=== PATIENT | female | born 1965 | race Caucasian/White ===

== ENCOUNTER 2016-10-30 16:38 | Emergency (ER) | payer MEDICARE, MEDICAID ==
[~2016-10-30] VITALS: Ht 168.9 cm; Wt 106.8 kg
[~2016-10-30 16:38] MED LIST: ALBU8.5H2 INHALATION; AMLO-39 PO; ASPI81TA3 PO; CARV25TA2 PO; CLOP75TA3 PO; FURO-128 PO; INSU100I13 SUBQ; INSU100V28 SUBQ; IPRA4AER IH; LORA0.5T PO; MULT-666 PO; NITR0.4T6 SL; PHO667 PO; RANI150C4 PO
[2016-10-30 16:50] VITALS: BP 130/65; PULSE 65; RESP 15; O2SAT 99
[2016-10-30 17:38] LABS: BASOPHILS % (AUTO) 0.2 % (0-3); EOSINOPHILS % (AUTO) 2.4 % (0-5); MONOCYTES % (AUTO) 6.6 % (4-12); Mean Corpuscular Hemoglobin 30.7 pg (27.0-35.0); Mean Corpuscular Volume 98.1 fL (81-100); NEUTROPHILS % (AUTO) 82.1 % (40-74); Platelet Count 389 bil/L (150-400)
[2016-10-30 17:54] LABS: INR 1.05 ratio
== END 2016-10-30 18:19 | disposition left against medical advice (07) ==
LOC: SED 16:38
DX: N23 Unspecified renal colic (principal)

== ENCOUNTER 2016-11-16 14:56 | Inpatient (IN) | payer MEDICARE, MEDICAID ==
[~2016-11-16] VITALS: Ht 167.6 cm; Wt 111.5 kg
[2016-11-16 15:08] VITALS: BP 138/68; PULSE 69; RESP 18; O2SAT 97
--- NOTE | 2016-11-16 16:18 | ED.REPORT ---
HPI-Extremity Problem Lower Date of Service Nov 16, 2016 ED Provider: Doc,Ed MD The patient is a 51 year old female with a history of diabetes mellitus, neuropathy, hypertension, hyperlipidemia, recurrent pneumonia, CHF, COPD, asthma, and end stage renal disease on dialysis, who presents to the emergency department complaining of a left toe ulcer that has been worsening over the last month. Her symptoms drastically worsened overnight. She has noticed some malodorous drainage from the site. Her left foot is also swollen and red. She has been soaking the wound in water and soap. She has not seen a business objects consultant or any other physician since onset. She has had similar symptoms on her right foot in the past that did not require amputation. She denies fever or chills. She has not been checking her sugars recently. Nursing Notes Stated Complaint: RT FOOT PAIN,ULCER Chief Complaint: Extremity Trauma Nursing Notes Reviewed: Yes Allergies: Coded Allergies: atenolol (Verified Adverse Reaction, Severe, PROFOUND HYPOTENSION, 11/16/16) Koklrjp-Dsc-Tao Reductase Inhibitor (Verified Adverse Reaction, Intermediate, Muscle Pain/Weakness, 11/16/16) clopidogrel (Verified Adverse Reaction, Intermediate, Bleeding, 11/16/16) ezetimibe (Verified Adverse Reaction, Intermediate, Muscle Pain/Muscle Weakness, 11/16/16) Scheduled Albuterol/Ipratropium (Combivent Respimat Inhal [employer]) 120 Spr/4 Gm Inhaler 1 PUFF IH QID Not taking Amlodipine (Norvasc) 5 Mg Tablet 5 MG PO HS Aspirin Chew (Aspirin Chew) 81 Mg Chew 81 MG PO HS Calcium Acetate (Phoslyra) 667 Mg/5 Ml Solution 667 MG PO TIDWM Doesn't remember to take often Carvedilol (Carvedilol) 25 Mg Tablet 25 MG PO BIDWM Cholecalciferol (Vitamin D3) (Vitamin D3) 50,000 Unit Capsule 50,000 UNIT PO WEEKLY Takes on Mondays Furosemide (Furosemide) 80 Mg Tab 80 MG PO HS Insulin Glargine (Lantus U100 Solostar Insulin Pen) 100 Unit/1 Ml Insuln.pen 30 UNIT SUBQ HS Insulin Regular, Human (HUMulin-R U100 Insulin Vial) 100 Unit/1 Ml Vial 3-6 UNIT SUBQ TIDWM SLIDING SCALE Lisinopril (Lisinopril) 5 Mg Tablet 5 MG PO HS Metolazone (Metolazone) 5 Mg Tablet 5 MG PO HS Multivitamin/Iron/Folic Acid (Cerovite Advanced Form Tab) 1 Each Tablet 1 EACH PO DAILY Sodium Polystyrene Sulfonate (Kionex) 15 Gm/60 Ml Oral.susp 15 GM PO //Sun Scheduled PRN Albuterol HFA (Proair HFA) 8.5 Gm Hfa.aer.ad 2 PUFFS INHALATION Q4H PRN PRN For Shortness of Breath Lorazepam (Lorazepam) 0.5 Mg Tablet 0.5 MG PO TID PRN PRN For Anxiety Uses mainly for insomnia Nitroglycerin SL (Nitroglycerin SL) 0.4 Mg Tab.subl 0.4 MG SL PRN HYPERtension Ranitidine (Ranitidine) 150 Mg Capsule 150 MG PO BID PRN PRN acid reflux Sumatriptan Succinate (Imitrex) 50 Mg Tablet 50 MG PO DAILY PRN PRN Migraines General Time Seen by MD: 16:17 Chief Complaint Foot injury left Hx Obtained From: Patient Arrived By: Walk-in Onset Occurred: More than a week ago... Symptom Duration: Since onset Location: : Foot left Quality: Painful Severity: Current: Mild Severity: Maximum: Moderate Additional Notes: +discharge Pertinent Negative: Pt denies other symptoms Recent Healthcare: No recent doctor visit, No recent hospitalization Similar Sx Previous: Yes (on right foot) Past Medical History Past Medical History Notes: PCP: Dr. Andrea Gandhi Fish Flipper: Dr. Grey [employer] Consultant: Dr. Bee Past Medical History CVA (07/15/14) Gallstones History of chronic headaches Multiple episodes of community-acquired pneumonia Chronic CHF secondary to diastolic dysfunction. Type 2 diabetes, insulin requiring with history of non adherence a. Nephropathy b. Diabetic Retinopathy c. Neuropathy d. Chronic nausea, suspected gastroparesis COPD reported though had fairly normal PFTs in 2011 Obesity BMI 38 Dyslipidemia Chronic abdominal discomfort. Prior history of bowel obstruction reportedly secondary to benign pelvic tumors. Ovarian cyst removal with bilateral oophorectomy and hysterectomy in 2000. Asthma HTN Hyperlipidemia ESRD dialysis dependency Sep 2014 Reports: Hyperlipidemia Past Surgical History Shunt rt forearm Bilateral oophorectomy Cardiac stents 06/29/15 Reports: , Hysterectomy Reports: Tubal ligation Smoking History Current Every Day Smoker Social History Alcohol Use: Denies alcohol use Drug Use: Denies drug use Other Social History: Ambulatory Status Independent Review of Systems Constitutional: Denies: Chills, Fever Musculoskeletal: Reports: Extremity pain, Joint pain Skin: Reports Rash, Reports Swelling Complete sys rev & neg: except as marked. Physical Exam Initial Vital Signs Vital Signs (First) Date Time Temp Pulse Resp B/P Pulse Ox O2 Delivery O2 Flow Rate FiO2 11/16/16 15:08 36.2 69 18 138/68 97 Initial VS: Reviewed Head / Eyes: Atraumatic, Normocephalic, PERRL ENT: Mucous membranes moist, Conjunctiva normal, No scleral icterus Neck: Supple, Non-tender, Full range of motion Respiratory: Breath sounds normal, Clear to auscultation, No respiratory distress Cardiovascular: Regular rate & rhythm, Heart sounds normal, Intact distal pulses Abdomen / GI: Soft, Non-tender, No guarding, No rebound, No distention Lymphatic: No lymphadenopathy Upper Extremities: Vascular intact, Neuro intact, No swelling, No tenderness Skin: Warm, Dry, No cyanosis Neurologic: Alert, Oriented, Nonfocal Psychiatric: Mood/affect normal, Behavior normal, Normal thought content Lower Extremity / Pelvis / MS: Neurologic intact, Vascular intact Ankle / Foot: Neurologic intact, Vascular intact Extremely malodorous and gangrenous appearing wound between her 3rd and 4th toes on the left foot. There is erythema and lymphangitis and edema of the left foot up to the ankle. Good PT and DP pulses. Sensation and motor intact. General/Constitutional: Awake, Alert, Cooperative Appearance / Presentation: Positive: Obese Upper Extremity / MS: Neurologic intact, Vascular intact Palpable graft in her right forearm with a good thrill. Interpretation & Diagnostics Lab Results Interpretation Result Diagram: 11/16/16 1657 11/16/16 1657 Test 11/16/16 16:57 White Blood Count 13.0th/mm3 (3.8-10.1) Red Blood Count 2.84mil/mm3 (3.90-5.20) Hemoglobin 8.8g/dL (12.0-15.6) Hematocrit 29.5% (35.0-46.0) Mean Corpuscular Volume 103.9fL (81-100) Mean Corpuscular Hemoglobin 31.0pg (27.0-35.0) Mean Corpuscular Hemoglobin Concent 29.8% (32.0-37.0) Red Cell Distribution Width 14.9% (12.3-15.4) Platelet Count 393bil/L (150-400) Neutrophils (%) (Auto) 81.4% (40-74) Lymphocytes (%) (Auto) 9.1% (14-46) Monocytes (%) (Auto) 6.8% (4-12) Eosinophils (%) (Auto) 2.0% (0-5) Basophils (%) (Auto) 0.2% (0-3) Erythrocyte Sedimentation Rate > 140mm/hr (0-40) Sodium Level 139mEq/L (134-144) Potassium Level 4.4mEq/L (3.5-5.2) Chloride Level 91mEq/L (97-108) Carbon Dioxide Level 29mmol/L (18-29) Blood Urea Nitrogen 56mg/dL (6-24) Creatinine 7.22mg/dL (0.57-1.00) Estimat Glomerular Filtration Rate 8mL/min (>59) Glucose Level 211mg/dL (60-99) Lactic Acid Level 1.4mmol/L (0.4-2.0) Calcium Level 8.3mg/dL (8.5-10.1) Phosphorus Level 7.5mg/dL (2.5-4.9) Magnesium Level 2.1mg/dL (1.6-2.6) Total Bilirubin 0.2mg/dL (0.0-1.2) Aspartate Amino Transf (AST/SGOT) 6U/L (0-50) Alanine Aminotransferase (ALT/SGPT) 5U/L (0-32) Alkaline Phosphatase 64U/L (25-150) Total Protein 7.6g/dL (6.4-8.4) Albumin 3.5g/dL (3.4-5.0) Procalcitonin 0.27ng/mL (0.00-0.08) Hold Zavala Top Tube Received (Received) X-Ray Interpretation Xray Interpretation: IMPRESSION: No bony abnormality is seen. Prominent atherosclerotic calcifications are seen. No radiopaque foreign body is identified. Dictated by: Joshua Taylor M.D. on 11/16/2016 at 18:03 X-Ray Ordered: Foot left Interpretation / Wet Read by: Interpret - Radiologist Re-Eval/Medical Decision Med Decision/Clinical Course 51-year-old female with past medical history of diabetes, on dialysis Sunday and Sunday here with worsening of a foot wound. Differential diagnosis includes but is not limited to cellulitis versus osteomyelitis versus necrotizing fasciitis versus electrolyte abnormality. Exam is not consistent with necrotizing fasciitis, and at this time, I do not feel she needs an emergent surgical consultation. He does not show evidence of osteomyelitis. Blood cultures were drawn, and patient was given vancomycin and Zosyn in the emergency department. I discussed with podiatry Dr Pardo who will see the patient in the morning, and have admitted the patient to the hospitalist service. Additionally, I discussed with nephrology Dr. Eddy who will be dialyzing the patient tomorrow. Patient is aware and amenable to plan. Source of Hx: Old records Re-Evaluation/Progress : Time of Eval: 18:00 Re-Evaluation/Progress Note: Discussed plan for admission with the patient. She is agreeable to stay. Consultation #1: Referral / Consult Name: Radha Pardo DPM Call Returned at: 18:55 Note: Discussed the patient's case with the on-call business objects consultant. She agrees to consult. Consultation #2: Referral / Consult Name: Roseline Maynard DO Consulted With: Hospitalist Call Returned at: 18:59 [employer]: Will see patient, Agrees with eval, Agrees with plan, Accepts admit Consultation #3: Referral / Consult Name: Malik Eddy DO Consulted With: Nephrology Requested Call at: 19:03 [employer]: Agrees with eval, Agrees with plan Note: Agrees to consult. Counseled Regarding: Diagnosis, Lab results, Need for admission Discharge & Departure Impression: Primary Impression: Diabetic foot ulcer Diabetes mellitus type: type 2 Laterality: left Qualified Code: E11.621 - Type 2 diabetes mellitus with foot ulcer Disposition: ADMITTED TO HOSPITAL Discharge Condition All VS Reviewed: Yes Condition: Stable Referrals: Andrea Gandhi MD Attestation Portions of this note were transcribed by Izabella Triana. IDr. Mahmood personally performed the history, physical exam and medical decision-making; I reviewed and confirmed the accuracy of the information in the transcribed note. Signed by: Noman Mobley, 11/16/2016 and 1905. copies to: OksanaAndrea josé MD, Rebecca A MD Nov 16, 2016 16:18 Kong,Izabella Banerjee Nov 16, 2016 16:33
[2016-11-16] MEDS ORDERED: 0.9% Sodium Chloride 1,000 ML IV ONE (16:31)
[2016-11-16] MEDS ORDERED: Piperacillin-Tazo 3.375 Gm Inj 3.375 GM in Dextrose 5% Minibag Plus 50 ML IV ONE (16:35)
[2016-11-16 17:09] LABS: BASOPHILS % (AUTO) 0.2 % (0-3); MONOCYTES % (AUTO) 6.8 % (4-12); Mean Corpuscular Volume 103.9 fL (81-100); NEUTROPHILS % (AUTO) 81.4 % (40-74); Platelet Count 393 bil/L (150-400)
[2016-11-16 17:34] LABS: Magnesium 2.1 mg/dL (1.6-2.6); Phosphorus 7.5 mg/dL (2.5-4.9)
[2016-11-16 17:40] LABS: ERYTHROCYTE SEDIMENTATION RATE > 140 mm/hr (0-40)
--- NOTE | 2016-11-16 18:05 | DRSVH ---
PROCEDURE: X-RAY LEFT FOOT COMPLETE, MINIMUM THREE VIEWS ([id number]) INDICATIONS: diabetic wound between 3rd and 4th digits TECHNIQUE: 3 views of the foot were acquired. COMPARISON: None. FINDINGS: Bones: No fractures or dislocations. No suspicious bony lesions. No erosive changes. Soft tissues: No tibiotalar joint effusion. Achilles tendon appears normal. Prominent atherosclero tic calcifications are present. IMPRESSION: No bony abnormality is seen. Prominent atherosclerotic calcifications are seen. No radiop aque foreign body is identified. Dictated by: Joshua Taylor M.D. on 11/16/2016 at 18:03 Approved by: Joshua Taylor M.D. on 11/16/2016 at 18:04
[2016-11-16] MEDS ORDERED: Furosemide 10 mg/mL 4 mL Inj IVPUSH ONE (18:20)
[2016-11-16] MEDS: Furosemide 10 mg/mL 2 mL Inj IVPUSH ONE ×2 (18:21→18:22)
[2016-11-16] MEDS ORDERED: Ondansetron 2 mg/mL 2 mL Inj IVPUSH PRN (19:05)
[2016-11-16] MEDS: Vancomycin Dose per Pharmacist XX SCH (19:05)
[2016-11-16] MEDS ORDERED: Polyethylene Glycol (PEG) 17 Gm Powder PO PRN (19:05)
[2016-11-16] MEDS ORDERED: VANCOMYCIN IV ONE (19:15)
[2016-11-16] MEDS ORDERED: LISI-571 PO (19:54)
[2016-11-16] MEDS ORDERED: ASPI81TA3 PO ×2 (20:02)
[2016-11-16] MEDS ORDERED: FRSM80T PO (20:03)
[2016-11-16] MEDS ORDERED: MULT1TAB59 PO (20:05)
[2016-11-16] MEDS ORDERED: METO5TAB5 PO (20:07)
[2016-11-16] MEDS ORDERED: SUMA50TA31 PO (20:08)
[2016-11-16] MEDS ORDERED: RANI150C4 PO (20:08)
[2016-11-16 20:10] VITALS: BP 145/70; PULSE 69; RESP 20; O2SAT 96
[2016-11-16] MEDS ORDERED: CHOL500050 PO (20:10)
[2016-11-16] MEDS ORDERED: CALC667S PO (20:11)
[2016-11-16] MEDS ORDERED: SODI15OR2 PO (20:12)
[2016-11-16 20:24] VITALS: BP 152/83; PULSE 73; RESP 20; O2SAT 92; O2SAT 95
--- NOTE | 2016-11-16 20:25 | PCM.CONPHA ---
Subjective Requesting Provider: Roseline Maynard DO Reason for Pharmacy Consult: Vancomycin Dosing Assessment/Plan Assessment/Plan Vancomycin dosing for diabetic foot with goal trough 15-20, with concurrent piperacillin/tazobactam: Vancomycin 1.25 Grams IV was given in the ER around 1630. Another 500mg was given at 2030 for a total of 1750mg. The patient has ESRD and is on dialysis. The floor pharmacist tomorrow will determine the dialysis schedule and order levels and subsequent dosing. WBC=13,000 Cultures pending. Xochitl Portillo [facility] Nov 16, 2016 20:25
[2016-11-16] MEDS ORDERED: Non-Formulary Medication (Ranitidine 150 MG) PO PRN (20:40)
[2016-11-16] MEDS ORDERED: Albuterol HFA 60 Puff 8 Gm Inhaler INHALATION PRN (20:40)
[2016-11-16] MEDS ORDERED: Glucose 40% Oral Gel 15 Gm Tube PO PRN (20:50)
--- NOTE | 2016-11-16 20:51 | PCM.HPMED ---
Subjective Date of Service Nov 16, 2016 Primary Provider: Admitting Physician: Roseline Maynard DO Primary Care Physician: Mata Attending Physician: Roseline Maynard DO Chief Complaint: Foot pain and swelling History of Present Illness: Juancarlos Robles is an obese 51-year-old female with history of diabetes on insulin and end-stage renal disease on hemodialysis (Mo, Fr), and significant peripheral arterial disease who presents to the ER (from urgent care) with 1 month complaint of nonhealing ulcers/lesions to her left third and fourth toes which acutely worsened yesterday with increased swelling, redness, pain to the left foot. Patient reports that she had a previous occurrence on her right foot years ago which healed well with conservative management at home. She notes that she has long-standing neuropathy in both feet, but states that she is able to feel. She reports that she first noted the lesions on her left third and fourth toes one month ago, and reports soaking her foot in soapy water, and keeping it covered with bandages. She reports that it would seem to get better, and then get worse again. She has not seen a physician for this. She has not been on any antibiotics in the last 3-6 months. She reports that she does not check her sugars very much, and there is some question of compliance. She reports that approximately one day ago she noticed the left foot started to swell, and get slightly red, and there was an increase in pain leading to her presentation at the urgent care clinic (and therefore) ER tonight. In the ER, her vital signs look good, but based on the appearance of the foot itself patient was started on empiric vancomycin and Zosyn. An x-ray of the foot did not demonstrate bony involvement. She was given 1 L of fluid IV, but subsequently noted some increased shortness of breath (she reports that she gets this way with too much fluid), and was given an IV dose of Lasix. ER physician discussed the case with nephrology and also with podiatry/orthopedics , and they agree with decision to admit for further management, and those specialists will be seeing the patient in the morning. Patient is admitted under inpatient status with expected length of stay greater than 2 midnights due to severity of presenting symptoms, risk of adverse event, and complexity of treatment plan. Review of Systems: Patient reports chronic, mildly productive cough for many years. She also reports occasional headaches but not currently. She reports some shortness of breath, especially with laying back, and attributes this to the fluid that she received in the ER. She reports that she will occasionally choke or cough when drinking fluid. She reports long-standing chronic pain, especially in her shoulders (however she notes "pain all over") for which she takes aspirin (she takes a full dose aspirin daily for CAD and history of stroke, but reports that she will occasionally take one or 2 more for the pains she has been having). Comprehensive review of systems conducted and was negative except for the pertinent positives listed in history of present illness above. Allergies Coded Allergies: atenolol (Verified Adverse Reaction, Severe, PROFOUND HYPOTENSION, 11/16/16) Zvjgvhx-Ilf-Nab Reductase Inhibitor (Verified Adverse Reaction, Intermediate, Muscle Pain/Weakness, 11/16/16) clopidogrel (Verified Adverse Reaction, Intermediate, Bleeding, 11/16/16) ezetimibe (Verified Adverse Reaction, Intermediate, Muscle Pain/Muscle Weakness, 11/16/16) Home Medications From [facility] not yet completed: Juancarlos Robles [id number] 11/16/2016 02:00 PM 09/21 amlodipine 5 mg tablet take 1 tablet by oral route every day aspirin 81 mg tablet,delayed release take 1 tablet by oral route every day carvedilol 25 mg tablet take 1 tablet by oral route 2 times every day with food Cerovite Advanced Formula 18 mg-400 mcg tablet TAKE ONE TABLET BY MOUTH EVERY DAY furosemide 40 mg tablet take 1 tablet by oral route 2 times every day Humulin R 100 unit/mL injection solution inject by subcutaneous route as per insulin sliding scale protocol LANTUS 100 UNITS/ML VIAL INJECT 30 UNITS SUBCUTANEOUSLY DAILY AT BEDTIME lisinopril 5 mg tablet take 1 tablet by oral route every day lorazepam 0.5 mg tablet take 1 tablet by oral route 2 times every day as needed multivitamin capsule take 1 capsule by oral route every day as needed nitroglycerin 0.[address] 1 tablet by sublingual route at the 1st sign of attack; may repeat every 5 min until relief; if pain persists after 3 tablets in 15 min, prompt medical attention is recommended Novolin R 100 unit/mL injection solution per prescriber's instructions. up to 10 units Pen Needle 32 x 5/32" INJECT LANTUS INSULIN DAILY True Metrix Glucose Meter Check blood sugars 5 times/day True Metrix Glucose Test Strip inject 1 by Subcutaneous route 5 times every day VENTOLIN HFA 90 MCG INHALER INHALE TWO PUFFS BY MOUTH EVERY 4 TO 6 HOURS NEEDED PMH CVA (07/15/14)-she reports residual effects difficulty with swallowing occasionally, and occasional left sided weakness Gallstones History of chronic headaches Multiple episodes of community-acquired pneumonia CAD status post UT with patient report of stent placement a. Patient underwent stress test with myocardial perfusion scanning 06/2016: * Impression was abnormal stress test consistent with prior infarction (fixed defect in the inferior wall) but low risk for significant ischemia. Also demonstrated dilated LV with moderately reduced function (stress EF 31%, rest EF 43%). No EKG changes at that time. No angina or equivalent. Chronic CHF secondary to diastolic dysfunction. a. -ECHO 06/2016, showed LV chamber mildly enlarged. EF 45-50%. Severe hypokinesis along the inferior wall and part of the inferolateral wall. RVSP estimated at 45. LA is moderately dilated, and RA is mildly dilated. Moderate MR. Type 2 diabetes, insulin requiring with history of non adherence a. Nephropathy b. Diabetic Retinopathy c. Neuropathy d. Chronic nausea, suspected gastroparesis e. Diabetic foot ulcers Peripheral arterial disease status post bilateral lower extremity vascular stent placement per patient report COPD reported though had fairly normal PFTs in 2011 Obesity BMI 39.5 Chronic abdominal discomfort. Prior history of bowel obstruction reportedly secondary to benign pelvic tumors. Ovarian cyst removal with bilateral oophorectomy and hysterectomy in 2000. Asthma HTN Hyperlipidemia ESRD dialysis dependency Sep 2014 (schedule is Sunday and Sunday) Past Surgical History Shunt rt forearm Bilateral oophorectomy Cardiac stents 06/29/15 Reports: , Hysterectomy Reports: Tubal ligation Family History Mother had liver cancer. Father had complications with "twisted gut" (torsion?) . Brother with a seizure disorder Father also had emphysema Mother also had colon cancer Social History Hx Alcohol Use: Yes Hx Substance Use: No Hx Tobacco Use: Yes Smoking Status: Current Every Day Smoker Living Arrangement: with Family ( in [place]) Additional Information patient is . She lives with her in [place]. She reports having 2 daughters and 1 son (she reports the son is ). Smoked one- half pack for 40 years with occasional periods of cessation, but currently smoking reportedly several cigarettes daily. No current alcohol or illicit drug use. Exam Vital Signs Vital Sign - Last Date Time Temp Pulse Resp B/P Pulse Ox O2 Delivery O2 Flow Rate FiO2 11/16/16 15:08 36.2 69 18 138/68 97 Exam General: Obese female lying on [facility] with head of bed approximately 45. Alert, Oriented X3, Cooperative, No Acute-mild Distress (does mention discomfort all over) Head: Normocephalic, atraumatic. External ears normal. Eyes: PERRL, EOMI. Anicteric sclerae. Conjunctiva are not injected Mouth: Mouth Normal, Mucous Membranes Moist/[place]. Poor dentition Neck: Neck supple with full range of motion. No Thyromegaly. Chest & Lungs: Clear to auscultation bilaterally with no crackles, or rhonchi. However, there are some scattered expiratory wheezes. Respiratory effort is normal without use of accessory muscles Cardiovascular: Regular Rate/Rhythm, Normal S1, Normal S2, 1/6 systolic murmur that does not radiate. No carotid bruits. Radial pulses are 2+ bilaterally. Posterior tibial pulses are about the same. Abdomen: Non-tender, Non-distended, No masses, Normoactive bowel tones, Soft Musculoskeletal: Normal Range of Motion Extremities: Left foot and calf demonstrates mild pitting edema that becomes nonpitting in the lower leg. There is some very mild erythema of the foot associated with mild tenderness to palpation. The left third and fourth toes demonstrates villegas/black discoloration consistent with potential necrotic tissue and are malodorous, but do not appreciate significant warmth. There is a well- healed ulceration on the dorsal surface of the great toe on the left. Pain is not out of proportion with exam and do not appreciate subcutaneous crepitus. Neurological: Grossly Neurologically Intact, Cranial Nerves 2-12 Intact, Normal Speech Psych: Normal mood and affect (perhaps minimally agitated with this situation) . Thought process and content intact. Lab and Diagnostics Labs Laboratory Tests 72 Hours Test 11/16/16 16:57 White Blood Count 13.0th/mm3 (3.8-10.1) Red Blood Count 2.84mil/mm3 (3.90-5.20) Hemoglobin 8.8g/dL (12.0-15.6) Hematocrit 29.5% (35.0-46.0) Mean Corpuscular Volume 103.9fL (81-100) Mean Corpuscular Hemoglobin 31.0pg (27.0-35.0) Mean Corpuscular Hemoglobin Concent 29.8% (32.0-37.0) Red Cell Distribution Width 14.9% (12.3-15.4) Platelet Count 393bil/L (150-400) Neutrophils (%) (Auto) 81.4% (40-74) Lymphocytes (%) (Auto) 9.1% (14-46) Monocytes (%) (Auto) 6.8% (4-12) Eosinophils (%) (Auto) 2.0% (0-5) Basophils (%) (Auto) 0.2% (0-3) Erythrocyte Sedimentation Rate > 140mm/hr (0-40) Sodium Level 139mEq/L (134-144) Potassium Level 4.4mEq/L (3.5-5.2) Chloride Level 91mEq/L (97-108) Carbon Dioxide Level 29mmol/L (18-29) Blood Urea Nitrogen 56mg/dL (6-24) Creatinine 7.22mg/dL (0.57-1.00) Estimat Glomerular Filtration Rate 8mL/min (>59) Glucose Level 211mg/dL (60-99) Lactic Acid Level 1.4mmol/L (0.4-2.0) Calcium Level 8.3mg/dL (8.5-10.1) Phosphorus Level 7.5mg/dL (2.5-4.9) Magnesium Level 2.1mg/dL (1.6-2.6) Total Bilirubin 0.2mg/dL (0.0-1.2) Aspartate Amino Transf (AST/SGOT) 6U/L (0-50) Alanine Aminotransferase (ALT/SGPT) 5U/L (0-32) Alkaline Phosphatase 64U/L (25-150) Total Protein 7.6g/dL (6.4-8.4) Albumin 3.5g/dL (3.4-5.0) Procalcitonin 0.27ng/mL (0.00-0.08) Hold [place] Top Tube Received (Received) Result Diagram: 3/2/17 1657 3/2/17 1657 Microbiology Blood cultures pending Did not obtain swab culture of the foot as it would likely not be beneficial in her workup or management proceeding forward. X-Rays, CTs and MRIs Date of Service: 11/16/16 1631 PROCEDURE: X-RAY LEFT FOOT COMPLETE, MINIMUM THREE VIEWS ([id number]) IMPRESSION: No bony abnormality is seen. Prominent atherosclerotic calcifications are seen. No radiopaque foreign body is identified. Dictated by: Joshua Taylor M.D. on 11/16/2016 at 18:03 12-lead ECG Not performed this visit, and patient denies any history of palpitations, irregular heart rhythm. Cardiac Echo Impressions See past medical history above. Assessment & Plan Juancarlos Robles is an obese 51-year-old female with history of diabetes on insulin and end-stage renal disease on hemodialysis (Mo, Fr), and significant peripheral arterial disease who presents to the ER (from urgent care) with 1 month complaint of nonhealing ulcers/lesions to her left third and fourth toes which acutely worsened yesterday with increased swelling, redness, pain to the left foot. PCP is Dr. Gandhi Retail Customer Service Representative most recently mentioned to be Dr. Grey (do not see any recent nephrology notes an outpatient record) Rail Transportation Operator is Dr. Bee 1. Necrotic, nonhealing, diabetic foot ulcerations of the third and fourth toes on the left with associated cellulitis, acute on chronic. Present on admission. -Differential includes: Calciphylaxis, osteomyelitis (this is a major concern given the ulcer duration, and the ESR greater than 70), arterial insufficiency ulcer. -Likely polymicrobial, but could be monomicrobial as she doesn't report getting abx recently: * Empiric antibiotics with vancomycin and Zosyn (both renally adjusted). * Await debridement (with associated culturing samples at that time) in order to tailor our regimen. -Dr. Rasmussen of podiatry/orthopedics will see in the morning for assessment and likely debridement/amputation. -Gentle administration of fluids on an as-needed basis given patient's complaint of shortness of breath. -Glycemic control with insulin. -Electrolyte monitoring, and replace as necessary (per nephrology recommendations). -Nursing to bandage foot overnight, and consideration for wound care consultation per Dr. Pardo's recommendations. -Constant carb diet. -Consideration for trending ESR and CRP to monitor for response to therapy. -Repeat pro calcitonin tomorrow. -Will make narcotic available for moderate-severe pain 2. End-stage renal disease on hemodialysis (Sunday and Sunday) * Associated renal osteodystrophy -Dr. Eddy of nephrology will see in the morning for likely dialysis. -Fluid and electrolyte management as above. -We will continue the patient's lisinopril, but will hold off on continuing the furosemide and ?Metolazone until seen and evaluated by nephrology 3. Chronic macrocytic anemia (with potential contribution from her chronic kidney disease, and potential acute contribution from her infection as noted above) -Management as above -B12 and folate were last checked in 2011, and we will repeat. Chronic conditions: CVA (07/15/14)-she reports residual effects difficulty with swallowing occasionally, and occasional left sided weakness-do not appreciate any need at this time to assess with a swallow eval History of chronic headaches CAD status post UT with patient report of stent placement-continue cardiac meds Chronic CHF secondary to diastolic dysfunction-continue cardiac meds Type 2 diabetes, insulin requiring with history of non adherence-management as above a. Nephropathy b. Diabetic Retinopathy c. Neuropathy d. Chronic nausea, suspected gastroparesis Peripheral arterial disease status post bilateral lower extremity vascular stent placement per patient report-management as above COPD/Asthma-continue inhaled medications Obesity BMI 39.5 Chronic pain, not on opiates Tobacco dependence-encourage cessation HTN-continue antihypertensives Hyperlipidemia-not on a statin (patient reports history of allergies/ intolerance to such) PRN MEDICATIONS - Acetaminophen as needed for mild pain/fever/headache - Bowel regimen as needed - Antiemetic as needed Patient is admitted under inpatient status with expected length of stay greater than 2 midnights due to severity of presenting symptoms, risk of adverse event, and complexity of treatment plan. Pain Evaluation: Adequate Pain Control GI Prophylaxis: Not indicated VTE Prophylaxis: Sub-Q Heparin (Unfractionated) Resuscitation Status: CPR: Attempt Resuscitation Attending Statement The patient was seen and examined together with house staff on 11/16/2016 and I agree with the history, exam and plan as outlined in the note above. copies to: Andrea Gandhi MD, Collin T DO Nov 16, 2016 20:39 Roseline Maynard DO Nov 17, 2016 02:54
[2016-11-16] MEDS ORDERED: Albuterol 2.5 mg/3 mL Inhalation Solution NEB PRN (21:00)
[2016-11-16] MEDS ORDERED: Vancomycin Inj 500 MG in 0.9% Sodium Chloride 100 ML IV ONE (21:00)
[2016-11-16] MEDS ORDERED: ASPI325T32 PO ×2 (21:28→21:31)
[2016-11-16] MEDS ORDERED: Albuterol-Ipratropium 120 Spray 4 Gm Inhaler INHALATION SCH (21:30)
[2016-11-16 21:31] VITALS: PULSE 72; RESP 24; O2SAT 95
[2016-11-16] MEDS: Albuterol-Ipratropium 3 mL Inhalation Solution NEB SCH (21:34)
--- NOTE | 2016-11-16 21:38 | NUR ---
Admit nurse note Admission assessment completed. Med review completed by pharmacist based on QFC and pt. recall. Pt. c/o "pain all over," which is chronic for her, and for which she takes 1-4 regular asa up to tid. This is noted. MD to be notified by primary RN. Pt. is also concerned that she get her carvedilol, which was ordered starting tomorrow morning. Primary RN to follow up regarding this. Pt. is up and steady in room to bathroom. Allergies verified and sticker placed on name band. Referral to case management made for advance directives information. Pt. states she is quitting smoking now and declines information. Pt. cannot remember if she had a flu shot and states she'll take another. Pt. states she has a hard time reading and so verbal instruction would be warranted. High risk for sleep apnea so protocol is initiated. PT. is currently eating [employer] and a milkshake. Pt. is educated to diabetic diet and her currently high blood sugar. Pt. states she plans to adhere to the diet starting tomorrow. Report given to Seble Sanchez
[2016-11-16] MEDS: HYDROcodone-APAP 5-325 mg Tablet PO PRN (21:47)
[2016-11-16] MEDS: Insulin LISPRO 300 Unit/3 mL Inj SUBQ SCH (22:00)
[2016-11-16] MEDS: Insulin GLARgine 100 Unit/mL Syringe SUBQ SCH (22:33)
[2016-11-17] MEDS ORDERED: Heparin 5,000 Unit/mL Inj SUBQ SCH (00:30)
[2016-11-17 00:39] VITALS: BP 135/68; PULSE 72; RESP 20; O2SAT 94
--- NOTE | 2016-11-17 01:14 | NUR ---
admit admit arrived from ED to [facility] room 1010 at 2020. admit nurse completed admit and med rec was completed by pharmacist in ED. pt complained of 10/10 pain that was chronic joint pain. notified who ordered norco 5/325 prn Q6. pt was given her norco but again said that her pain was still 10/10. notified again who ordered a K-pad. pt resting with a k-pad still complaining of pain but says the heat helps. also ordered a MRSA nasal swab. pt has refused the test tonight. she says it can be done in the morning. pt also refused to allow nurse to do a skin check. she changed into her gown while nurse was out of the room and said she was too tired to roll over to let nurse check her skin. pt also refused the pulse ox. the purpose of the pulse ox was explained to pt but she still refused saying "I have hard enough time sleeping as it is". pt refused SCD's for the same reason. VSS and afebrile. pt up independently in room, steady on her feet. care continues
[2016-11-17 04:15] VITALS: BP 123/73; PULSE 67; RESP 20; O2SAT 96
[2016-11-17] MEDS ORDERED: Vancomycin Serum Trough XX ONE (05:00)
[2016-11-17 06:04] LABS: BASOPHILS % (AUTO) 0.1 % (0-3); EOSINOPHILS % (AUTO) 2.9 % (0-5); MONOCYTES % (AUTO) 8.4 % (4-12); Mean Corpuscular Hemoglobin 30.9 pg (27.0-35.0); Mean Corpuscular Volume 104.4 fL (81-100); NEUTROPHILS % (AUTO) 79.1 % (40-74); Platelet Count 332 bil/L (150-400)
[2016-11-17 06:37] LABS: Phosphorus 7.9 mg/dL (2.5-4.9)
[2016-11-17] MEDS: Albuterol-Ipratropium 3 mL Inhalation Solution NEB SCH ×5 (07:00→21:39)
[2016-11-17] MEDS: Insulin LISPRO 300 Unit/3 mL Inj SUBQ SCH ×4 (08:00→22:00)
[2016-11-17] MEDS ORDERED: Influenza (Adult) Vaccine 0.5 mL Syringe IM ONE (08:30)
[2016-11-17] MEDS: Heparin 5,000 Unit/mL Inj SUBQ SCH ×2 (10:05→20:30)
[2016-11-17] MEDS: Vancomycin Dose per Pharmacist XX SCH (10:06)
[2016-11-17] MEDS ORDERED: 0.9% Sodium Chloride 250 ML ONE (10:08)
[2016-11-17] MEDS ORDERED: HYDROmorphone 1 mg/mL Inj IVPUSH PRN (10:55)
[2016-11-17 10:58] LABS: APPEARANCE,URINE CLEAR (CLEAR,HAZY); COLOR,URINE YELLOW (YELLOW); OCCULT BLOOD,URINE TRACE (NEGATIVE); PH,URINE 7.5 (5.0-8.0); UROBILINOGEN,URINE NORMAL (NORMAL)
--- NOTE | 2016-11-17 11:02 | PCM.PNMED ---
Subjective Date of Service Nov 17, 2016 Subjective pt refused dialysis this AM, denied any complaints but wishes to leave today plan per is to do toe amputation tomorrow, no need for bone scan Exam Vital Signs Vital Sign - Last Date Time Temp Pulse Resp B/P Pulse Ox O2 Delivery O2 Flow Rate FiO2 11/17/16 04:15 36.8 67 20 123/73 96 Room Air Intake and Output 11/16/16 11/16/16 11/17/16 Cumulative From/Thru 14:59 22:59 06:59 11/16/16 15:08 - 11/17/16 06:30 Intake Total 999 ml 700 ml 1699 ml Balance 999 ml 700 ml 1699 ml Intake Oral 700 ml 700 ml IV Total 999 ml 999 ml # Voids 1 1 # Bowel Movements 0 0 Exam obese middle aged female, looked distressed no JVD, MMM, no LAD RRR, nl s1, s2 no mrg CTAB, no w,c S,ND,NT,normoactive BS+ warm, no edema, pulses 2/2 Lt toe-sterilely dressed IVs and Medications Medications Reviewed: Medications were reviewed in detail Lab and Diagnostics Result Diagram: 11/17/16 0545 11/17/16 0545 Microbiology Blood cultures pending Did not obtain swab culture of the foot as it would likely not be beneficial in her workup or management proceeding forward. X-Rays, CTs and MRIs Date of Service: 11/16/16 1631 PROCEDURE: X-RAY LEFT FOOT COMPLETE, MINIMUM THREE VIEWS ([id number]) IMPRESSION: No bony abnormality is seen. Prominent atherosclerotic calcifications are seen. No radiopaque foreign body is identified. Dictated by: Joshua Taylor M.D. on 11/16/2016 at 18:03 12-lead ECG Not performed this visit, and patient denies any history of palpitations, irregular heart rhythm. Cardiac Echo Impressions See past medical history above. Assessment & Plan Juancarlos Robles is an obese 51-year-old female with history of diabetes on insulin and end-stage renal disease on hemodialysis (Mo, Fr), and significant peripheral arterial disease who presents to the ER (from urgent care) with 1 month complaint of nonhealing ulcers/lesions to her left third and fourth toes which acutely worsened yesterday with increased swelling, redness, pain to the left foot. acute, active #Necrotic, nonhealing, diabetic foot ulcerations of the third and fourth toes on the left with associated cellulitis, acute on chronic. Present on admission. -appreciate podiatry input, NPO after MN for tentative amputation tomorrow -continue vancomycin and zosyn for now, will wait for cultures, -FU BCX, MRSA swab -pain control with norco and dilaudid prn #Type 2 diabetes, uncontrolled a1c8.0 c/b Nephropathy, Diabetic Retinopathy, Neuropathy, Chronic nausea, suspected gastroparesis -continue [id number] qhs, lispro SS #ESRD on HD, pt refused HD today, questionable compliance, appreciate renal recs , avoid renal toxin, adjust meds renally chronic, stable #Chronic macrocytic anemia, h/h stable, awaits vitB12/folate, trends h/h #CVA (07/15/14) with residual swallowing occasionally, and occasional left sided weakness, will continue diet, consider s/s eval if indicated #History of chronic headaches #CAD status post UT with patient report of stent placement-continue cardiac meds #Chronic CHF secondary to diastolic dysfunction-continue cardiac meds #Peripheral arterial disease status post bilateral lower extremity vascular stent placement per patient report-management as above #COPD/Asthma-continue inhaled medications #Obesity BMI 39.5 #Chronic pain, not on opiates #Tobacco dependence-encourage cessation #HTN-continue antihypertensives #Hyperlipidemia-not on a statin (patient reports history of allergies/ intolerance to such) dispo: likely prolonged>3more days, high risks of AMA Full Code diet: advance as tolerate, NPO after MN dvt ppx: HSQ q12h GI Prophylaxis: Not indicated VTE Prophylaxis: Sub-Q Heparin (Unfractionated) Resuscitation Status: CPR: Attempt Resuscitation Time spent 35min Danis Thomas MD Nov 17, 2016 11:02
[2016-11-17 11:38] VITALS: BP 118/70; PULSE 70; RESP 16; O2SAT 90
[2016-11-17] MEDS: Piperacillin-Tazo 3.375 Gm Inj 3.375 GM in Dextrose 5% Minibag Plus 50 ML IV SCH ×2 (11:50→22:10)
[2016-11-17] MEDS: HYDROcodone-APAP 5-325 mg Tablet PO PRN (12:21)
--- NOTE | 2016-11-17 12:38 | NUR ---
Refusals/off unit Pt refusing dialysis if she could not do it in a recliner, as opposed to the bed. Pt yelling at nursing staff and . Andressa, dimensional engineer, Dr Eddy and hospitalist aware. AM meds initially held for scheduled dialysis. Pt had refused dialysis, meds were administered late (except those that she refused) then arrangements were made and pt went to [facility] for dialysis at 12:30. Report given to Andressa. Pt had stated she was going outside to smoke. I explained smoking policy and paged MD for nicotine patch.
--- NOTE | 2016-11-17 14:39 | PCM.PHAPRO ---
Progress Date of Service: Nov 17, 2016 Foot pain and swelling Vancomycin Management Per Pharmacy: Indication: diabetic foot ulcer in a dialysis patient Age: 51 Weight: 111.5 kg Labs: WBC: 12.1 Procalcitonin: 0.23 SCr: Dialysis Random vanco level: 19.9 Per dialysis nurse, patient to receive dialysis this afternoon. Give vancomycin 500 mg one time after dialysis. Pharmacy will continue to monitor daily and dose vancomycin as needed. Next dialysis is scheduled for 11/20. Random vanco level has been ordered for 11/20 at 0500. Thank you, Clay Antunez Nov 17, 2016 14:39
[2016-11-17] MEDS ORDERED: Vancomycin Inj 500 MG in 0.9% Sodium Chloride 100 ML IV ONE (15:00)
--- NOTE | 2016-11-17 15:24 | NUR ---
patient is unwilling to participate in any respiratory therapy today. she states "she just wants to sleep and be left alone". She has refused all nebulizer treatments today. would highly recommend discontinuing scheduled duoneb, pt seems quite agitated when RT wakes her up for tx.
--- NOTE | 2016-11-17 16:09 | NUR ---
Dialysis note Pt completed 2 1/2 hrs. of ordered 4 hr HD tx before asking to end tx. Dr. Eddy aware. 2 15 g needles to RL fistula. QB 450. No Heparin used. Pt had tx in a recliner chair, refusing to be in a bed, which was ok'd by Alayna manager research and development and written as an order per Dr. Eddy. See DTR for complete vitals. Pt c/o back pain and general discomfort through out tx. Dilaudid 1 mg IV given to try to relieve pain and comfort pt but was unsuccessful in decreasing pain. Sureseals/clamps X 5 mins post tx. Report given and pt returned to floor stable.
--- NOTE | 2016-11-17 17:32 | PCM.CHPPOD ---
Subjective Date of service Nov 17, 2016 History of Present Illness The patient is a 51-year-old woman with end-stage renal disease and undetermined length of time with peripheral arterial disease, status post stenting in the left lower extremity. She is stating that her wounds on her left foot have been present for several months and she has been treating them on her own. They became painful, black and malodorous. She presented to the emergency department with increasing pain. Upon my arrival, the patient was very irritable and frustrated. She directed her to leave the room. She chose not to answer most of my questions. Allergy Allergies: Coded Allergies: atenolol (Verified Adverse Reaction, Severe, PROFOUND HYPOTENSION, 11/16/16) Eobkynd-Ozm-Kuj Reductase Inhibitor (Verified Adverse Reaction, Intermediate, Muscle Pain/Weakness, 11/16/16) clopidogrel (Verified Adverse Reaction, Intermediate, Bleeding, 11/16/16) ezetimibe (Verified Adverse Reaction, Intermediate, Muscle Pain/Muscle Weakness, 11/16/16) Medications Albuterol HFA (Proair HFA) 8.5 Gm Hfa.aer.ad 2 PUFFS INHALATION Q4H PRN PRN For Shortness of Breath Albuterol/Ipratropium (Combivent Respimat Inhal [place]) 120 Spr/4 Gm Inhaler 1 PUFF IH QID Not taking Amlodipine (Norvasc) 5 Mg Tablet 5 MG PO HS Aspirin (Aspirin) 325 Mg Tablet 325-1,300 MG PO TID PRN PRN For Pain Aspirin (Aspirin) 325 Mg Tablet 325 MG PO DAILY Calcium Acetate (Phoslyra) 667 Mg/5 Ml Solution 667 MG PO TIDWM Doesn't remember to take often Carvedilol (Carvedilol) 25 Mg Tablet 25 MG PO BIDWM Cholecalciferol (Vitamin D3) (Vitamin D3) 50,000 Unit Capsule 50,000 UNIT PO WEEKLY Takes on Mondays Furosemide (Furosemide) 80 Mg Tab 80 MG PO HS Insulin Glargine (Lantus U100 Solostar Insulin Pen) 100 Unit/1 Ml Insuln.pen 30 UNIT SUBQ HS Insulin Regular, Human (HUMulin-R U100 Insulin Vial) 100 Unit/1 Ml Vial 3-6 UNIT SUBQ TIDWM SLIDING SCALE Lisinopril (Lisinopril) 5 Mg Tablet 5 MG PO HS Lorazepam (Lorazepam) 0.5 Mg Tablet 0.5 MG PO TID PRN PRN For Anxiety Uses mainly for insomnia Metolazone (Metolazone) 5 Mg Tablet 5 MG PO HS Multivitamin/Iron/Folic Acid (Cerovite Advanced Form Tab) 1 Each Tablet 1 EACH PO DAILY Nitroglycerin SL (Nitroglycerin SL) 0.4 Mg Tab.subl 0.4 MG SL PRN HYPERtension Ranitidine (Ranitidine) 150 Mg Capsule 150 MG PO BID PRN PRN acid reflux Sodium Polystyrene Sulfonate (Kionex) 15 Gm/60 Ml Oral.susp 15 GM PO //Sun Sumatriptan Succinate (Imitrex) 50 Mg Tablet 50 MG PO DAILY PRN PRN Migraines Past Medical History Reviewed Admit H&P dictated by: Dr. Gilberto Cano Surgeries: Yes (tubal ligation, c section, hysterectomy) Medical History: Surgical History: Other Pertinent Data: CVA (07/15/14)-she reports residual effects difficulty with swallowing occasionally, and occasional left sided weakness Gallstones History of chronic headaches Multiple episodes of community-acquired pneumonia CAD status post [place] with patient report of stent placement a. Patient underwent stress test with myocardial perfusion scanning 06/2016: Impression was abnormal stress test consistent with prior infarction (fixed defect in the inferior wall) but low risk for significant ischemia. Also demonstrated dilated LV with moderately reduced function (stress EF 31%, rest EF 43%). No EKG changes at that time. No angina or equivalent. Chronic CHF secondary to diastolic dysfunction. a. -ECHO 06/2016, showed LV chamber mildly enlarged. EF 45-50%. Severe hypokinesis along the inferior wall and part of the inferolateral wall. RVSP estimated at 45. LA is moderately dilated, and RA is mildly dilated. Moderate MR. Type 2 diabetes, insulin requiring with history of non adherence a. Nephropathy b. Diabetic Retinopathy c. Neuropathy d. Chronic nausea, suspected gastroparesis e. Diabetic foot ulcers Peripheral arterial disease status post bilateral lower extremity vascular stent placement per patient report COPD reported though had fairly normal PFTs in 2011 Obesity BMI 39.5 Chronic abdominal discomfort. Prior history of bowel obstruction reportedly secondary to benign pelvic tumors. Ovarian cyst removal with bilateral oophorectomy and hysterectomy in 2000. Asthma HTN Hyperlipidemia ESRD dialysis dependency Sep 2014 (schedule is Sunday and Sunday) Social History Hx Alcohol Use: Yes (hx) Hx Substance Use: No Hx Tobacco Use: Yes Smoking Status: Current Every Day Smoker Podiatry Consult Exam Vital Signs Vital Sign - Last Date Time Temp Pulse Resp B/P Pulse Ox O2 Delivery O2 Flow Rate FiO2 11/17/16 11:38 36.7 70 16 118/70 90 Room Air Intake and Output 11/16/16 11/16/16 11/17/16 Cumulative From/Thru 15:00 23:00 07:00 11/16/16 15:08 - 11/17/16 06:30 Intake Total 999 ml 700 ml 1699 ml Balance 999 ml 700 ml 1699 ml Intake Oral 700 ml 700 ml IV Total 999 ml 999 ml # Voids 1 1 # Bowel Movements 0 0 Result Diagram: 11/17/16 0545 11/17/16 0545 Lab Test 11/16/16 16:57 11/17/16 05:45 11/17/16 10:30 Hemoglobin A1c 8.0% (4.8-5.6) Lactic Acid Level 1.4mmol/L (0.4-2.0) Total Bilirubin 0.2mg/dL (0.0-1.2) Aspartate Amino Transf (AST/SGOT) 6U/L (0-50) Alanine Aminotransferase (ALT/SGPT) 5U/L (0-32) Alkaline Phosphatase 64U/L (25-150) C-Reactive Protein 13.6mg/dL (0.0-0.5) Total Protein 7.6g/dL (6.4-8.4) Albumin 3.5g/dL (3.4-5.0) Vitamin B12 Level 993pg/mL (211-946) Folate 17.9ng/mL (>3.0) Hold [place] Top Tube Received (Received) White Blood Count 12.1th/mm3 (3.8-10.1) Red Blood Count 2.49mil/mm3 (3.90-5.20) Hemoglobin 7.7g/dL (12.0-15.6) Hematocrit 26.0% (35.0-46.0) Mean Corpuscular Volume 104.4fL (81-100) Mean Corpuscular Hemoglobin 30.9pg (27.0-35.0) Mean Corpuscular Hemoglobin Concent 29.6% (32.0-37.0) Red Cell Distribution Width 14.9% (12.3-15.4) Platelet Count 332bil/L (150-400) Neutrophils (%) (Auto) 79.1% (40-74) Lymphocytes (%) (Auto) 9.1% (14-46) Monocytes (%) (Auto) 8.4% (4-12) Eosinophils (%) (Auto) 2.9% (0-5) Basophils (%) (Auto) 0.1% (0-3) Erythrocyte Sedimentation Rate > 140mm/hr (0-40) Sodium Level 141mEq/L (134-144) Potassium Level 4.6mEq/L (3.5-5.2) Chloride Level 96mEq/L (97-108) Carbon Dioxide Level 26mmol/L (18-29) Blood Urea Nitrogen 59mg/dL (6-24) Creatinine 7.35mg/dL (0.57-1.00) Estimat Glomerular Filtration Rate 8mL/min (>59) Glucose Level 151mg/dL (60-99) Calcium Level 7.7mg/dL (8.5-10.1) Phosphorus Level 7.9mg/dL (2.5-4.9) Magnesium Level 2.0mg/dL (1.6-2.6) Procalcitonin 0.23ng/mL (0.00-0.08) Vancomycin Level Trough 19.9mcg/mL Urine Color Yellow (YELLOW) Urine Appearance Clear (CLEAR,HAZY) Urine pH 7.5 (5.0-8.0) Urine Specific [place] 1.015 (1.003-1.035) Urine Protein 100mg/dL (NEG,TRACE) Urine Glucose (UA) Negativemg/dL (NEGATIVE) Urine Ketones Negativemg/dL (NEGATIVE) Urine Occult Blood Trace (NEGATIVE) Urine Nitrite Negative (NEGATIVE) Urine Bilirubin Negative (NEGATIVE) Urine Urobilinogen Normalmg/dL (NORMAL) Urine Leukocyte Esterase Negative (NEGATIVE) Urine RBC 0-2/hpf (0-2) Urine WBC 0-5/hpf (0-5) Urine Epithelial Cells Occasional/hpf (NONE-MOD) Urine Crystals None seen (NONE SEEN) Urine Bacteria None/hpf (NONE-FEW) Urine Hyaline Casts None/lpf (NONE) Urine Granular Casts None seen (NONE SEEN) Urine Waxy Casts None seen (NONE SEEN) Urine Red Blood Cell Casts None seen (NONE SEEN) Urine White Blood Cell Casts None seen (NONE SEEN) Urine Mucus None seen (None Seen) Urine Trichomonas None seen (NONE SEEN) Urine Yeast None (NONE SEEN) Urinalysis Comment None Urine Culture Reflexed Not indicated Exam General: Alert, Oriented X3, Mild Distress (due to generalized pain.) Lower Extremities: Left: Edema localized (lower extremity, especially forefoot ) Extremity warm (left forefoot with erythema) Lower Extremity Pulses: Palpable: Left Dorsalis Pedis Left Posterior Tibal Doppler: Right Dorsalis Pedis Right Posterior Tibal Podiatry WOUND : Wound Location/Description Wet, necrotic toes 3 and 4, including the web space between them. A small area of necrosis in the fourth webspace. Capillary refill to the tips of the toes is approximately 4 seconds. The toes are warm to touch. No other open areas on the left or the right foot. Assessment & Plan Problems: (1) Gangrene of toe Plan: This patient is experiencing gangrenous changes to the left forefoot, unsure of etiology. She has fluctuating edema and poor compliance with care overall, making it likely that her feet probably became edematous inside of the shoe and the pressure of the digits against each other cause ischemic necrosis, which then became infected. I have discussed my findings with Dr. Thomas. Even if the bone appears viable, no changes of osteomyelitis on x-rays, bone scan would not be helpful as the patient would still need amputation. I have discussed this with her. I have scheduled an operating room time midday tomorrow for amputation of the third and fourth toes with the possibility of the fifth toe as well, depending on how much of the tissue is necrotic. Due to her history of potential calciphylaxis, it is important to maintain as much of that viable soft tissue as possible. Otherwise, she would be a good candidate for transmetatarsal amputation, given her living situation in a trailer and very poor assistance at home. She will be nothing by mouth after midnight. She has refused heparin, which will be helpful with the planned procedure. I am not concerned about the presence of aspirin, given her peripheral vascular disease. I have discussed the case with Dr. Brandon from anesthesiology. The patient did not have any questions for me. She indicated understanding of my proposed procedure and the reasoning for it. I did review the risks of further amputation with her, as well as risks of poor healing due to peripheral arterial disease. At this point, the perfusion seems to be adequate to heal at the level of the proposed procedure. Status: Acute ICD Code: I96 VTE Prophylaxis: Sub-Q Heparin (Unfractionated) Radha Pardo DPM Nov 17, 2016 17:32
--- NOTE | 2016-11-17 17:57 | CONS ---
[address] [address] CONSULTATION REPORT PATIENT: LARRY GRULLON : 1965 MR#: [id number] ADMIT: 11/16/2016 JOB ID: [id number] DATE OF SERVICE: 11/17/2016 RENAL CONSULTATION: HISTORY OF PRESENT ILLNESS: The patient is a 51-year-old white female who was admitted for what appears to be a diabetic foot ulcer. She has a history of end-stage renal disease and renal consultation is being sought for further evaluation and management of her end-stage renal disease. The patient is a difficult historian in that she is very angry, hostile, and surly. She has been on dialysis for several years and the patient refuses to say how long. The etiology of her renal failure is due to poorly controlled and noncompliant diabetes. Her diabetes has been complicated by peripheral arterial disease, peripheral neuropathy, and end-stage renal disease. She is supposed to dialyze three days a week but is chronically noncompliant with her dialysis and at best dialyzes only two days a week for short treatments. There is about a one month history of a nonhealing lesion on her 3rd and 4th left toes which the day prior to admission became quite edematous, erythematous, and painful. She went to the ER and was subsequently admitted. Today is her dialysis day. PAST MEDICAL HISTORY: Significant for: 1. End-stage renal disease, dialysis dependent. 2. Diabetes with diabetic nephropathy. 3. Peripheral vascular disease. 4. Hypertension with hypertensive heart disease and hypertensive nephrosclerosis. 5. Prior stroke. 6. Chronic noncompliance. 7. Congestive heart failure with diastolic dysfunction. 8. Coronary artery disease. 9. History of asthma. 10. Hyperlipidemia. 11. She also has what appears to be severe depression. She denies any suicidal ideation and refused to talk about anything related to this topic. PAST SURGICAL HISTORY: Significant for a left AV fistula, bilateral oophorectomy, placement of several cardiac stents, section, hysterectomy, and tubal ligation. ALLERGIES: BETA BLOCKERS, STATINS, CLOPIDOGREL, AND . SOCIAL HISTORY: She states that she continues to smoke less than a half a pack of cigarettes a day and uses alcohol, but once again she is a very difficult historian. REVIEW OF SYSTEMS: Quite limited given the patient's refusal to answer questions. PHYSICAL EXAMINATION: Revealed a somewhat dark complected, sallow appearing, 51-year-old white female who was awake and angry. Her blood pressure is 135/68 with a pulse rate of 72. HEENT examination was remarkable for pale sclerae and uremic fetor. Neck is supple, without adenopathy, thyromegaly, or jugular venous distention. Lungs are clear to auscultation. Heart was regular and rhythmical, with a soft systolic murmur. Abdomen is soft, without any tenderness, rebound, guarding, or masses. Her left foot was bandaged and this was not explored. There was no edema noted. LABORATORY DATA: This morning her CBC showed 12.1 white count, 7.7 hemoglobin, 104 MCV, normal differential, however her sed rate is greater than 140. Her sodium is 141, potassium 4.6, chloride 96, bicarbonate 26, BUN and creatinine were 59 and 7.35, respectively. Her phosphorus is markedly elevated at 7.9. A urinalysis was unremarkable. Her Vancomycin trough today was 19.9. IMPRESSION: 1. End-stage renal disease, dialysis dependent. 2. Chronic uremia from under-dialysis. 3. Noncompliance. 4. Diabetic foot ulcer. 5. Diabetic nephropathy. 6. Depression. RECOMMENDATION: 1. I have ordered a 4-hour dialysis treatment on a 2 potassium bath. Her standard heparin and try to take 2-3 kg off as tolerated. 2. I would also strongly recommend some type of psychiatric evaluation for her depression.
--- NOTE | 2016-11-17 18:25 | NUR ---
Refusals Pt refused Citalopram and Coreg this evening. Addendum: 11/17/16 at 1837 by CADEN ANTONIO RN Despite education, still refuses. MD lea paged to inform.
[2016-11-17 20:28] VITALS: BP 109/66; PULSE 77; RESP 16; O2SAT 91
[2016-11-17 21:39] VITALS: PULSE 76; RESP 20; O2SAT 82
[2016-11-17] MEDS: Insulin GLARgine 100 Unit/mL Syringe SUBQ SCH (22:18)
[2016-11-18] VITALS (8 sets, daily range): BP systolic 102–135; BP diastolic 57–72; PULSE 66–81; RESP 17–20; O2SAT 90–98
[2016-11-18] MEDS ORDERED: Propofol 10,000 mCg/mL 20 mL Inj ONE (04:00)
[2016-11-18] MEDS ORDERED: fentaNYL-PF 50 mCg/mL 2 mL Inj ONE (04:00)
[2016-11-18] MEDS: HYDROcodone-APAP 5-325 mg Tablet PO PRN ×3 (04:01→21:32)
--- NOTE | 2016-11-18 05:30 | NUR ---
GI; NPO at after midnight. No c/o nausea or vomiting. Anxious at times. Agreed to take po meds at bedtime.
[2016-11-18 06:25] LABS: Magnesium 1.9 mg/dL (1.6-2.6); Phosphorus 5.6 mg/dL (2.5-4.9)
[2016-11-18 06:28] LABS: BASOPHILS % (AUTO) 0.1 % (0-3); EOSINOPHILS % (AUTO) 2.1 % (0-5); MONOCYTES % (AUTO) 9.5 % (4-12); Mean Corpuscular Hemoglobin 30.8 pg (27.0-35.0); Mean Corpuscular Volume 104.2 fL (81-100); NEUTROPHILS % (AUTO) 80.4 % (40-74); Platelet Count 343 bil/L (150-400)
[2016-11-18] MEDS: Insulin LISPRO 300 Unit/3 mL Inj SUBQ SCH ×4 (07:17→21:49)
[2016-11-18] MEDS: Heparin 5,000 Unit/mL Inj SUBQ SCH ×2 (07:17→21:31)
[2016-11-18] MEDS: Vancomycin Dose per Pharmacist XX SCH (07:56)
[2016-11-18] MEDS: Piperacillin-Tazo 3.375 Gm Inj 3.375 GM in Dextrose 5% Minibag Plus 50 ML IV SCH ×2 (07:56→21:43)
[2016-11-18] MEDS ORDERED: Famotidine Inj 20 MG in IV Premix 1 EACH IV ONE (08:10)
[2016-11-18] MEDS: Albuterol-Ipratropium 3 mL Inhalation Solution NEB SCH ×4 (08:27→21:58)
--- NOTE | 2016-11-18 10:31 | PCM.PNMED ---
Subjective Date of Service Nov 18, 2016 Subjective pt couldn't sleep well, c/o mild pain on foot waiting for surgery today Exam Vital Signs Vital Sign - Last Date Time Temp Pulse Resp B/P Pulse Ox O2 Delivery O2 Flow Rate FiO2 11/18/16 08:27 81 20 94 Room Air 11/18/16 07:51 36.7 135/72 Intake and Output 11/17/16 11/17/16 11/18/16 Cumulative From/Thru 15:00 23:00 07:00 11/16/16 15:08 - 11/18/16 05:28 Intake Total 436 ml 500 ml 2635 ml Output Total 1100 ml 1100 ml Balance -664 ml 500 ml 1535 ml Intake Oral 436 ml 400 ml 1536 ml IV Total 100 ml 1099 ml Output Urine Total 0 ml 0 ml Ultrafiltrate 1100 ml 1100 ml # Voids 2 3 # Bowel Movements 0 0 Exam obese middle aged female, looked comfortable no JVD, MMM, no LAD RRR, nl s1, s2 no mrg CTAB, no w,c S,ND,NT,normoactive BS+ warm, no edema, pulses 2/2 Lt toe-sterilely dressed IVs and Medications Medications Reviewed: Medications were reviewed in detail Lab and Diagnostics Result Diagram: 11/18/16 0535 11/18/16 0535 Microbiology Blood cultures pending Did not obtain swab culture of the foot as it would likely not be beneficial in her workup or management proceeding forward. X-Rays, CTs and MRIs Date of Service: 11/16/16 1631 PROCEDURE: X-RAY LEFT FOOT COMPLETE, MINIMUM THREE VIEWS ([id number]) IMPRESSION: No bony abnormality is seen. Prominent atherosclerotic calcifications are seen. No radiopaque foreign body is identified. Dictated by: Joshua Taylor M.D. on 11/16/2016 at 18:03 12-lead ECG Not performed this visit, and patient denies any history of palpitations, irregular heart rhythm. Cardiac Echo Impressions See past medical history above. Assessment & Plan Juancarlos Robles is an obese 51-year-old female with history of diabetes on insulin and end-stage renal disease on hemodialysis (Mo, Fr), and significant peripheral arterial disease who presents to the ER (from urgent care) with 1 month complaint of nonhealing ulcers/lesions to her left third and fourth toes which acutely worsened yesterday with increased swelling, redness, pain to the left foot. acute, active #Necrotic, nonhealing, diabetic foot ulcerations of the third and fourth toes on the left with associated cellulitis, acute on chronic. Present on admission. -appreciate podiatry input, tentative plan for amputation today -continue vancomycin and zosyn for now, will wait for cultures, -FU BCX, MRSA swab -pain control with norco and dilaudid prn #Type 2 diabetes, uncontrolled a1c8.0 c/b Nephropathy, Diabetic Retinopathy, Neuropathy, Chronic nausea, suspected gastroparesis -controlled, continue [id number] qhs, lispro SS #ESRD on HD, pt refused HD today, questionable compliance, appreciate renal recs , avoid renal toxin, adjust meds renally, HD as scheduled. chronic, stable #Chronic macrocytic anemia, h/h stable, vitB12/folate WNL, trends h/h #CVA (07/15/14) with residual swallowing occasionally, and occasional left sided weakness, will continue diet, consider s/s eval if indicated #History of chronic headaches #CAD status post [place] with patient report of stent placement-continue cardiac meds #Chronic CHF secondary to diastolic dysfunction-continue cardiac meds #Peripheral arterial disease status post bilateral lower extremity vascular stent placement per patient report-management as above #COPD/Asthma-continue inhaled medications #Obesity BMI 39.5 #Chronic pain, not on opiates #Tobacco dependence-encourage cessation #HTN-continue antihypertensives #Hyperlipidemia-not on a statin (patient reports history of allergies/ intolerance to such) dispo: likely prolonged>3more days, high risks of AMA Full Code diet: advance as tolerate after surgery dvt ppx: HSQ q12h GI Prophylaxis: Not indicated VTE Prophylaxis: Sub-Q Heparin (Unfractionated) Resuscitation Status: CPR: Attempt Resuscitation Time spent 35min Danis Thomas MD Nov 18, 2016 10:31
--- NOTE | 2016-11-18 11:07 | PCM.PNMED ---
Subjective Date of Service Nov 18, 2016 Subjective Podiatry's note has been reviewed again the importance appreciated. 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 I would include a skin biopsy to confirm this diagnosis. Exam Vital Signs Vital Sign - Last Date Time Temp Pulse Resp B/P Pulse Ox O2 Delivery O2 Flow Rate FiO2 11/18/16 08:27 81 20 94 Room Air 11/18/16 07:51 36.7 135/72 Intake and Output 11/17/16 11/17/16 11/18/16 Cumulative From/Thru 15:00 23:00 07:00 11/16/16 15:08 - 11/18/16 05:28 Intake Total 436 ml 500 ml 2635 ml Output Total 1100 ml 1100 ml Balance -664 ml 500 ml 1535 ml Intake Oral 436 ml 400 ml 1536 ml IV Total 100 ml 1099 ml Output Urine Total 0 ml 0 ml Ultrafiltrate 1100 ml 1100 ml # Voids 2 3 # Bowel Movements 0 0 Exam Lungs are clear to auscultation. Heart is regular with mechanical with a soft systolic murmur. Abdomen soft without any tenderness rebound guarding masses or hepatosplenomegaly. Extremities do not show any evidence Lab and Diagnostics Result Diagram: 11/18/16 0535 11/18/16 0535 Microbiology Blood cultures pending Did not obtain swab culture of the foot as it would likely not be beneficial in her workup or management proceeding forward. X-Rays, CTs and MRIs Date of Service: 11/16/16 1631 PROCEDURE: X-RAY LEFT FOOT COMPLETE, MINIMUM THREE VIEWS ([id number]) IMPRESSION: No bony abnormality is seen. Prominent atherosclerotic calcifications are seen. No radiopaque foreign body is identified. Dictated by: Joshua Taylor M.D. on 11/16/2016 at 18:03 12-lead ECG Not performed this visit, and patient denies any history of palpitations, irregular heart rhythm. Cardiac Echo Impressions See past medical history above. Assessment & Plan Impression #1 end-stage renal disease dialysis dependent #2 assess with possible calciphylaxis #3 chronic noncompliance #4 diabetic nephropathy #5 hypertension with hypertensive heart disease and hypertensive nephrosclerosis Recommendations #1 over to obtain a parathyroid hormone level on her along with the vitamin D level. I would also strongly encourage a skin biopsy calciphylaxis. In the meantime I feel we should be starting her on sodium thiosulfate during her dialysis treatments. GI Prophylaxis: Not indicated VTE Prophylaxis: Sub-Q Heparin (Unfractionated) Resuscitation Status: CPR: Attempt Resuscitation Malik Eddy DO Nov 18, 2016 11:07
--- NOTE | 2016-11-18 12:14 | NUR ---
To OR Via stretcher at 12:14. Report given to Virgie, including blood glucose 87, lack of consent and pre-op antibiotics. IV saline locked.
--- NOTE | 2016-11-18 13:37 | PCM.HPANE ---
Patient Data Date of Service: Nov 18, 2016 (4855) Surgeon Admitting Provider:Roseline Maynard DO Attending Provider:Roseline Maynard DO Primary Care Physician:Nopcp Other Provider: Reason for Visit Diabetic Foot Wound Ht/WT & BMI Height (Feet): 5 Height (Inches): 6.00 Weight (Kilograms): 111.500 Body Mass Index 39.51 Allergies Coded Allergies: atenolol (Verified Adverse Reaction, Severe, PROFOUND HYPOTENSION, 11/16/16) Fxhubxs-Kaa-Pee Reductase Inhibitor (Verified Adverse Reaction, Intermediate, Muscle Pain/Weakness, 11/16/16) clopidogrel (Verified Adverse Reaction, Intermediate, Bleeding, 11/16/16) ezetimibe (Verified Adverse Reaction, Intermediate, Muscle Pain/Muscle Weakness, 11/16/16) Past Anesthesia History Anesthesia History: Denies:: Abnormal Airway, Anesthesia Reactions, Difficult Intubation, Fam Anesthesia Reaction, Fam Malignant Hypertherm, Malignant Hyperthermia Diabetes History Hx Diabetes?: Yes Type of Diabetes: Type II Glycemic Control: Insulin & Oral Medication Current Bedside Blood Glucose: 87 MRSA MRSA: No Medications Blood Thinner: Plavix Home Meds Incl Beta Sam: Yes Date Beta Sam Taken: Nov 19, 2019 Reported Medications Aspirin 325 Mg Hhkfww086 Mg PO DAILY #1 BOTTLE 11/16/16 Aspirin 325 Mg Fjcpen015-1,300 Mg PO TID PRN For Pain #1 BOTTLE 11/16/16 Sodium Polystyrene Sulfonate (Kionex)15 Gm/60 Ml Oral.susp15 Gm PO //Sat 11/16/16 Calcium Acetate (Phoslyra)667 Mg/5 Ml Rtbrghzw345 Mg PO TIDWM Doesn't remember to take often 11/16/16 Cholecalciferol (Vitamin D3) (Vitamin D3)50,000 Unit Itatgcy87,000 Unit PO WEEKLY Takes on Mondays11/16/16 Ranitidine 150 Mg Ccpfgxk321 Mg PO BID PRN acid reflux Ref 0 11/16/16 Sumatriptan Succinate (Imitrex)50 Mg Oigpyq83 Mg PO DAILY PRN Migraines 11/16/16 Metolazone 5 Mg Tablet5 Mg PO HS #1 TABLET 11/16/16 Multivitamin/Iron/Folic Acid (Cerovite Advanced Form Tab)1 Each Tablet1 Each PO DAILY 11/16/16 Furosemide 80 Mg Tab80 Mg PO HS 30 Days Ref 0 11/16/16 Lisinopril 5 Mg Tablet5 Mg PO HS #60 TABLET Ref 0 11/16/16 Albuterol HFA (Proair HFA)8.5 Gm Hfa.aer.ad2 Puffs INHALATION Q4H PRN For Shortness of Breath #1 INHALER 09/23/15 Lorazepam 0.5 Mg Tablet0.5 Mg PO TID PRN For Anxiety Ref 0 Uses mainly for insomnia 04/26/15 Amlodipine (Norvasc)5 Mg Tablet5 Mg PO HS Ref 0 04/26/15 Nitroglycerin SL 0.4 Mg Tab.subl0.4 Mg SL PRN HYPERtension 02/23/15 Albuterol/Ipratropium (Combivent Respimat Inhal [place])120 Spr/4 Gm Inhaler1 Puff IH QID #1 INH Ref 0 Not taking 02/23/15 Carvedilol 25 Mg Zqxfro49 Mg PO BIDWM 30 Days Ref 0 02/23/15 Insulin Regular, Human (HUMulin-R U100 Insulin Vial)100 Unit/1 Ml Vial3-6 Unit SUBQ TIDWM #1 VIAL Ref 0 SLIDING SCALE 11/06/14 Insulin Glargine (Lantus U100 Solostar Insulin Pen)100 Unit/1 Ml Insuln.pen30 Unit SUBQ HS #1 PENINJ Ref 0 11/06/14 Discontinued Reported Medications Aspirin Chew 81 Mg Chew81 Mg PO HS Ref 0 11/16/16 Aspirin Chew 81 Mg Chew81 Mg PO DAILY Ref 0 11/16/16 Calcium Acetate (Phoslo)667 Mg Ydvdpe702 Mg PO TIDWM 07/09/15 Multivitamin (Once Daily)1 Each Tablet1 Each PO DAILY 04/23/15 Furosemide (Lasix)40 Mg Yvzbdq37 Mg PO DAILY 30 Days Ref 0 11/06/14 Discontinued Scripts Ranitidine 150 Mg Ntrhdtl066 Mg PO BID #20 CAPSULE Ref 0 Prov:Sundar Garcia MD 03/16/16 Aspirin Chew 81 Mg Rpugxm43 Mg PO DAILY #120 you need to take one tablet daily all of your life. Prov:Gildardo Cordero PA-C 04/27/15 Clopidogrel Bisulfate (Plavix)75 Mg Uvinir08 Mg PO DAILY #90 TABLET Ref 3 Prov:Gildardo Cordero PA-C 04/27/15 History History of ENT Problems?: Yes HEENT History: Positive for:: Cataracts Glaucoma (maybe) Sinus Problem (congestion) Denies:: Abnormal Airway Difficult Intubation Dysphagia Hearing Problem Other HEENT Pertinent History: retinopathy Hx of Heart Problems?: Yes Cardiovascular History: Positive for:: Cardiac Surgery (4 stents) Chest Pain Congestive Heart Failure Edema Hypertension Denies:: Heart Murmur Irregular Heartbeat Pacemaker Thrombophlebitis Other Cardiac History: hyperlipidemia Hx of Respiratory Problem?: Yes Respiratory History: Positive for:: Asthma (HAS INHALER) COPD Dyspnea (with exertion) Emphysema Pneumonia (HX OF) Denies:: Chest Surgery Hemoptysis Tuberculosis Hx Neurologic Problems?: Yes Neurological History: Positive for:: CVA (JUNE 2014, SLIGHT RIGHT SIDED WEAKNESS, SOME SPEECH ISSUES) Dizziness Headaches Denies:: Alzheimer's Disease Dementia Parkinson's Disease Seizures Hx of GI Problems?: Yes Gastrointestinal History: Positive for:: Gastrointestinal Bleeding (ulcer related to plavix) Denies:: Diverticulitis Gastroesphageal Reflux Heartburn Hepatitis Hiatal Hernia Rectal Bleeding Other GI Pertinent History: diarrhea Hx of Problems?: Yes Genitourinary History: Positive for:: HX of Hemodialysis (3 TIMES WEEKLY-- LAST 11/13/16) Urinary Tract Infection Denies:: Kidney Stones HX of Peritoneal Dialysis: No Female Hx: Denies:: Currently Endometriosis Pelvic Inflammatory Problems with Breasts? Skin History: Denies:: History Skin Disorders? Pressure Ulcers Hx Musculoskeletal Problems?: Yes Musculoskeletal History: Positive for:: Back Injury (sciatica) Denies:: Joint Replacement Musculoskeletal Trauma Hx of Psycho/Social Problems?: Yes Psycho Social History: Positive for:: Anxiety Hx Depression Denies:: Bipolar Disorder Suicide Attempt Hx Surgeries?: Yes (tubal ligation, c section, hysterectomy) Hx Any Other Health Problems?: Yes Other History: Positive for:: Hospitalization (COFFEY,PNEUMONIA,CHF) Denies:: Cancer Endocrine Disease Thyroid Disease History Blood Transfusions: Positive for:: Accept Blood Products? Blood Transfusions Denies:: Blood Transfuse Reaction Hx Diabetes: YesBedside Blood Glucose: 87 Hx Alcohol Use: Yes (hx)Hx Substance Use: No Smoking Status: Current Every Day Smoker Have You Smoked inLast 12 mo: YesApprox How Many Cigarettes/day: up to 10 Stop/Bang Treated for Sleep Apnea?: No Do You Have a CPAP Machine?: No S-Snoring: Do You Snore Loudly: No T-Tired: feel tired, fatigued: Yes O-Obsered: Observed not breath: No P-Blood Pressure: treated: Yes B- Body Mass Index > 35 kg/m2: Yes A- Age over 50: Yes N- Neck Large Circumference: Yes G- Gender Male: No DONAVON Total Score: 5 DONAVON Risk Assessment: High Risk, =/>3 Yes Risk Assessment Category Category 1A: Patient has history of documented sleep apnea, and HAS NOT received any narcotic, sedative or anesthesia administration during this stay. Category 1B: Patient has history of documented sleep apnea, and HAS received any narcotic , sedative or anesthesia administration during this stay Category 2: Patient has SUSPECTED Obstructive Sleep Apnea, and HAS received any narcotic , sedative or anesthesia administration during this stay. Category 3: Patient has SUSPECTED Obstructive Sleep Apnea and HAS NOT received narcotic, sedative or anesthesia administration during this stay. Category 4: Outpatient in Procedural Areas with known sleep apnea or who screen positive for High Risk via the STOP/BANG questionnaire. Exam Exam Vital Signs Vital Signs Date Time Temp Pulse Resp B/P Pulse Ox O2 Delivery O2 Flow Rate FiO2 11/18/16 08:27 81 20 94 Room Air 11/18/16 07:51 36.7 75 18 135/72 94 Room Air General Appearance: Alert, Oriented X3, Cooperative HEENT/AIRWAY: MP 3, Mouth Opening (<3FB) Lungs: Clear to Auscultation Heart: Exam Unremarkable Meds/Labs/Diagnostics Admission Meds Current Medications Vancomycin HCl/ Sodium Chloride (Vancocin Inj/ Normal Saline) 100 ml @ 66.667 mls/ hr ONCE ONCE IV Last administered on 11/17/16t 16:04; Start 11/17/16 at 15: 00; Stop 11/17/16 at 16:29; Status DC Bedside Blood Glucose: 87 Labs Test 11/16/16 16:57 11/17/16 05:45 11/17/16 10:30 11/18/16 05:35 Hemoglobin A1c 8.0% (4.8-5.6) Lactic Acid Level 1.4mmol/L (0.4-2.0) C-Reactive Protein 13.6mg/dL (0.0-0.5) Vitamin B12 Level 993pg/mL (211-946) Folate 17.9ng/mL (>3.0) Hold Zavala Top Tube Received (Received) Erythrocyte Sedimentation Rate > 140mm/hr (0-40) Procalcitonin 0.23ng/mL (0.00-0.08) Vancomycin Level Trough 19.9mcg/mL Urine Color Yellow (YELLOW) Urine Appearance Clear (CLEAR,HAZY) Urine pH 7.5 (5.0-8.0) Urine Specific [place] 1.015 (1.003-1.035) Urine Protein 100mg/dL (NEG,TRACE) Urine Glucose (UA) Negativemg/dL (NEGATIVE) Urine Ketones Negativemg/dL (NEGATIVE) Urine Occult Blood Trace (NEGATIVE) Urine Nitrite Negative (NEGATIVE) Urine Bilirubin Negative (NEGATIVE) Urine Urobilinogen Normalmg/dL (NORMAL) Urine Leukocyte Esterase Negative (NEGATIVE) Urine RBC 0-2/hpf (0-2) Urine WBC 0-5/hpf (0-5) Urine Epithelial Cells Occasional/hpf (NONE-MOD) Urine Crystals None seen (NONE SEEN) Urine Bacteria None/hpf (NONE-FEW) Urine Hyaline Casts None/lpf (NONE) Urine Granular Casts None seen (NONE SEEN) Urine Waxy Casts None seen (NONE SEEN) Urine Red Blood Cell Casts None seen (NONE SEEN) Urine White Blood Cell Casts None seen (NONE SEEN) Urine Mucus None seen (None Seen) Urine Trichomonas None seen (NONE SEEN) Urine Yeast None (NONE SEEN) Urinalysis Comment None Urine Culture Reflexed Not indicated White Blood Count 11.6th/mm3 (3.8-10.1) Red Blood Count 2.60mil/mm3 (3.90-5.20) Hemoglobin 8.0g/dL (12.0-15.6) Hematocrit 27.1% (35.0-46.0) Mean Corpuscular Volume 104.2fL (81-100) Mean Corpuscular Hemoglobin 30.8pg (27.0-35.0) Mean Corpuscular Hemoglobin Concent 29.5% (32.0-37.0) Red Cell Distribution Width 14.9% (12.3-15.4) Platelet Count 343bil/L (150-400) Neutrophils (%) (Auto) 80.4% (40-74) Lymphocytes (%) (Auto) 7.6% (14-46) Monocytes (%) (Auto) 9.5% (4-12) Eosinophils (%) (Auto) 2.1% (0-5) Basophils (%) (Auto) 0.1% (0-3) Sodium Level 140mEq/L (134-144) Potassium Level 4.3mEq/L (3.5-5.2) Chloride Level 96mEq/L (97-108) Carbon Dioxide Level 27mmol/L (18-29) Blood Urea Nitrogen 34mg/dL (6-24) Creatinine 5.06mg/dL (0.57-1.00) Estimat Glomerular Filtration Rate 13mL/min (>59) Glucose Level 102mg/dL (60-99) Calcium Level 8.2mg/dL (8.5-10.1) Phosphorus Level 5.6mg/dL (2.5-4.9) Magnesium Level 1.9mg/dL (1.6-2.6) Total Bilirubin 0.2mg/dL (0.0-1.2) Aspartate Amino Transf (AST/SGOT) 9U/L (0-50) Alanine Aminotransferase (ALT/SGPT) 5U/L (0-32) Alkaline Phosphatase 62U/L (25-150) Total Protein 6.9g/dL (6.4-8.4) Albumin 3.1g/dL (3.4-5.0) Plan Impression Patient chart reviewed, patient interviewed and anesthestic plan with risks, benefits, and alternatives discussed, and informed consent obtained. NPO Status: 0000 18 NOVEMBER 2016 ASA Physical Status: ASA4 Life Threatening Anesthetic Plan: MAC Bene/Risks/Altern/Consents: Yes HP Complete Prior to Induction: Yes Sebas Cifuentes MD Nov 18, 2016 13:37
[2016-11-18] MEDS ORDERED: Lactated Ringer's 1,000 ML IV SCH (13:38)
[2016-11-18] MEDS ORDERED: Lactated Ringer's 500 ML IV PRN (13:38)
[2016-11-18] MEDS ORDERED: MetoCLOpramide 5 mg/mL 2 mL Inj IVPUSH PRN (13:40)
[2016-11-18] MEDS ORDERED: HYDROmorphone 1 mg/mL Inj IVPUSH PRN (13:40)
[2016-11-18] MEDS ORDERED: Ondansetron 2 mg/mL 2 mL Inj IVPUSH PRN (13:40)
[2016-11-18] MEDS ORDERED: EPHEDrine Sulfate 50 mg/mL Inj IVPUSH PRN (13:40)
[2016-11-18] MEDS ORDERED: fentaNYL-PF 50 mCg/mL 2 mL Inj IVPUSH PRN (13:40)
[2016-11-18] MEDS ORDERED: Dexamethasone 4 mg/mL Inj IVPUSH PRN (13:40)
[2016-11-18] MEDS ORDERED: 0.9% Sodium Chloride 1,000 ML IV ONE (13:44)
[2016-11-18] MEDS ORDERED: Lidocaine PF 1% 30 mL Inj NERVEBLOCK ONE (13:52)
--- NOTE | 2016-11-18 14:10 | NUR ---
OFF UNIT TO OR Addendum: 11/18/16 at 1410 by JANEEN CARDONA CNA Amended: Links added.
--- NOTE | 2016-11-18 14:43 | PCM.PODPO ---
Podiatry Operative Report Date of Service: Nov 18, 2016 (2258) Date of Service Nov 18, 2016 Pre Operative Diagnosis Gangrene of toes 3 and 4, left foot Gangrenous ulceration in the fourth webspace, left foot Post Operative Diagnosis Gangrene of toes 3 and 4, left foot Gangrenous ulceration in the fourth webspace, left foot Procedure Amputation of the left third and left fourth toes at the level of the interphalangeal joints. Excision of gangrenous ulceration left fourth webspace. Surgeon Surgeon: Radha Pardo DPM Assistants: None Indication for Procedure Soft tissue necrosis to bone, infection, cellulitis. Findings Each level of amputation appeared to be viable with active blood flow encountered. No arterial bleeds encountered. No cautery necessary. No tourniquet needed. Details of Procedure The patient was identified in the preoperative holding area and brought back to the operating room. She was placed on the operating table in supine position. The timeout protocol was completed, the patient's sites of surgery and intended procedures confirmed. Upon initiation of IV sedation, the left foot was prepped and draped in the usual aseptic manner. Using a #10 scalpel, the third digit was incised circumferentially around the gangrenous area. A #15 scalpel was used to disarticulate the toe at the interphalangeal joint. A rongeur was used to remove the phalangeal head. The same sequence of procedure was repeated for the fourth digit. The webspace ulceration between fourth and fifth digits was excised through skin and subcutaneous tissue with a 2 mm margin on each side of the ulceration. The remaining wounds were irrigated with normal saline. The total wound in the fourth webspace was 1 cm x 0.5 cm and flush with the surrounding skin, gangrenous appearing. After excision, the remaining ulceration measured 1.2 x 0.7 cm in size and 1 cm in depth. The amputation flaps were remodeled to fit skin edges together without tension. A 3-0 Prolene suture was used to approximate skin edges without tension. Dressing consisted of Rodriguez silk, 4 x 4 gauze, Kerlix, and lightly applied Coban. The patient was weaned off of IV sedation and taken back to her inpatient room in stable condition with vital signs stable and vascular status to the left foot series intact at the level of the amputations. Grafts, Implants: None Complications There were no periprocedural complications identified. Condition Stable Anesthetic Administered: MAC Drains: None Catheters: None Output, Estimated Blood Loss: 5 (ml) Blood Admin during surgery: No Surgical Cast or Splint: None Surgical Specimen Removed: Yes Specimen sent to Pathology: Yes Surgical Specimen description: Amputated digits Post Operative Plan Postoperatively, the patient will be able to place weight on her operative foot for minimal ambulation around her inpatient room. I would expect to remove the dressing tomorrow and replace it with a dry one, which then should stay in place for 5-7 days, if possible. If cellulitis resolves by Sunday, she can be discharged, if cleared medically. She will need to follow up with me in my office no later than Sunday, November 22. At the time of discharge, oral antibiotics outpatient should consist of Augmentin for 1 week. Vancomycin can now be discontinued. Radha Pardo DPM Nov 18, 2016 14:43
--- NOTE | 2016-11-18 15:24 | NUR ---
RAYMOND signed. Jennifer Gilbert [employer]
--- NOTE | 2016-11-18 16:11 | NUR ---
Social Work- Initial Assessment Data: Pt is a 51 year old female admitted 11/16/16 for diabetic foot wound per H&P. Pt's insurance is [facility] and [facility] Supplement. Pt does not have a PCP. Pt states she is looking for one. TRI met with pt and at bedside to discuss discharge planning, SW role explained. Pt was alert and oriented x3. Pt resides in a [address] on [place] with her where she receives assistance with her ADLs. Pt uses a walker or wheelchair at base, does not drive. Pt has no LTC insurance or VA benefits. Pt has no HH or SNF history. SW spoke with patient about DPOA, encouraged pt to bring in this paperwork. SW left phone number and plan on whiteboard. Pt to discharge home with to transport via POV. No anticipated discharge needs. SW will continue to follow. Assessment: Pt who is independent at baseline. Plan: Pt to discharge home with to transport via POV. No anticipated discharge needs. SW will continue to follow. Jennifer Winter MSW Addendum: 11/18/16 at 1615 by JOCELIN WINTER SS Amended: Links added.
[2016-11-18] MEDS: Insulin GLARgine 100 Unit/mL Syringe SUBQ SCH (21:49)
[2016-11-19] MEDS: HYDROcodone-APAP 5-325 mg Tablet PO PRN ×4 (03:01→21:15)
--- NOTE | 2016-11-19 05:51 | NUR ---
Pain/toe amputee Pt continues to report pain a 10/10, states it never goes below an 8/10. Pt is compliant with using walking shoe and stated she was going to wear it to bed so she would not bump her newly amputated toes. Happy that she could eat dinner tonight but was non compliant with carb control and diabetic diet
[2016-11-19 06:02] LABS: BASOPHILS % (AUTO) 0.2 % (0-3); EOSINOPHILS % (AUTO) 2.6 % (0-5); MONOCYTES % (AUTO) 10.8 % (4-12); Mean Corpuscular Hemoglobin 30.8 pg (27.0-35.0); Mean Corpuscular Volume 104.6 fL (81-100); NEUTROPHILS % (AUTO) 74.5 % (40-74); Platelet Count 312 bil/L (150-400)
[2016-11-19 06:24] LABS: Phosphorus 7.2 mg/dL (2.5-4.9)
[2016-11-19 07:23] VITALS: BP 103/62; PULSE 61; RESP 20; O2SAT 93
[2016-11-19] MEDS: Heparin 5,000 Unit/mL Inj SUBQ SCH ×2 (07:57→21:14)
[2016-11-19] MEDS: Piperacillin-Tazo 3.375 Gm Inj 3.375 GM in Dextrose 5% Minibag Plus 50 ML IV SCH ×2 (07:59→21:14)
[2016-11-19] MEDS: Insulin LISPRO 300 Unit/3 mL Inj SUBQ SCH ×4 (08:00→21:47)
[2016-11-19] MEDS: Vancomycin Dose per Pharmacist XX SCH (08:02)
[2016-11-19] MEDS: Albuterol-Ipratropium 3 mL Inhalation Solution NEB SCH ×4 (08:17→19:37)
[2016-11-19 08:19] VITALS: PULSE 62; RESP 16; O2SAT 93
--- NOTE | 2016-11-19 10:58 | PCM.PNMED ---
Subjective Date of Service Nov 19, 2016 Subjective Patient offers no new complaints today other than some pain in her left foot. I had a long and markel discussion with the patient about the potential diagnosis of calciphylaxis and her foot lesion. She is extremely high risk for this being female, diabetic, poorly compliant with dialysis, hypophosphatemic, and marked elevation in her parathyroid hormone. No discussion I explained to the treatment of this consisted of establishing a diagnosis by a skin biopsy first and if this is positive then increasing frequency and duration of dialysis , sodium thiosulfate, and also possible hyperbaric oxygen chamber treatments. I sent an email to Dr. Pardo with a copy to her courtroom reporter explaining my concerns. It is my hope that we can get a biopsy on her foot tomorrow. Exam Vital Signs Vital Sign - Last Date Time Temp Pulse Resp B/P Pulse Ox O2 Delivery O2 Flow Rate FiO2 11/19/16 08:19 62 16 93 Room Air 11/19/16 07:23 36.2 103/62 Intake and Output 11/18/16 11/18/16 11/19/16 Cumulative From/Thru 15:00 23:00 07:00 11/16/16 15:08 - 11/18/16 18:35 Intake Total 50 ml 290 ml 2975 ml Output Total 5 ml 100 ml 1205 ml Balance 45 ml 190 ml 1770 ml Intake Oral 220 ml 1756 ml IV Total 50 ml 70 ml 1219 ml Output Urine Total 100 ml 100 ml Ultrafiltrate 1100 ml Estimated Blood Loss 5 ml 5 ml # Voids 3 # Bowel Movements 0 Exam Her complexion remains with pale sclera. She also has a uremic on her breath. Neck is supple without adenopathy thyromegaly or jugular venous distention. Lungs are clear to auscultation. Heart is regular and rhythmical with a soft systolic murmur. Abdomen is soft without any tenderness or rebound guarding masses or hepatosplenomegaly. Extremities do not show any edema. Her left foot is fully dressed and this was not explored. I did not appreciate any skin erythema or lymphangitis on her left distal leg. Lab and Diagnostics Result Diagram: 11/19/16 0532 11/19/16 0532 Microbiology Blood cultures pending Did not obtain swab culture of the foot as it would likely not be beneficial in her workup or management proceeding forward. X-Rays, CTs and MRIs Date of Service: 11/16/16 7851 PROCEDURE: X-RAY LEFT FOOT COMPLETE, MINIMUM THREE VIEWS ([id number]) IMPRESSION: No bony abnormality is seen. Prominent atherosclerotic calcifications are seen. No radiopaque foreign body is identified. Dictated by: Joshua Taylor M.D. on 11/16/2016 at 18:03 12-lead ECG Not performed this visit, and patient denies any history of palpitations, irregular heart rhythm. Cardiac Echo Impressions See past medical history above. Assessment & Plan Impression #1 end-stage renal disease dialysis dependent #2 assess with possible calciphylaxis #3 chronic noncompliance #4 diabetic nephropathy #5 hypertension with hypertensive heart disease and hypertensive nephrosclerosis Recommendations #1 is for dialysis appointment tomorrow and I will other doses sodium thiosulfate pending her skin biopsy. GI Prophylaxis: Not indicated VTE Prophylaxis: Sub-Q Heparin (Unfractionated) Resuscitation Status: CPR: Attempt Resuscitation Malik Eddy DO Nov 19, 2016 10:58
--- NOTE | 2016-11-19 12:28 | PCM.PNMED ---
Subjective Date of Service Nov 19, 2016 Subjective pt underwent amputation of two toes, tolerated well, denied pain this AM, more pleasant vancomycin d/lewis per plan to d/c possibly tomorrow with oral abx Exam Vital Signs Vital Sign - Last Date Time Temp Pulse Resp B/P Pulse Ox O2 Delivery O2 Flow Rate FiO2 11/19/16 08:19 62 16 93 Room Air 11/19/16 07:23 36.2 103/62 Intake and Output 11/18/16 11/18/16 11/19/16 Cumulative From/Thru 15:00 23:00 07:00 11/16/16 15:08 - 11/18/16 18:35 Intake Total 50 ml 290 ml 2975 ml Output Total 5 ml 100 ml 1205 ml Balance 45 ml 190 ml 1770 ml Intake Oral 220 ml 1756 ml IV Total 50 ml 70 ml 1219 ml Output Urine Total 100 ml 100 ml Ultrafiltrate 1100 ml Estimated Blood Loss 5 ml 5 ml # Voids 3 # Bowel Movements 0 Exam obese middle aged female, looked comfortable no JVD, MMM, no LAD RRR, nl s1, s2 no mrg CTAB, no w,c S,ND,NT,normoactive BS+ warm, no edema, pulses 2/2 Lt toe-sterilely dressed IVs and Medications Medications Reviewed: Medications were reviewed in detail Lab and Diagnostics Result Diagram: 11/19/16 0532 11/19/16 0532 Microbiology Blood cultures pending Did not obtain swab culture of the foot as it would likely not be beneficial in her workup or management proceeding forward. X-Rays, CTs and MRIs Date of Service: 11/16/16 1631 PROCEDURE: X-RAY LEFT FOOT COMPLETE, MINIMUM THREE VIEWS ([id number]) IMPRESSION: No bony abnormality is seen. Prominent atherosclerotic calcifications are seen. No radiopaque foreign body is identified. Dictated by: Joshua Taylor M.D. on 11/16/2016 at 18:03 12-lead ECG Not performed this visit, and patient denies any history of palpitations, irregular heart rhythm. Cardiac Echo Impressions See past medical history above. Assessment & Plan Juancarlos Robles is an obese 51-year-old female with history of diabetes on insulin and end-stage renal disease on hemodialysis (Mo, Fr), and significant peripheral arterial disease who presents to the ER (from urgent care) with 1 month complaint of nonhealing ulcers/lesions to her left third and fourth toes which acutely worsened yesterday with increased swelling, redness, pain to the left foot. acute, active #Necrotic, nonhealing, diabetic foot ulcerations of the third and fourth toes on the left with associated cellulitis, acute on chronic. Present on admission.s/p amputations of Toes on 11/18. -appreciate podiatry input, -started vancomycin and zosyn on adm, d/lewis vanc 11/19, plan to d/c with Augmentin per -FU BCX, MRSA swab neg -pain control with norco and dilaudid prn #Type 2 diabetes, uncontrolled a1c8.0 c/b Nephropathy, Diabetic Retinopathy, Neuropathy, Chronic nausea, suspected gastroparesis -controlled, continue qhs, lispro SS #ESRD on HD, pt refused HD today, questionable compliance, appreciate renal recs , avoid renal toxin, adjust meds renally, HD as scheduled. chronic, stable #Chronic macrocytic anemia, h/h stable, vitB12/folate WNL, trends h/h #CVA (07/15/14) with residual swallowing occasionally, and occasional left sided weakness, will continue diet, consider s/s eval if indicated #History of chronic headaches #CAD status post SC with patient report of stent placement-continue cardiac meds #Chronic CHF secondary to diastolic dysfunction-continue cardiac meds #Peripheral arterial disease status post bilateral lower extremity vascular stent placement per patient report-management as above #COPD/Asthma-continue inhaled medications #Obesity BMI 39.5 #Chronic pain, not on opiates #Tobacco dependence-encourage cessation #HTN-continue antihypertensives #Hyperlipidemia-not on a statin (patient reports history of allergies/ intolerance to such) dispo: possibly tomorrow home, Full Code diet: advance as tolerate after surgery dvt ppx: HSQ q12h GI Prophylaxis: Not indicated VTE Prophylaxis: Sub-Q Heparin (Unfractionated) Resuscitation Status: CPR: Attempt Resuscitation Time spent 35min Danis Thomas MD Nov 19, 2016 12:28
[2016-11-19] MEDS ORDERED: Sodium Thiosulfate 25% 12.5 Gm/50 mL Inj IV ONE (12:50)
--- NOTE | 2016-11-19 14:22 | NUR ---
Social Work- Readiness for Discharge Data: EMR reviewed. Pt is on day 3 of hospitalization for diabetic foot wound per H&P. Pt is POD 2. Pt is not medically stable, anticipate 1-2 more days. Pt anticipated to discharge home on oral abx. Pt to discharge home with to transport via POV. No anticipated discharge needs. SW will continue to follow. Assessment: Pt who is independent at baseline. Plan: Pt to discharge home with to transport via POV. No anticipated discharge needs. SW will continue to follow. TG Royal
[2016-11-19 14:58] VITALS: BP 128/63; PULSE 65; RESP 20; O2SAT 93
--- NOTE | 2016-11-19 15:39 | PCM.PNPOD ---
Subjective Date of Service: Nov 19, 2016 Date of Service: Nov 19, 2016 Visit Information: Reason for Visit Diabetic Foot Wound Surgery/Surgery Date Post-Op Day # 1 Date of Admission: Nov 16, 2016 at 19:41 Hospital Day # Subjective: 51 year old female with history of PAD, DM, ESRD evaluated at bedside in [facility]. Complains of pain to her left foot. Day 1 status post amputation of the left 3rd and 4th toe preformed by Dr. Pardo. No new complaints overnight. Postop General: No Complaints Gastrointestinal: Good Appetite Objective Vital Sign - Last Date Time Temp Pulse Resp B/P Pulse Ox O2 Delivery O2 Flow Rate FiO2 11/19/16 14:58 36.8 65 20 128/63 93 Room Air Intake and Output 11/18/16 11/18/16 11/19/16 Cumulative From/Thru 15:00 23:00 07:00 11/16/16 15:08 - 11/18/16 18:35 Intake Total 50 ml 290 ml 2975 ml Output Total 5 ml 100 ml 1205 ml Balance 45 ml 190 ml 1770 ml Intake Oral 220 ml 1756 ml IV Total 50 ml 70 ml 1219 ml Output Urine Total 100 ml 100 ml Ultrafiltrate 1100 ml Estimated Blood Loss 5 ml 5 ml # Voids 3 # Bowel Movements 0 Result Diagram: 11/19/16 0532 11/19/16 0532 Lab Test 11/16/16 16:57 11/17/16 05:45 11/17/16 10:30 11/19/16 05:32 Hemoglobin A1c 8.0% (4.8-5.6) Lactic Acid Level 1.4mmol/L (0.4-2.0) C-Reactive Protein 13.6mg/dL (0.0-0.5) Vitamin B12 Level 993pg/mL (211-946) Folate 17.9ng/mL (>3.0) Hold Zavala Top Tube Received (Received) Erythrocyte Sedimentation Rate > 140mm/hr (0-40) Procalcitonin 0.23ng/mL (0.00-0.08) Vancomycin Level Trough 19.9mcg/mL Urine Color Yellow (YELLOW) Urine Appearance Clear (CLEAR,HAZY) Urine pH 7.5 (5.0-8.0) Urine Specific [place] 1.015 (1.003-1.035) Urine Protein 100mg/dL (NEG,TRACE) Urine Glucose (UA) Negativemg/dL (NEGATIVE) Urine Ketones Negativemg/dL (NEGATIVE) Urine Occult Blood Trace (NEGATIVE) Urine Nitrite Negative (NEGATIVE) Urine Bilirubin Negative (NEGATIVE) Urine Urobilinogen Normalmg/dL (NORMAL) Urine Leukocyte Esterase Negative (NEGATIVE) Urine RBC 0-2/hpf (0-2) Urine WBC 0-5/hpf (0-5) Urine Epithelial Cells Occasional/hpf (NONE-MOD) Urine Crystals None seen (NONE SEEN) Urine Bacteria None/hpf (NONE-FEW) Urine Hyaline Casts None/lpf (NONE) Urine Granular Casts None seen (NONE SEEN) Urine Waxy Casts None seen (NONE SEEN) Urine Red Blood Cell Casts None seen (NONE SEEN) Urine White Blood Cell Casts None seen (NONE SEEN) Urine Mucus None seen (None Seen) Urine Trichomonas None seen (NONE SEEN) Urine Yeast None (NONE SEEN) Urinalysis Comment None Urine Culture Reflexed Not indicated White Blood Count 9.0th/mm3 (3.8-10.1) Red Blood Count 2.40mil/mm3 (3.90-5.20) Hemoglobin 7.4g/dL (12.0-15.6) Hematocrit 25.1% (35.0-46.0) Mean Corpuscular Volume 104.6fL (81-100) Mean Corpuscular Hemoglobin 30.8pg (27.0-35.0) Mean Corpuscular Hemoglobin Concent 29.5% (32.0-37.0) Red Cell Distribution Width 15.1% (12.3-15.4) Platelet Count 312bil/L (150-400) Neutrophils (%) (Auto) 74.5% (40-74) Lymphocytes (%) (Auto) 11.8% (14-46) Monocytes (%) (Auto) 10.8% (4-12) Eosinophils (%) (Auto) 2.6% (0-5) Basophils (%) (Auto) 0.2% (0-3) Sodium Level 141mEq/L (134-144) Potassium Level 4.3mEq/L (3.5-5.2) Chloride Level 98mEq/L (97-108) Carbon Dioxide Level 26mmol/L (18-29) Blood Urea Nitrogen 41mg/dL (6-24) Creatinine 6.10mg/dL (0.57-1.00) Estimat Glomerular Filtration Rate 10mL/min (>59) Glucose Level 77mg/dL (60-99) Calcium Level 7.9mg/dL (8.5-10.1) Phosphorus Level 7.2mg/dL (2.5-4.9) Magnesium Level 2.0mg/dL (1.6-2.6) Total Bilirubin 0.2mg/dL (0.0-1.2) Aspartate Amino Transf (AST/SGOT) 8U/L (0-50) Alanine Aminotransferase (ALT/SGPT) 5U/L (0-32) Alkaline Phosphatase 60U/L (25-150) Total Protein 6.7g/dL (6.4-8.4) Albumin 3.0g/dL (3.4-5.0) Parathyroid Hormone (Intact) 704pg/mL (15-65) Exam General: Alert, Oriented X3, Mild Distress (due to generalized pain.) Lungs: Clear to Auscultation Lower Extremities: Left: Edema localized (lower extremity, especially forefoot ) Extremity warm (left forefoot with erythema) Lower Extremity Pulses: Palpable: Left Dorsalis Pedis Left Posterior Tibal Doppler: Right Dorsalis Pedis Right Posterior Tibal Podiatry WOUND : Wound Location/Description left 3rd and fourth toe amputation incisions are well coapted with all sutures intact and inplace. the plantar aspect of the third toe displays prolonged capillary refill time of approximately 5 sec, darkening of the skin surrounding the 4th the incision. no surrounding erythema, no evidence of abscess or continued infection. Surgical Cast or Splint: None Assessment & Plan Impression stable day 1 status post left 3rd and fourth toe amputation with mild ischemic necrosis of wound edges. Problems: (1) Gangrene of toe Plan: stable status post amputation of the left third and fourth toe. no signs of continued infection. dressing applied consisting of adaptic, dry sterile gauze and kerlix. Continue IV antibiotics. Dr. Pardo will re-evaluate tomorrow, patient may require additional return to the OR if wound edges continue to worsen Status: Acute ICD Code: I96 VTE Prophylaxis: Sub-Q Heparin (Unfractionated) Guy Rasmussen DPM Nov 19, 2016 15:39
--- NOTE | 2016-11-19 18:36 | NUR ---
Shift Pt had dressing to left foot changed by podiatry today. Pt was very anxious this morning and demanding of staff. This RN asked patient if something else was going on as she seems to be very demanding to this RN today. Pt then began getting tearful and saying she does not need any of "your psychological babble talk" Needless to say pt was much more pleasant and less demanding to this RN after that.
[2016-11-19 19:37] VITALS: PULSE 62; RESP 16; O2SAT 98
[2016-11-19] MEDS ORDERED: Insulin GLARgine 100 Unit/mL Syringe SUBQ SCH (21:00)
[2016-11-19 21:05] VITALS: BP 123/77; PULSE 63; RESP 20; O2SAT 94
--- NOTE | 2016-11-20 02:42 | NUR ---
Pain/activity Pt continues to report pain at 10/10 to BL shoulders and foot. Requesting vicodin at 6hr intervals, does not appear to be in distress. States her "pain never goes below 8/10." Pt compliant with using walking shoe and is wearing to bed. Ambulating to BR ad states she "has too much pain to go any further." Pt received new bed this shift due to mattress having large dip in center of mattress and causing pain to glutes. Pt was in a very good mood this shift and cooperative.
[2016-11-20] MEDS: HYDROcodone-APAP 5-325 mg Tablet PO PRN ×2 (03:17→08:40)
[2016-11-20] MEDS ORDERED: Vancomycin Serum Trough XX ONE (05:00)
[2016-11-20 06:41] LABS: BASOPHILS % (AUTO) 0.4 % (0-3); EOSINOPHILS % (AUTO) 2.7 % (0-5); MONOCYTES % (AUTO) 9.7 % (4-12); Mean Corpuscular Hemoglobin 30.5 pg (27.0-35.0); Mean Corpuscular Volume 102.3 fL (81-100); NEUTROPHILS % (AUTO) 77.2 % (40-74); Platelet Count 358 bil/L (150-400)
[2016-11-20 06:48] LABS: Magnesium 2.1 mg/dL (1.6-2.6); Phosphorus 7.8 mg/dL (2.5-4.9)
[2016-11-20 06:54] VITALS: BP 128/72; PULSE 68; RESP 20; O2SAT 94
[2016-11-20] MEDS: Albuterol-Ipratropium 3 mL Inhalation Solution NEB SCH ×2 (07:00→11:00)
[2016-11-20 07:37] VITALS: PULSE 63; RESP 16; O2SAT 84
[2016-11-20] MEDS: Insulin LISPRO 300 Unit/3 mL Inj SUBQ SCH (08:00)
[2016-11-20] MEDS: Heparin 5,000 Unit/mL Inj SUBQ SCH (08:12)
--- NOTE | 2016-11-20 09:03 | PCM.PNPOD ---
Subjective Date of Service: Nov 20, 2016 Visit Information: Reason for Visit Diabetic Foot Wound Surgery/Surgery Date 11/18/16 Post-Op Day # 2 Date of Admission: Nov 16, 2016 at 19:41 Subjective: Patient seen at bedside, still quite sleepy, but cooperative. Her foot pain is currently controlled, but she is not getting any rest in the hospital. Gastrointestinal: Good Appetite Pain Management: PO Objective Vital Sign - Last Date Time Temp Pulse Resp B/P Pulse Ox O2 Delivery O2 Flow Rate FiO2 11/20/16 08:19 Supplement Oxygen 11/20/16 07:37 63 16 84 11/20/16 06:54 36.4 128/72 Intake and Output 11/19/16 11/19/16 11/20/16 Cumulative From/Thru 15:00 23:00 07:00 11/16/16 15:08 - 11/20/16 06:54 Intake Total 600 ml 912 ml 535 ml 5022 ml Output Total 0 ml 0 ml 0 ml 1205 ml Balance 600 ml 912 ml 535 ml 3817 ml Intake Oral 600 ml 912 ml 475 ml 3743 ml IV Total 60 ml 1279 ml Output Urine Total 0 ml 0 ml 0 ml 100 ml Ultrafiltrate 1100 ml Estimated Blood Loss 5 ml # Voids 3 # Bowel Movements 0 0 0 0 Result Diagram: 11/20/16 0540 11/20/16 0540 Lab Test 11/16/16 16:57 11/17/16 05:45 11/17/16 10:30 11/19/16 05:32 Hemoglobin A1c 8.0% (4.8-5.6) Lactic Acid Level 1.4mmol/L (0.4-2.0) C-Reactive Protein 13.6mg/dL (0.0-0.5) Vitamin B12 Level 993pg/mL (211-946) Folate 17.9ng/mL (>3.0) Hold Zavala Top Tube Received (Received) Erythrocyte Sedimentation Rate > 140mm/hr (0-40) Procalcitonin 0.23ng/mL (0.00-0.08) Vancomycin Level Trough 19.9mcg/mL Urine Color Yellow (YELLOW) Urine Appearance Clear (CLEAR,HAZY) Urine pH 7.5 (5.0-8.0) Urine Specific [place] 1.015 (1.003-1.035) Urine Protein 100mg/dL (NEG,TRACE) Urine Glucose (UA) Negativemg/dL (NEGATIVE) Urine Ketones Negativemg/dL (NEGATIVE) Urine Occult Blood Trace (NEGATIVE) Urine Nitrite Negative (NEGATIVE) Urine Bilirubin Negative (NEGATIVE) Urine Urobilinogen Normalmg/dL (NORMAL) Urine Leukocyte Esterase Negative (NEGATIVE) Urine RBC 0-2/hpf (0-2) Urine WBC 0-5/hpf (0-5) Urine Epithelial Cells Occasional/hpf (NONE-MOD) Urine Crystals None seen (NONE SEEN) Urine Bacteria None/hpf (NONE-FEW) Urine Hyaline Casts None/lpf (NONE) Urine Granular Casts None seen (NONE SEEN) Urine Waxy Casts None seen (NONE SEEN) Urine Red Blood Cell Casts None seen (NONE SEEN) Urine White Blood Cell Casts None seen (NONE SEEN) Urine Mucus None seen (None Seen) Urine Trichomonas None seen (NONE SEEN) Urine Yeast None (NONE SEEN) Urinalysis Comment None Urine Culture Reflexed Not indicated Parathyroid Hormone (Intact) 704pg/mL (15-65) Test 11/20/16 05:40 White Blood Count 10.4th/mm3 (3.8-10.1) Red Blood Count 2.62mil/mm3 (3.90-5.20) Hemoglobin 8.0g/dL (12.0-15.6) Hematocrit 26.8% (35.0-46.0) Mean Corpuscular Volume 102.3fL (81-100) Mean Corpuscular Hemoglobin 30.5pg (27.0-35.0) Mean Corpuscular Hemoglobin Concent 29.9% (32.0-37.0) Red Cell Distribution Width 15.0% (12.3-15.4) Platelet Count 358bil/L (150-400) Neutrophils (%) (Auto) 77.2% (40-74) Lymphocytes (%) (Auto) 9.7% (14-46) Monocytes (%) (Auto) 9.7% (4-12) Eosinophils (%) (Auto) 2.7% (0-5) Basophils (%) (Auto) 0.4% (0-3) Sodium Level 140mEq/L (134-144) Potassium Level 5.1mEq/L (3.5-5.2) Chloride Level 98mEq/L (97-108) Carbon Dioxide Level 21mmol/L (18-29) Blood Urea Nitrogen 47mg/dL (6-24) Creatinine 6.52mg/dL (0.57-1.00) Estimat Glomerular Filtration Rate 10mL/min (>59) Glucose Level 115mg/dL (60-99) Calcium Level 7.7mg/dL (8.5-10.1) Phosphorus Level 7.8mg/dL (2.5-4.9) Magnesium Level 2.1mg/dL (1.6-2.6) Total Bilirubin 0.2mg/dL (0.0-1.2) Aspartate Amino Transf (AST/SGOT) 8U/L (0-50) Alanine Aminotransferase (ALT/SGPT) 6U/L (0-32) Alkaline Phosphatase 57U/L (25-150) Total Protein 6.1g/dL (6.4-8.4) Albumin 3.1g/dL (3.4-5.0) Exam General: Alert, Oriented X3, Cooperative, Mild Distress (due to generalized pain.) Lungs: Clear to Auscultation Lower Extremities: Left: Edema localized (much improved) Extremity warm (improved erythema) Lower Extremity Pulses: Palpable: Left Dorsalis Pedis Left Posterior Tibal Doppler: Right Dorsalis Pedis Right Posterior Tibal Surgical Cast or Splint: None Assessment & Plan Problems: (1) Gangrene of toe Plan: Mild dusky changes at the tips of the amputation stumps. Demarcation will likely take 5-7 days, which I can monitor outpatient. If patient is discharged today, I recommend PO Augmentin for one week and we will reassess, as long as she is medically ready after dialysis. Postop office visit is set for 4pm on Sunday11/22/2016 at [facility], Marielos Chatman. I will continue to re-evaluate daily, if she remains in the hospital. Status: Acute ICD Code: I96 VTE Prophylaxis: Sub-Q Heparin (Unfractionated) Radha Pardo DPM Nov 20, 2016 09:03
[2016-11-20] MEDS ORDERED: HYDR-4003 PO (09:08)
[2016-11-20] MEDS ORDERED: AMOX-366 PO (09:08)
--- NOTE | 2016-11-20 09:12 | PCM.DIMED ---
Discharge Instructions Date of Service Nov 20, 2016 Dates of Hospitalization Nov 16, 2016 at 19:41 Discharge Diagnosis Discharge Diagnosis Necrotic diabetic foot ulcer s/p amputation Medication Instructions take Percocet every 4-6hrs as needed for pain take Augmentin twice a day, antibiotics for one week. Diet Low fat, Low Sodium, Heart Healthy, Diabetic Activity No restrictions Call your provider Other Patient Instructions You were hospitalized with necrotic toe ulcers, underwent amputation by Podiatry. Please note that strict blood sugar control is very important in healing process Follow-up plan Please follow up with new doctor in Residency clinic in 1-2weeks Please see in the clinic scheduled on Sun Follow-up Provider: [facility] Follow-up with PCP in: 1 week Danis Thomas MD Nov 20, 2016 09:08
--- NOTE | 2016-11-20 09:50 | NUR ---
Dialysis Pt taken to dialysis by staff via WC. SL Left AC. A&OX4.
[2016-11-20 10:24] VITALS: BP 108/54; PULSE 66
[2016-11-20] MEDS: Sodium Thiosulfate 25% 12.5 Gm/50 mL Inj IV ONE ×2 (11:59→12:45)
[2016-11-20] MEDS ORDERED: 0.9% Sodium Chloride 250 ML ONE (12:14)
--- NOTE | 2016-11-20 12:34 | PCM.PNMED ---
Subjective Date of Service Nov 20, 2016 Subjective Patient offers no new complaints today. She was evaluated by weigh box tender. Hemodialysis is pending today. Amputation of the left third and left fourth toes at the level of the interphalangeal joints and excision of gangrenous ulceration left fourth webspace on November 18. Exam Vital Signs Vital Sign - Last Date Time Temp Pulse Resp B/P Pulse Ox O2 Delivery O2 Flow Rate FiO2 11/20/16 08:19 Supplement Oxygen 11/20/16 07:37 63 16 84 11/20/16 06:54 36.4 128/72 Intake and Output 11/19/16 11/19/16 11/20/16 Cumulative From/Thru 15:00 23:00 07:00 11/16/16 15:08 - 11/20/16 06:54 Intake Total 600 ml 912 ml 535 ml 5022 ml Output Total 0 ml 0 ml 0 ml 1205 ml Balance 600 ml 912 ml 535 ml 3817 ml Intake Oral 600 ml 912 ml 475 ml 3743 ml IV Total 60 ml 1279 ml Output Urine Total 0 ml 0 ml 0 ml 100 ml Ultrafiltrate 1100 ml Estimated Blood Loss 5 ml # Voids 3 # Bowel Movements 0 0 0 0 Exam GENERAL: The patient in no apparent distress, and alert and oriented x3. VITAL SIGNS: as documented HEENT: Head is normocephalic and atraumatic. Extraocular muscles are intact. Pupils are equal, round, and reactive to light and accommodation. Nares appeared normal. Mouth is well hydrated and without lesions. Mucous membranes are moist. Posterior pharynx clear of any exudate or lesions. NECK: Supple, no elevation of JVD, No carotid bruits. No lymphadenopathy or thyromegaly. LUNGS: Clear to auscultation, equal breath sounds bilaterally, no wheezing, no rhonchi no rales. HEART: Normal S1/S2, Regular rate and rhythm, no murmurs, rubs or gallops. 2+ pules throughout. ABDOMEN: Soft, nontender, and nondistended. Positive bowel sounds. No hepatosplenomegaly was noted. EXTREMITIES: Dressing on the left foot, no lower extremity swelling on the right foot. NEUROLOGIC: The patient is oriented to person, place and time. Strength and sensation are grossly intact. SKIN: No ulceration or induration present. Lab and Diagnostics Result Diagram: 11/20/16 0540 11/20/16 0540 Microbiology Blood cultures pending Did not obtain swab culture of the foot as it would likely not be beneficial in her workup or management proceeding forward. X-Rays, CTs and MRIs Date of Service: 11/16/16 1631 PROCEDURE: X-RAY LEFT FOOT COMPLETE, MINIMUM THREE VIEWS ([id number]) IMPRESSION: No bony abnormality is seen. Prominent atherosclerotic calcifications are seen. No radiopaque foreign body is identified. Dictated by: Joshua Taylor M.D. on 11/16/2016 at 18:03 12-lead ECG Not performed this visit, and patient denies any history of palpitations, irregular heart rhythm. Cardiac Echo Impressions See past medical history above. Assessment & Plan 1. End-stage renal disease on hemodialysis. With history of noncompliant. 2. Diabetic foot ulcer and gangrene of third and fourth toes status post amputation. 3. 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 4. Hypertension with hypertensive nephrosclerosis. Plan: Patient will receive hemodialysis today. 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 Follow up with weigh box tender. Adherence to hemodialysis is encouraged. GI Prophylaxis: Not indicated VTE Prophylaxis: Sub-Q Heparin (Unfractionated) VTE Mechanical Devices: Intermittant Pneumatic CD Resuscitation Status: CPR: Attempt Resuscitation Rukhsana Triplett MD Nov 20, 2016 12:34
--- NOTE | 2016-11-20 14:11 | NUR ---
Dialysis note: 3 1/2 hr rxd tx. Pt completed 3 hr 15 min of tx. Net UF 1.5. Pt requested a chair to be used for dialysis and arrived on MOC in wheel chair. right fistula accessed with 15 g needles without difficulty. UF turned off for last 30 min r/t cramping. Sodium Thiosulfate given over the last 1 hr. of tx. Pt ate lunch, BG 121. site clamped x 10 min and secured with bandaids, gauze and tape. Pt returned to floor via wheelchair in stable condition. Please see DTR for complete record of VS.
--- NOTE | 2016-11-20 14:45 | NUR ---
DC Pt back from dialysis @ 1420. Transported via by staff. Left foot splint on. Dsg C/D/I. A&OX4. Denies CP, SOB, Nausea. No C/O pain. Prescription in hand. All discharge instructions understood by pt and . Pt home with . Care discontinued
--- NOTE | 2016-11-21 07:14 | PCM.ANEP2 ---
Post Anesthesia Evaluation ASA/CMS Post Anesthesia VS in Patient's Normal Range?: Yes Resp Stable; Airway Patent?: Yes CV Function & Hydration Stable: Yes Mental Status Recovered?: Yes Pain control Satisfactory?: Yes N/V Control Satisfactory?: Yes Sebas Cifuentes MD Nov 21, 2016 07:14
--- NOTE | 2016-11-21 07:14 | PCM.ANEP1 ---
Post Anesthesia Phase 1 PACU Phase 1 Assessment Date of Service: Nov 19, 2016 Anesthetic Administered: MAC Level of Alertness: Awake, talking COOK's with Equal Strength: No (L toe amputation) Pain: Yes Pain Scale Score: 5 Lungs: Clear to Auscultation Summary able to bypass PACU and go back to floor. Minimal sedation required. Tolerated procedure well. Sebas Cifuentes MD Nov 21, 2016 07:14
--- NOTE | 2016-11-22 16:32 | PCM.DC.MED ---
Discharge Summary Date of Service Nov 20, 2016 Dates of Hospitalization Date of Hospital Admission Nov 16, 2016 at 19:41 Date of Discharge: Nov 20, 2016 Providers: Admitting Physician: Roseline Maynard DO Primary Care Physician: Mata Attending Physician: Roseline Maynard DO Diagnosis at Time of Discharge Diagnosis at Time of Discharge acute problems Necrotic diabetic foot ulcer s/p amputation Type 2 diabetes, uncontrolled a1c8.0 c/b Nephropathy, Diabetic Retinopathy, Neuropathy, Chronic nausea, suspected gastroparesis ESRD on HD chronic problems, stable, continued home meds #Chronic macrocytic anemia, #CVA (07/15/14) with residual swallowing occasionally, and occasional left sided weakness, #History of chronic headaches #CAD status post DE with patient report of stent placement #Chronic CHF secondary to diastolic dysfunction #Peripheral arterial disease status post bilateral lower extremity vascular stent placement per patient report #COPD/Asthma #Obesity BMI 39.5 #Chronic pain, #Tobacco dependence #HTN #Hyperlipidemia Consultations Podiatry Procedures XRay, CTs & MRIs Date of Service: 11/16/16 1631 PROCEDURE: X-RAY LEFT FOOT COMPLETE, MINIMUM THREE VIEWS ([id number]) IMPRESSION: No bony abnormality is seen. Prominent atherosclerotic calcifications are seen. No radiopaque foreign body is identified. Dictated by: Joshua Taylor M.D. on 11/16/2016 at 18:03 Brief History HPI obtained by on 11/16 Juancarlos Robles is an obese 51-year-old female with history of diabetes on insulin and end-stage renal disease on hemodialysis (Mo, Fr), and significant peripheral arterial disease who presents to the ER (from urgent care) with 1 month complaint of nonhealing ulcers/lesions to her left third and fourth toes which acutely worsened yesterday with increased swelling, redness, pain to the left foot. Patient reports that she had a previous occurrence on her right foot years ago which healed well with conservative management at home. She notes that she has long-standing neuropathy in both feet, but states that she is able to feel. She reports that she first noted the lesions on her left third and fourth toes one month ago, and reports soaking her foot in soapy water, and keeping it covered with bandages. She reports that it would seem to get better, and then get worse again. She has not seen a physician for this. She has not been on any antibiotics in the last 3-6 months. She reports that she does not check her sugars very much, and there is some question of compliance. She reports that approximately one day ago she noticed the left foot started to swell, and get slightly red, and there was an increase in pain leading to her presentation at the urgent care clinic (and therefore) ER tonight. In the ER, her vital signs look good, but based on the appearance of the foot itself patient was started on empiric vancomycin and Zosyn. An x-ray of the foot did not demonstrate bony involvement. She was given 1 L of fluid IV, but subsequently noted some increased shortness of breath (she reports that she gets this way with too much fluid), and was given an IV dose of Lasix. ER physician discussed the case with nephrology and also with podiatry/orthopedics , and they agree with decision to admit for further management, and those specialists will be seeing the patient in the morning. Patient is admitted under inpatient status with expected length of stay greater than 2 midnights due to severity of presenting symptoms, risk of adverse event, and complexity of treatment plan. Hospital Course Juancarlos Robles is an obese 51-year-old female with history of diabetes on insulin and end-stage renal disease on hemodialysis (Mo, Fr), and significant peripheral arterial disease who presents to the ER (from urgent care) with 1 month complaint of nonhealing ulcers/lesions to her left third and fourth toes which acutely worsened yesterday with increased swelling, redness, pain to the left foot. acute problems #Necrotic, nonhealing, diabetic foot ulcerations of the third and fourth toes on the left with associated cellulitis, pt was started on vancomycin and zosyn on adm, d/lewis vanc 11/19, underwent amputations of Toes on by . plan to d/c with Augmentin per . pain was controlled with norco and dilaudid prn #Type 2 diabetes, uncontrolled a1c8.0 c/b Nephropathy, Diabetic Retinopathy, Neuropathy, Chronic nausea, suspected gastroparesis, controlled with [id number] qhs, lispro SS #ESRD on HD, pt refused HD today, questionable compliance, appreciate renal recs , avoid renal toxin, adjust meds renally, pt received HD as scheduled chronic problems, stable, continued home meds #Chronic macrocytic anemia, h/h stable, vitB12/folate WNL, #CVA (07/15/14) with residual swallowing occasionally, and occasional left sided weakness, continued diet w/o aspiration. #History of chronic headaches #CAD status post DE with patient report of stent placement-continue cardiac meds #Chronic CHF secondary to diastolic dysfunction-continue cardiac meds #Peripheral arterial disease status post bilateral lower extremity vascular stent placement per patient report-management as above #COPD/Asthma-continue inhaled medications #Obesity BMI 39.5 #Chronic pain, not on opiates #Tobacco dependence-encourage cessation #HTN-continue antihypertensives #Hyperlipidemia-not on a statin (patient reports history of allergies/ intolerance to such) Exam Vital Signs (Last) Date Time Temp Pulse Resp B/P Pulse Ox O2 Delivery O2 Flow Rate FiO2 11/20/16 10:24 66 11/20/16 08:19 Supplement Oxygen 11/20/16 07:37 16 84 11/20/16 06:54 36.4 128/72 Exam obese middle aged female, looked comfortable no JVD, MMM, no LAD RRR, nl s1, s2 no mrg CTAB, no w,c S,ND,NT,normoactive BS+ warm, no edema, pulses 2/2 Lt toe-sterilely dressed Test 11/16/16 16:57 11/17/16 05:45 11/17/16 10:30 11/19/16 05:32 Hemoglobin A1c 8.0% (4.8-5.6) Lactic Acid Level 1.4mmol/L (0.4-2.0) C-Reactive Protein 13.6mg/dL (0.0-0.5) Vitamin B12 Level 993pg/mL (211-946) Folate 17.9ng/mL (>3.0) Hold Zavala Top Tube Received (Received) Erythrocyte Sedimentation Rate > 140mm/hr (0-40) Procalcitonin 0.23ng/mL (0.00-0.08) Vancomycin Level Trough 19.9mcg/mL Urine Color Yellow (YELLOW) Urine Appearance Clear (CLEAR,HAZY) Urine pH 7.5 (5.0-8.0) Urine Specific Shirley 1.015 (1.003-1.035) Urine Protein 100mg/dL (NEG,TRACE) Urine Glucose (UA) Negativemg/dL (NEGATIVE) Urine Ketones Negativemg/dL (NEGATIVE) Urine Occult Blood Trace (NEGATIVE) Urine Nitrite Negative (NEGATIVE) Urine Bilirubin Negative (NEGATIVE) Urine Urobilinogen Normalmg/dL (NORMAL) Urine Leukocyte Esterase Negative (NEGATIVE) Urine RBC 0-2/hpf (0-2) Urine WBC 0-5/hpf (0-5) Urine Epithelial Cells Occasional/hpf (NONE-MOD) Urine Crystals None seen (NONE SEEN) Urine Bacteria None/hpf (NONE-FEW) Urine Hyaline Casts None/lpf (NONE) Urine Granular Casts None seen (NONE SEEN) Urine Waxy Casts None seen (NONE SEEN) Urine Red Blood Cell Casts None seen (NONE SEEN) Urine White Blood Cell Casts None seen (NONE SEEN) Urine Mucus None seen (None Seen) Urine Trichomonas None seen (NONE SEEN) Urine Yeast None (NONE SEEN) Urinalysis Comment None Urine Culture Reflexed Not indicated Parathyroid Hormone (Intact) 704pg/mL (15-65) Test 11/20/16 05:40 White Blood Count 10.4th/mm3 (3.8-10.1) Red Blood Count 2.62mil/mm3 (3.90-5.20) Hemoglobin 8.0g/dL (12.0-15.6) Hematocrit 26.8% (35.0-46.0) Mean Corpuscular Volume 102.3fL (81-100) Mean Corpuscular Hemoglobin 30.5pg (27.0-35.0) Mean Corpuscular Hemoglobin Concent 29.9% (32.0-37.0) Red Cell Distribution Width 15.0% (12.3-15.4) Platelet Count 358bil/L (150-400) Neutrophils (%) (Auto) 77.2% (40-74) Lymphocytes (%) (Auto) 9.7% (14-46) Monocytes (%) (Auto) 9.7% (4-12) Eosinophils (%) (Auto) 2.7% (0-5) Basophils (%) (Auto) 0.4% (0-3) Sodium Level 140mEq/L (134-144) Potassium Level 5.1mEq/L (3.5-5.2) Chloride Level 98mEq/L (97-108) Carbon Dioxide Level 21mmol/L (18-29) Blood Urea Nitrogen 47mg/dL (6-24) Creatinine 6.52mg/dL (0.57-1.00) Estimat Glomerular Filtration Rate 10mL/min (>59) Glucose Level 115mg/dL (60-99) Calcium Level 7.7mg/dL (8.5-10.1) Phosphorus Level 7.8mg/dL (2.5-4.9) Magnesium Level 2.1mg/dL (1.6-2.6) Total Bilirubin 0.2mg/dL (0.0-1.2) Aspartate Amino Transf (AST/SGOT) 8U/L (0-50) Alanine Aminotransferase (ALT/SGPT) 6U/L (0-32) Alkaline Phosphatase 57U/L (25-150) Total Protein 6.1g/dL (6.4-8.4) Albumin 3.1g/dL (3.4-5.0) Microbiology Results Blood cultures pending Did not obtain swab culture of the foot as it would likely not be beneficial in her workup or management proceeding forward. Discharge Medications Discharge Medications Albuterol/Ipratropium (Combivent Respimat Inhal [place]) 120 Spr/4 Gm Inhaler 1 PUFF IH QID (Reported) Not taking Amlodipine (Norvasc) 5 Mg Tablet 5 MG PO HS (Reported) Amoxicillin/Clav K 875-125 mg (Augmentin 875-125 mg) 1 Each Tablet 1 TABLET PO BID Prescribed by: DANIS AHMADI MD Aspirin (Aspirin) 325 Mg Tablet 325 MG PO DAILY (Reported) Calcium Acetate (Phoslyra) 667 Mg/5 Ml Solution 667 MG PO TIDWM (Reported) Doesn't remember to take often Carvedilol (Carvedilol) 25 Mg Tablet 25 MG PO BIDWM (Reported) Cholecalciferol (Vitamin D3) (Vitamin D3) 50,000 Unit Capsule 50,000 UNIT PO WEEKLY (Reported) Takes on Mondays Furosemide (Furosemide) 80 Mg Tab 80 MG PO HS (Reported) Insulin Glargine (Lantus U100 Solostar Insulin Pen) 100 Unit/1 Ml Insuln.pen 30 UNIT SUBQ HS (Reported) Insulin Regular, Human (HUMulin-R U100 Insulin Vial) 100 Unit/1 Ml Vial 3-6 UNIT SUBQ TIDWM (Reported) SLIDING SCALE Lisinopril (Lisinopril) 5 Mg Tablet 5 MG PO HS (Reported) Metolazone (Metolazone) 5 Mg Tablet 5 MG PO HS (Reported) Multivitamin/Iron/Folic Acid (Cerovite Advanced Form Tab) 1 Each Tablet 1 EACH PO DAILY (Reported) Sodium Polystyrene Sulfonate (Kionex) 15 Gm/60 Ml Oral.susp 15 GM PO //Sun ( Reported) As needed Albuterol HFA (Proair HFA) 8.5 Gm Hfa.aer.ad 2 PUFFS INHALATION Q4H PRN PRN For Shortness of Breath (Reported) Aspirin (Aspirin) 325 Mg Tablet 325-1,300 MG PO TID PRN PRN For Pain (Reported) Hydrocodone-Acetaminophen 5-325 mg (Hydrocodone-Acetaminophen 5-325 mg) 1 Each Tablet 1 TABLET PO Q6 PRN PRN For Mild Pain Prescribed by: DANIS AHMADI MD Lorazepam (Lorazepam) 0.5 Mg Tablet 0.5 MG PO TID PRN PRN For Anxiety (Reported ) Uses mainly for insomnia Nitroglycerin SL (Nitroglycerin SL) 0.4 Mg Tab.subl 0.4 MG SL PRN HYPERtension ( Reported) Ranitidine (Ranitidine) 150 Mg Capsule 150 MG PO BID PRN PRN acid reflux ( Reported) Sumatriptan Succinate (Imitrex) 50 Mg Tablet 50 MG PO DAILY PRN PRN Migraines ( Reported) Additional med instructions take Percocet every 4-6hrs as needed for pain take Augmentin twice a day, antibiotics for one week. Followup Plan Disposition: home Follow-up plan Please follow up with new doctor in Residency clinic in 1-2weeks Please see in the clinic scheduled on Sun Discharge Diet: Low fat, Low Sodium, Heart Healthy, Diabetic Discharge Activity: No restrictions Patient Instructions You were hospitalized with necrotic toe ulcers, underwent amputation by Podiatry. Please note that strict blood sugar control is very important in healing process Follow-up Provider: [facility] Follow-up with PCP in: 1 week Time spent 65min Danis Ahmadi MD Nov 20, 2016 15:47
--- NOTE | 2016-11-23 12:59 | PATH ---
SURGICAL PATHOLOGY Attending Physician:Radha Pardo CASE STATUS: Signed Out PATIENT NAME: LARRY GRULLON PID: [id number] : 1965 DATE COLLECTED:11/18/2016 00:00 SPECIMEN: Extremity Amputation, Non-Traumatic CLINICAL HISTORY: GANGRENE OF TOES LEFT FOOT 1). 3RD AND 4TH TOES LEFT FOOT FINAL DIAGNOSIS: 1.AMPUTATED LEFT THIRD AND FOURTH TOES: EXTENSIVE GANGRENOUS NECROSIS, SKIN AND SOFT TISSUE WITH ASSOCIATED OSTEOMYELITIS AND FOCAL BONE NECROSIS INVOLVING BOTH TOES. SKIN AND SOFT TISSUE MARGIN OF THIRD TOE SHOWS ACUTE INFLAMMATION AND SKIN AND SOFT TISSUE NECROSIS EXTENDING TO WITHIN 0.1 CM OF THE LATERAL ASPECT. SECTIONS OF PROXIMAL MARGIN OF FOURTH TOE SHOW EXTENSIVE SKIN AND SOFT TISSUE NECROSIS. ICD10 CODE I70.268 GROSS DESCRIPTION: The specimen is received in formalin, labeled with the patient's name, sublabeled as 3rd and 4th toes left foot and consists of 2 disarticulated toes (toe #3-4.1 cm in AP, 1.6 cm SI, 1.6 cm ML; toe #4-2.7 cm in AP, 1.6 cm SI, 1.5 cm ML). The toenails are present. The skin of the superior and lateral aspects of toe #3 and the superior and medial aspect of toe #4 is holder-yellow and focally brown-black. The remaining skin is pale white smooth and shiny. No nodules, masses, lesions or wounds are identified. The underlying bone is easily sliced with a scalpel. The bone cut surface is dark brown and porous. Ink code: green-medial; blue-lateral. Section code: Toe #3: (A) skin soft tissue resection margins; (B) bone articular surface; (C) irregular tissue, b2b outside sales representative; (D) underlying bone, serially sectioned, b2b outside sales representative. Toe #4: (E) skin soft tissue resection margins; (F) bone articular surface; (G) irregular tissue, b2b outside sales representative; (H) underlying bone, serially sectioned, b2b outside sales representative. Note: The bone sections have been decalcified. 11/21/16 JM MICRO DESCRIPTION: See diagnosis. ICD-9 CODES: CPT CODES: 1: 18833 Electronically Signed Out Guillermo Farr MD [facility] [address], [place] [address] Technical component performed at [facility], [address], [place], [address]
== END 2016-11-20 14:45 | disposition home or self-care (01) | DRG 255 ==
LOC: SED 14:56 → OSC 19:41
PROVIDERS: ADMIT Internal Medicine; ATTEND Internal Medicine
PROC: 0Y6W0Z2 Detachment at Left 4th Toe, Mid, Open Approach (ICD-10-PCS; 2016-11-18)
PROC: 0JBR0ZZ Excision of Left Foot Subcutaneous Tissue and Fascia, Open Approach (ICD-10-PCS; 2016-11-18)
PROC: 0Y6U0Z2 Detachment at Left 3rd Toe, Mid, Open Approach (ICD-10-PCS; principal; 2016-11-18 11:30)
DX: E11.52 Type 2 diabetes mellitus with diabetic peripheral angiopathy with gangrene (principal); N18.6 End stage renal disease; I50.32 Chronic diastolic (congestive) heart failure; L03.116 Cellulitis of left lower limb; I13.2 Hypertensive heart and chronic kidney disease with heart failure and with stage 5 chronic kidney disease, or end stage renal disease; E11.621 Type 2 diabetes mellitus with foot ulcer; L97.529 Non-pressure chronic ulcer of other part of left foot with unspecified severity; E78.5 Hyperlipidemia, unspecified; J44.9 Chronic obstructive pulmonary disease, unspecified; J45.909 Unspecified asthma, uncomplicated; Z99.2 Dependence on renal dialysis; E11.40 Type 2 diabetes mellitus with diabetic neuropathy, unspecified; Z79.4 Long term (current) use of insulin; F17.210 Nicotine dependence, cigarettes, uncomplicated; E11.319 Type 2 diabetes mellitus with unspecified diabetic retinopathy without macular edema; I25.10 Atherosclerotic heart disease of native coronary artery without angina pectoris; Z91.15 Patient's noncompliance with renal dialysis; E66.9 Obesity, unspecified; Z68.39 Body mass index [BMI] 39.0-39.9, adult; I73.9 Peripheral vascular disease, unspecified; D53.9 Nutritional anemia, unspecified; Z28.21 Immunization not carried out because of patient refusal

== ENCOUNTER 2017-04-30 13:43 | Inpatient (IN) | payer MEDICARE, MEDICAID ==
[~2017-04-30] VITALS: Ht 167.6 cm; Wt 109.3 kg
[~2017-04-30 13:43] MED LIST changes: +AMOX-366 PO; +ASPI325T32 PO; -ASPI81TA3 PO; +CALC667S PO; +CHOL500050 PO; -CLOP75TA3 PO; +FRSM80T PO; -FURO-128 PO; +HYDR-4003 PO; +LISI-571 PO; +METO5TAB5 PO; -MULT-666 PO; +MULT1TAB59 PO; -PHO667 PO; +SODI15OR2 PO; +SUMA50TA31 PO; +Vancomycin Dose per Pharmacist XX ONE
[2017-04-30 14:02] VITALS: BP 144/77; PULSE 67; RESP 16; O2SAT 95
[2017-04-30 15:25] LABS: BASOPHILS % (AUTO) 0.1 % (0-3); MONOCYTES % (AUTO) 6.2 % (4-12); Mean Corpuscular Hemoglobin 31.2 pg (27.0-35.0); Mean Corpuscular Volume 98.8 fL (81-100); NEUTROPHILS % (AUTO) 84.8 % (40-74); Platelet Count 331 bil/L (150-400)
--- NOTE | 2017-04-30 15:41 | ED.REPORT ---
HPI-General Illness Date of Service Apr 30, 2017 ED Provider: Peter Cruz DO Pt is a 51 y/o female with a history of ESRD on dialysis, HTN, IDDM, anemia, CVA , CAD, and HLD who presents to the ED by recommendation of metal cnc operator Dr. Pardo c/ o progressively worsening nonhealing L foot wounds onset 4-6 months. Her foot has been more erythematous, swollen, and painful over the past few weeks. She also has had painful wounds on her R digits for two months. She states her symptoms are so severe that she has trouble walking and sleeping. She denies fever or chills. Pt only reports taking Tylenol, and was given Silvadene cream and steroids for her symptoms without relief. She is scheduled for arterial mapping in [address] Frost. Nursing Notes Stated Complaint: FOOT WOUNDS Chief Complaint: General Complaint Nursing Notes Reviewed: Yes Allergies: Coded Allergies: atenolol (Verified Adverse Reaction, Severe, PROFOUND HYPOTENSION, 11/16/16) [id number] Reductase Inhibitor (Verified Adverse Reaction, Intermediate, Muscle Pain/Weakness, 11/16/16) clopidogrel (Verified Adverse Reaction, Intermediate, Bleeding, 11/16/16) ezetimibe (Verified Adverse Reaction, Intermediate, Muscle Pain/Muscle Weakness, 11/16/16) Scheduled Albuterol/Ipratropium (Combivent Respimat Inhal [place]) 120 Spr/4 Gm Inhaler 1 PUFF IH QID Not taking Amlodipine (Norvasc) 5 Mg Tablet 5 MG PO HS Amoxicillin/Clav K 875-125 mg (Augmentin 875-125 mg) 1 Each Tablet 1 TABLET PO BID Aspirin (Aspirin) 325 Mg Tablet 325 MG PO DAILY Calcium Acetate (Phoslyra) 667 Mg/5 Ml Solution 667 MG PO TIDWM Doesn't remember to take often Carvedilol (Carvedilol) 25 Mg Tablet 25 MG PO BIDWM Cholecalciferol (Vitamin D3) (Vitamin D3) 50,000 Unit Capsule 50,000 UNIT PO WEEKLY Takes on Mondays Furosemide (Furosemide) 80 Mg Tab 80 MG PO HS Insulin Glargine (Lantus U100 Solostar Insulin Pen) 100 Unit/1 Ml Insuln.pen 30 UNIT SUBQ HS Insulin Regular, Human (HUMulin-R U100 Insulin Vial) 100 Unit/1 Ml Vial 3-6 UNIT SUBQ TIDWM SLIDING SCALE Lisinopril (Lisinopril) 5 Mg Tablet 5 MG PO HS Metolazone (Metolazone) 5 Mg Tablet 5 MG PO HS Multivitamin/Iron/Folic Acid (Cerovite Advanced Form Tab) 1 Each Tablet 1 EACH PO DAILY Sodium Polystyrene Sulfonate (Kionex) 15 Gm/60 Ml Oral.susp 15 GM PO //Sun Scheduled PRN Albuterol HFA (Proair HFA) 8.5 Gm Hfa.aer.ad 2 PUFFS INHALATION Q4H PRN PRN For Shortness of Breath Aspirin (Aspirin) 325 Mg Tablet 325-1,300 MG PO TID PRN PRN For Pain Hydrocodone-Acetaminophen 5-325 mg (Hydrocodone-Acetaminophen 5-325 mg) 1 Each Tablet 1 TABLET PO Q6 PRN PRN For Mild Pain Lorazepam (Lorazepam) 0.5 Mg Tablet 0.5 MG PO TID PRN PRN For Anxiety Uses mainly for insomnia Nitroglycerin SL (Nitroglycerin SL) 0.4 Mg Tab.subl 0.4 MG SL PRN HYPERtension Ranitidine (Ranitidine) 150 Mg Capsule 150 MG PO BID PRN PRN acid reflux Sumatriptan Succinate (Imitrex) 50 Mg Tablet 50 MG PO DAILY PRN PRN Migraines General Time Seen by MD: 15:39 Chief Complaint Other (Foot wounds) Hx Obtained From: Patient, Spouse Arrived By: Walk-in Sudden in Onset?: No Onset Occurred: More than a week ago... (4 months) Symptom Duration: Constant Location: : Foot left Quality: Painful Severity: Current: Moderate Severity: Maximum: Severe Recent Healthcare: Recent doctor visit Similar Sx Previous: Yes Past Medical History Past Medical History Notes: PCP: Dr. Andrea Gandhi Doll Surgeon: Dr. Grey Environmental Science Professor: Dr. Bee Past Medical History CVA (07/15/14) Gallstones History of chronic headaches Multiple episodes of community-acquired pneumonia Chronic CHF secondary to diastolic dysfunction. Type 2 diabetes, insulin requiring with history of non adherence a. Nephropathy b. Diabetic Retinopathy c. Neuropathy d. Chronic nausea, suspected gastroparesis COPD reported though had fairly normal PFTs in 2011 Obesity BMI 38 Dyslipidemia Chronic abdominal discomfort. Prior history of bowel obstruction reportedly secondary to benign pelvic tumors. Ovarian cyst removal with bilateral oophorectomy and hysterectomy in 2000. Asthma HTN Hyperlipidemia ESRD dialysis dependency Sep 2014 Reports: Hyperlipidemia Past Surgical History Shunt R forearm Bilateral oophorectomy Cardiac stents 06/29/15 Reports: , Hysterectomy Reports: Tubal ligation Smoking History Current Every Day Smoker Social History Alcohol Use: Denies alcohol use Drug Use: Denies drug use Other Social History: Ambulatory Status Independent Review of Systems Full Review of Systems Constitutional: Reports: Malaise, Denies: Chills, Fever Musculoskeletal: Reports: Extremity pain, Extremity swelling Skin: Reports Rash, Reports Swelling Complete sys rev & neg: except as marked. Physical Exam Vital Signs Vital Signs Date Time Temp Pulse Resp B/P Pulse Ox O2 Delivery O2 Flow Rate FiO2 04/30/17 14:02 37.3 67 16 144/77 95 Room Air Initial VS: Reviewed, Vital signs normal Head / Eyes: Atraumatic, Normocephalic Neck: Supple, Full range of motion Respiratory: Breath sounds normal, Clear to auscultation, No respiratory distress Cardiovascular: Regular rate & rhythm, Heart sounds normal, Intact distal pulses Abdomen / GI: Soft, Non-tender Neurologic: Alert, Oriented, Nonfocal Psychiatric: Mood/affect normal, Behavior normal, Normal thought content General/Constitutional: Awake, Alert Distress / Hydration: Positive: Distress moderate Appearance / Presentation: Positive: Obese, morbidly Upper Extremities Upper Extremity / MS: Neurologic intact Dialysis fistula present with palpable thrill Skin ulcerations to dorsum of 2nd, 3rd, and 4th digits on R hand Lower Extremity / Pelvis / MS: Neurologic intact, Vascular intact Ankle / Foot: No deformity, Neurologic intact Edema and erythema to L foot Chronic nonhealing wound of the 3rd and 4th toe space 5th toe is necrotic No palpable pulses Interpretation & Diagnostics Lab Results Interpretation Result Diagram: 04/30/17 1522 04/30/17 1522 Test 04/30/17 15:22 White Blood Count 14.4th/mm3 (3.8-10.1) Red Blood Count 3.46mil/mm3 (3.90-5.20) Hemoglobin 10.8g/dL (12.0-15.6) Hematocrit 34.2% (35.0-46.0) Mean Corpuscular Volume 98.8fL (81-100) Mean Corpuscular Hemoglobin 31.2pg (27.0-35.0) Mean Corpuscular Hemoglobin Concent 31.6% (32.0-37.0) Red Cell Distribution Width 15.3% (12.3-15.4) Platelet Count 331bil/L (150-400) Neutrophils (%) (Auto) 84.8% (40-74) Lymphocytes (%) (Auto) 7.6% (14-46) Monocytes (%) (Auto) 6.2% (4-12) Eosinophils (%) (Auto) 1.0% (0-5) Basophils (%) (Auto) 0.1% (0-3) Erythrocyte Sedimentation Rate > 140mm/hr (0-40) Sodium Level 135mEq/L (134-144) Potassium Level 6.8mEq/L (3.5-5.2) Chloride Level 98mEq/L (97-108) Carbon Dioxide Level 18mmol/L (18-29) Blood Urea Nitrogen 69mg/dL (6-24) Creatinine 7.35mg/dL (0.57-1.00) Estimat Glomerular Filtration Rate 8mL/min (>59) Glucose Level 177mg/dL (60-99) Lactic Acid Level 1.2mmol/L (0.4-2.0) Calcium Level 9.1mg/dL (8.5-10.1) Magnesium Level 2.4mg/dL (1.6-2.6) Total Bilirubin 0.2mg/dL (0.0-1.2) Aspartate Amino Transf (AST/SGOT) 7U/L (0-50) Alanine Aminotransferase (ALT/SGPT) 5U/L (0-32) Alkaline Phosphatase 73U/L (25-150) Total Protein 7.8g/dL (6.4-8.4) Albumin 3.6g/dL (3.4-5.0) Procalcitonin 0.17ng/mL (0.00-0.08) ECG Interpretation ECG Interpretation: Sinus rhythm, rate 69 Peaked T waves anteriorly, somewhat increased from previous New T wave inversion isolated to V4 Similar to previous Time: 16:17 Interpreted by: ED physician Normal ECG Interpretation: No acute ischemic changes X-Ray Chest Interpretation Chest Xray Interpretation: IMPRESSION: Suspect mild pulmonary edema, heart size at the upper limits of normal. Dictated by: Kiko Ferris M.D. on 04/30/2017 at 16:40 Approved by: Kiko Ferris M.D. on 04/30/2017 at 16:41 View: Portable, 1 view Interpretation / Wet Read by: Interpret - Radiologist Re-Eval/Medical Decision Med Decision/Clinical Course Diabetic foot infection with elevated inflammatory markers. Additionally hyperkalemic with signs of end-stage renal. We will plan to treat the hyperkalemia with calcium, insulin, dextrose. He required frequent glucose monitoring after this. Additionally, IV vancomycin and Zosyn given, will plan to urgently dialyze. Source of Hx: Old records Time of Eval: 16:49 Re-Evaluation/Progress Note: Pt rechecked. Informed pt of need for admission. Pt understands and agrees with plan for admission. All questions addressed. Consultation #1: Referral / Consult Name: Rukhsana Triplett MD Consulted With: Nephrology Call Returned at: 16:20 Security Professional: Agrees with eval, Agrees with plan Note: Discussed pt's case with correction officer reformatory, Dr. Stuart. Will arrange emergent dialysis. Will consult during admit. Consultation #2: Referral / Consult Name: Jose Chavez MD Consulted With: Surgeon Call Returned at: 16:49 Security Professional: Agrees with eval, Agrees with plan Note: Recommends arterial dopplers. Consultation #3: Referral / Consult Name: Michael Sandhu MD Security Professional: Accepts admit Counseled Regarding: Diagnosis, Lab results, Need for admission Discharge & Departure Primary Impression: Non-healing wound Additional Impressions: Hyperkalemia ESRD on dialysis Peripheral arterial disease Disposition: ADMITTED TO HOSPITAL Discharge Condition All VS Reviewed: Yes Condition: Stable Referrals: Rukhsana Triplett MD (PCP) Crit Care Except Billable Proc Time Spent: 30-74 minutes Services Performed: Patient management by me, Time spent at bedside, Reviewing test results, Reviewing imaging, Discussing patient care, Documentation in record Critical Care Notes: 45 minutes, see MDM Scribe Attestation Portions of this note were transcribed by Lisette Swan and Shiv June. I, Dr. Cruz, personally performed the history, physical exam and medical decision-making; I reviewed and confirmed the accuracy of the information in the transcribed note. Peter Cruz DO Apr 30, 2017 15:40 Lisette Swan Apr 30, 2017 16:03 SHIV JUNE Apr 30, 2017 16:53
[2017-04-30 15:53] LABS: Magnesium 2.4 mg/dL (1.6-2.6)
[2017-04-30] MEDS ORDERED: Ondansetron 2 mg/mL 2 mL Inj IVPUSH PRN (15:55)
[2017-04-30] MEDS ORDERED: Piperacillin-Tazo 3.375 Gm Inj 3.375 GM in Dextrose 5% Minibag Plus 50 ML IV ONE (15:55)
[2017-04-30] MEDS ORDERED: Calcium GLUCOnate 10% (Gm) 1 Gm/10 mL Inj IVPUSH ONE (16:00)
[2017-04-30] MEDS ORDERED: DEXTROSE 10% IV ONE (16:00)
[2017-04-30] MEDS ORDERED: Insulin Human REGular-Omnicell 100 Unit/mL SUBQ ONE (16:00)
[2017-04-30] MEDS ORDERED: Dextrose 10% 250 ML in IV Bag 1 EACH IV ONE (16:07)
[2017-04-30] MEDS ORDERED: Dextrose 10% 250 ML IV ONE ×2 (16:08→18:30)
--- NOTE | 2017-04-30 16:42 | DRSVH ---
PROCEDURE: X-RAY CHEST ONE VIEW, PORTABLE ([id number]) INDICATIONS: fluid overload TECHNIQUE: One view of the chest was acquired. COMPARISON: [facility], CR, XR CHEST 2VW, 08/24/2015, 16:04. [facility], CR, XR CHEST 2VW, 08/17/2015, 16:05. FINDINGS: Surgical changes and devices: None. Lungs and pleura: No pleural effusions or pneumothorax. Lungs are mildly edematous. Mediastinum: Mediastinal contours appear normal. Heart size is at the upper limits of. Bones and chest wall: No suspicious bony lesions. Overlying soft tissues appear unremarkable. IMPRESSION: Suspect mild pulmonary edema, heart size at the upper limits of normal. Dictated by: Kiko Ferris M.D. on 04/30/2017 at 16:40 Approved by: Kiko Ferris M.D. on 04/30/2017 at 16:41
[2017-04-30] MEDS ORDERED: Alum-Mag Hydrox-Simeth 30 mL Suspension PO PRN (17:40)
[2017-04-30] MEDS ORDERED: Polyethylene Glycol (PEG) 17 Gm Powder PO PRN (17:40)
[2017-04-30] MEDS ORDERED: fentaNYL-PF 50 mCg/mL 2 mL Inj IV PRN (17:40)
[2017-04-30] MEDS ORDERED: LORazepam 0.5 mg Tablet PO PRN (17:45)
[2017-04-30] MEDS ORDERED: Vancomycin Dose per Pharmacist XX SCH (17:50)
[2017-04-30] MEDS ORDERED: Glucose 40% Oral Gel 15 Gm Tube PO PRN (17:50)
[2017-04-30] MEDS ORDERED: Dextrose 10% 250 ML IV PRN ×2 (18:00→22:50)
--- NOTE | 2017-04-30 18:29 | PCM.HPMED ---
Subjective Date of Service Apr 30, 2017 Primary Provider: Admitting Physician: Primary Care Physician: Rukhsana Triplett MD Attending Physician: Admit Status: From the Emergency Department, Admit to Yellow Team Chief Complaint: 51-year-old woman with multiple advanced diabetic complications presents with osteomyelitis and left diabetic foot ulcer, soft tissue infections of the right hand, and electrolyte disorders related to missed dialysis History of Present Illness: She has had a chronic left foot ulcer for which she is seen by Dr. Pardo in podiatry. She has undergone prior amputation of the left third and fourth toes up actually 5 months ago. She has had a smoldering infection over the past 1-2 months which has become increasingly painful and reddened in the last 2 days. Recent course of Augmentin. For the past 2-3 days redness and streaking and increased swelling noted. She denies systemic fevers and chills. Appetite is normal. She has also had skin ulcerations were right hand for approximately 2 months. This was previously very erythematous and is now coalesced into ulcerations over the dorsum of her second to fourth digits. She undergoes hemodialysis on Sunday and Sunday. Increased pain caused her to miss dialysis on Sunday. She does produce urine and takes diuretics. She is on basal bolus insulin therapy for type II diabetes mellitus and reports blood sugars in the 100s recently, improved by her standard. Review of Systems: 11 systems were reviewed. Significant findings noted in history of present illness. Specifically no constitutional signs. Feet are bilaterally hyperesthetic with burning paresthesia. Vision is diminished due to bilateral retinopathy with history of laser photocoagulation. Allergies Coded Allergies: atenolol (Verified Adverse Reaction, Severe, PROFOUND HYPOTENSION, 11/16/16) Qlelvou-Qaj-Flx Reductase Inhibitor (Verified Adverse Reaction, Intermediate, Muscle Pain/Weakness, 11/16/16) clopidogrel (Verified Adverse Reaction, Intermediate, Bleeding, 11/16/16) ezetimibe (Verified Adverse Reaction, Intermediate, Muscle Pain/Muscle Weakness, 11/16/16) Home Medications Albuterol/ipratropium inhaler when necessary Amlodipine 5 mg at bedtime when necessary Augmentin 875/125 (completed course recently) Aspirin 325 mg 3 times a day when necessary Carvedilol 25 mg twice a day Calcium acetate 667 mg 3 times a day Cholecalciferol 50,000 units weekly Furosemide 80 mg at bedtime Vicodin one tablet by mouth 4 times a day when necessary Glargine insulin 30 units at bedtime Regular insulin 3-6 units 3 times a day W am Lisinopril 5 mg at bedtime Lorazepam 0.5 mg 3 times a day Metolazone 5 mg every DHS Multivitamin Ranitidine 150 twice a day Kayexalate 15 g 3 times per week Sumatriptan when necessary . PMH # ESRD # Type II diabetes mellitus - retinopathy, nephropathy, neuropathy, vasculopathy # Hypertension # CVA # CAD # Asthma # Migraine . Family History Mother colon cancer, several relatives with COPD. Type II diabetes mellitus. Social History Hx Alcohol Use: Yes (hx) Hx Substance Use: No Hx Tobacco Use: Yes Smoking Status: Current Every Day Smoker Living Arrangement: with Family Exam Vital Signs Vital Sign - Last Date Time Temp Pulse Resp B/P Pulse Ox O2 Delivery O2 Flow Rate FiO2 04/30/17 14:02 37.3 67 16 144/77 95 Room Air Exam General: Moderately obese woman in no acute distress HEENT: sclerae anicteric, oral mucosa moist, poor dentition Neck: no JVD, supple, no adenopathy Chest: clear to auscultation Cardiac: S1S2, no murmur Abdomen: BS normal, slight diffuse tenderness to palpation, no palpable HSM Extremities: Left foot with erythema over most of anterior lateral forefoot, missing third and fourth digit, fifth digit is necrotic; right foot without edema or active ulceration Neuro: A&O, cranial nerves symmetric, motor strength 5/5, coordination normal, light touch sensation reduced and feet; reflexes diminished bilaterally Lab and Diagnostics Labs ESR >140 Result Diagram: 04/30/17 1522 04/30/17 1522 X-Rays, CTs and MRIs PROCEDURE: X-RAY CHEST ONE VIEW, PORTABLE ([id number]) IMPRESSION: Suspect mild pulmonary edema, heart size at the upper limits of normal. Dictated by: Kiko Ferris M.D. on 04/30/2017 at 16:40 . 12-lead ECG SR 70 incomplete LBBB, inferior lateral T-wave inversions, no acute peak T- waves (personally reviewed) Assessment & Plan 51-year-old woman presents with progressive diabetic foot ulcer and fluid/ electrolyte abnormalities related to missed dialysis # Hyperkalemia, acute, present on admission. Initial serum potassium 6.8. Received insulin, glucose and calcium gluconate. No evidence of peaked T waves. - Kayexalate 1 now - We will hold off on further calcium gluconate unless signs of EKG toxicity # Diabetic foot ulcer left foot. Acute on chronic. Probable osteomyelitis. ESR greater than 140. Clinical exam with necrotic fifth phalanx. Leukocytosis but no other signs of systemic sepsis. - Arterial Dopplers pending - Gen. surgery consult and podiatry consult - Nothing by mouth after midnight - Cultures to be obtained at surgery - Vancomycin and Zosyn at renally adjusted doses - Infectious disease consult - Pain management by mouth and/or IV # Right hand skin ulceration, chronic. Possible vascular steal syndrome. - Arterial Doppler evaluation - Antibiotic-coated verge as above # End stage renal disease, hemodialysis, chronic. hest x-ray suggests fluid overload the patient is asymptomatic with good oxygenation. - Oxygen as needed - No intravenous fluid resuscitation - Nephrology consult, to manage dialysis schedule # Type II diabetes mellitus, insulin-dependent, chronic. - Hemoglobin A1c - Continue usual basal insulin - 30 units at bedtime - Nutritional and correctional lispro Resolving, stable and are chronic problems: # Hypertension, chronic.Continue usual medications except reduce diuretics in light of acute infection # Headache, chronic migraine. Patient states the trip tans are not effective. She endorses rest and Vicodin. # History of CVA, chronic. Patient is on aspirin prophylaxis. Plan to continue # Asthma - when necessary bronchodilators Disposition: Patient is admitted to inpatient status expectation of greater than 2 nights hospitalization for management of diabetic foot ulcer and hyperkalemia. Pain Evaluation: Adequate Pain Control VTE Prophylaxis: Sub-Q Heparin (Unfractionated) Resuscitation Status: CPR: Attempt Resuscitation Time spent 70 minutes Michael Sandhu MD Apr 30, 2017 18:29
--- NOTE | 2017-04-30 18:51 | DRSVH ---
PROCEDURE: US DUPLEX DOPPLER OF UNILATERAL ARM ARTERIES, RIGHT INDICATIONS: non healing wounds TECHNIQUE: Color and pulse Doppler interrogation was performed of right upper extremity arterial systems, with i mage documentation. COMPARISON: None. FINDINGS: Right upper extremity: Subclavian artery (mid): 111 cm/sec, with low resistance biphasic flow. Axillary artery: 2 47 cm/sec, with low resistance biphasic flow. Brachial artery (proximal): 173 cm/sec, with low resistance biphasic flow. Radial artery (proximal): 50 cm/sec, with retrograde flow at dialysis fistula anastomosis. Ulnar artery (proximal): 54 cm/sec, with antegrade flow. Hurtado-scale imaging description: Right radial artery steal phenomenon related to right upper extremit y fistula. No thrombus identified in the fistula. IMPRESSION: 1. Fistula stealing from right radial artery with reversal of flow in the right radial artery. 2. Normal antegrade flow noted in the right ulnar artery. Dictated by: Heydi Solorzano MD, PhD on 04/30/2017 at 18:45 Approved by: Heydi Solorzano MD, PhD on 04/30/2017 at 18:49
--- NOTE | 2017-04-30 18:55 | DRSVH ---
PROCEDURE: US DUPLEX DOPPLER UNILATERAL LEG ARTERIES, LEFT INDICATIONS: non healing wounds TECHNIQUE: Color and pulse Doppler interrogation was performed of the left lower extremity arterial system, with image documentation. COMPARISON: None. FINDINGS: Common femoral artery: 121 cm/sec, with biphasic flow. Deep femoral artery: 121 cm/sec, with biphasic flow. Proximal superficial femoral artery: 99 cm/sec, with biphasic flow. Mid superficial femoral artery: 113 cm/sec, with biphasic flow. Distal superficial femoral artery: 121 cm/sec, with biphasic flow. Popliteal artery: 131 cm/sec, with biphasic flow. Posterior tibial artery: 63 cm/sec, with biphasic flow. Anterior tibial artery/dorsalis pedis: 12 cm/sec, with biphasic flow. Hurtado-scale imaging description: Extensive atherosclerotic calcifications noted. IMPRESSION: 1. Hemodynamically significant atherosclerotic disease involving the anterior tibial artery. 2. No hemodynamically significant disease involving the femoral arteries, popliteal artery or gun stocker ior tibial artery. Dictated by: Heydi Solorzano MD, PhD on 04/30/2017 at 18:50 Approved by: Heydi Solorzano MD, PhD on 04/30/2017 at 18:54
[2017-04-30 19:08] VITALS: BP 120/54; PULSE 68; RESP 21; O2SAT 90
[2017-04-30 20:04] VITALS: BP 139/50; PULSE 68; RESP 20; O2SAT 97
[2017-04-30 20:28] VITALS: BP 167/86; PULSE 76; RESP 18; O2SAT 99
[2017-04-30 20:45] VITALS: PULSE 70
--- NOTE | 2017-04-30 21:33 | PCM.PNMED ---
Subjective Date of Service Apr 30, 2017 Subjective Was called to room by Pts nurse. Patient refusing Kayexalate and dialysis. "I just want to be comfortable." When asked for clarification of the statement, patient said she wished to be full code. When attempting to discuss emergent nature of the disease and need for treatment she began yelling saying she's been doing this for two years and her potassium level is only a little above normal. I asked her not to yell and to state understanding that without dialysis her potassium level isn't going to go down and only get worse. She told me to stop badgering her. "Linwood reji reji..leave me alone." Her was present in the room and I frankly stated that without treatment tonight her heart could stop before treatment tomorrow morning. She yelled " stop being so dramatic, leave me alone." Patient remains full code. Aware of chest compressions and intubation. Pt does not wish to be comfort care. Conversation was witness by Tegan Kyle Dialysis Nurse. Exam Vital Signs Vital Sign - Last Date Time Temp Pulse Resp B/P Pulse Ox O2 Delivery O2 Flow Rate FiO2 04/30/17 20:45 70 04/30/17 20:28 36.8 18 167/86 99 04/30/17 20:04 Nasal Cannula 2 Lab and Diagnostics Result Diagram: 04/30/17 1522 04/30/17 1522 X-Rays, CTs and MRIs PROCEDURE: X-RAY CHEST ONE VIEW, PORTABLE ([id number]) IMPRESSION: Suspect mild pulmonary edema, heart size at the upper limits of normal. Dictated by: Kiko Ferris M.D. on 04/30/2017 at 16:40 . 12-lead ECG SR 70 incomplete LBBB, inferior lateral T-wave inversions, no acute peak T- waves (personally reviewed) Assessment & Plan 51-year-old woman presents with progressive diabetic foot ulcer and fluid/ electrolyte abnormalities related to missed dialysis # Hyperkalemia, acute, present on admission. Initial serum potassium 6.8. Received insulin, glucose and calcium gluconate. No evidence of peaked T waves. - Kayexalate 1 now - We will hold off on further calcium gluconate unless signs of EKG toxicity # Diabetic foot ulcer left foot. Acute on chronic. Probable osteomyelitis. ESR greater than 140. Clinical exam with necrotic fifth phalanx. Leukocytosis but no other signs of systemic sepsis. - Arterial Dopplers pending - Gen. surgery consult and podiatry consult - Nothing by mouth after midnight - Cultures to be obtained at surgery - Vancomycin and Zosyn at renally adjusted doses - Infectious disease consult - Pain management by mouth and/or IV # Right hand skin ulceration, chronic. Possible vascular steal syndrome. - Arterial Doppler evaluation - Antibiotic-coated verge as above # End stage renal disease, hemodialysis, chronic. hest x-ray suggests fluid overload the patient is asymptomatic with good oxygenation. - Oxygen as needed - No intravenous fluid resuscitation - Nephrology consult, to manage dialysis schedule # Type II diabetes mellitus, insulin-dependent, chronic. - Hemoglobin A1c - Continue usual basal insulin - 30 units at bedtime - Nutritional and correctional lispro Resolving, stable and are chronic problems: # Hypertension, chronic.Continue usual medications except reduce diuretics in light of acute infection # Headache, chronic migraine. Patient states the trip tans are not effective. She endorses rest and Vicodin. # History of CVA, chronic. Patient is on aspirin prophylaxis. Plan to continue # Asthma - when necessary bronchodilators Disposition: Patient is admitted to inpatient status expectation of greater than 2 nights hospitalization for management of diabetic foot ulcer and hyperkalemia. VTE Prophylaxis: Sub-Q Heparin (Unfractionated) Resuscitation Status: CPR: Attempt Resuscitation Attending Statement Patient has been seen and examined by myself with medical reimbursement specialist and agree with above history, physical, assessment and plan. Dev Moreno DO Apr 30, 2017 21:33 Tegan Nichole MD May 01, 2017 06:31
[2017-04-30] MEDS: Heparin 5,000 Unit/mL Inj SUBQ SCH (21:58)
[2017-04-30] MEDS: Insulin LISPRO 300 Unit/3 mL Inj SUBQ SCH (22:00)
--- NOTE | 2017-04-30 22:01 | PCM.CONPHA ---
Assessment/Plan Assessment/Plan Pharmacy Kinetic Dosing Vancomycin Indication: FOOT WOUNDS Vanc goal trough: 15-20 mcg/mL Pt wt: 102.7 kg Other ABX: ZOSYN Cultures: Blood PENDING SCr: 7.35mg/dL Assessment/Plan: - Loading dose of Vancomycin 2000 mg given in ED, since patient is a ESRD patient on dialysis will draw a random trough scheduled on 05/01/17 @ 0500 and floor pharmacist will dose next vancomycin following dialysis. Currently patient is refusing dialysis tonight, anticipate tomorrow Pharmacy appreciates consult and will continue to monitor. Soni Carranza PharmD Apr 30, 2017 22:01
--- NOTE | 2017-04-30 22:16 | PCM.PNMED ---
Subjective Date of Service Apr 30, 2017 Subjective As to see patient by resident jose Moreno S patient is refusing to take Kayexalate and also is refusing emergent dialysis tonight for hyperkalemia. Exam Vital Signs Vital Sign - Last Date Time Temp Pulse Resp B/P Pulse Ox O2 Delivery O2 Flow Rate FiO2 04/30/17 20:45 70 04/30/17 20:28 36.8 18 167/86 99 04/30/17 20:04 Nasal Cannula 2 Lab and Diagnostics Result Diagram: 04/30/17 1522 04/30/17 1522 X-Rays, CTs and MRIs PROCEDURE: X-RAY CHEST ONE VIEW, PORTABLE ([id number]) IMPRESSION: Suspect mild pulmonary edema, heart size at the upper limits of normal. Dictated by: Kiko Ferris M.D. on 04/30/2017 at 16:40 . 12-lead ECG SR 70 incomplete LBBB, inferior lateral T-wave inversions, no acute peak T- waves (personally reviewed) Assessment & Plan 51-year-old woman presents with progressive diabetic foot ulcer and fluid/ electrolyte abnormalities related to missed dialysis # Hyperkalemia, acute, present on admission. Initial serum potassium 6.8. Received insulin, glucose and calcium gluconate. No evidence of peaked T waves. - Kayexalate 1 now - We will hold off on further calcium gluconate unless signs of EKG toxicity # Diabetic foot ulcer left foot. Acute on chronic. Probable osteomyelitis. ESR greater than 140. Clinical exam with necrotic fifth phalanx. Leukocytosis but no other signs of systemic sepsis. - Arterial Dopplers pending - Gen. surgery consult and podiatry consult - Nothing by mouth after midnight - Cultures to be obtained at surgery - Vancomycin and Zosyn at renally adjusted doses - Infectious disease consult - Pain management by mouth and/or IV # Right hand skin ulceration, chronic. Possible vascular steal syndrome. - Arterial Doppler evaluation - Antibiotic-coated verge as above # End stage renal disease, hemodialysis, chronic. hest x-ray suggests fluid overload the patient is asymptomatic with good oxygenation. - Oxygen as needed - No intravenous fluid resuscitation - Nephrology consult, to manage dialysis schedule # Type II diabetes mellitus, insulin-dependent, chronic. - Hemoglobin A1c - Continue usual basal insulin - 30 units at bedtime - Nutritional and correctional lispro Resolving, stable and are chronic problems: # Hypertension, chronic.Continue usual medications except reduce diuretics in light of acute infection # Headache, chronic migraine. Patient states the trip tans are not effective. She endorses rest and Vicodin. # History of CVA, chronic. Patient is on aspirin prophylaxis. Plan to continue # Asthma - when necessary bronchodilators Disposition: Patient is admitted to inpatient status expectation of greater than 2 nights hospitalization for management of diabetic foot ulcer and hyperkalemia. Addendum: I discussed with patient and at bedside regarding the importance of treating her hyperkalemia as it can lead to an acute arrhythmia which can lead to cardiac arrest with cardioplegia and would not respond to resuscitation potentially. I did explain at several times to them and they verbalize understanding of this and still refuse having Kayexalate and/or emergent dialysis tonight and agreed to have dialysis tomorrow. We will treat with IV bicarbonate, IV calcium gluconate in the absence of more definitive treatment overnight. VTE Prophylaxis: Sub-Q Heparin (Unfractionated) Resuscitation Status: CPR: Attempt Resuscitation Time spent 20 minutes Tegan Nichole MD Apr 30, 2017 22:16
[2017-04-30] MEDS ORDERED: Calcium GLUCO 10% (mEq) Inj 9.3 MEQ in Dextrose 5% 100 ML IV PRN (22:20)
[2017-04-30] MEDS ORDERED: Sodium Bicarb 8.4% Inj 150 MEQ in Dextrose 5% 1,000 ML IV SCH (22:20)
--- NOTE | 2017-04-30 22:36 | NUR ---
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 She stated that she did not want dialysis tonight but wanted to wait until tomorrow morning because "dialysis makes me hurt more." Her primary RN, Rebecca, gave pain management meds and I explained the level of Potassium could affect her heart. Dr Vincent explained the severity of her potassium level and she stated that she did not want dialysis tonight. Pt also refused Kayexalate. Dialysis set up removed from machine and wasted, machine disinfected and removed from room. Dr Stuart notified
[2017-04-30] MEDS ORDERED: Insulin Human REGular 300 Unit/3 mL Inj SUBQ PRN (22:55)
[2017-04-30] MEDS ORDERED: Albuterol 2.5 mg/3 mL Inhalation Solution NEB PRN (22:55)
[2017-05-01] VITALS (10 sets, daily range): BP systolic 115–156; BP diastolic 48–78; PULSE 68–82; RESP 18–22; O2SAT 87–96
[2017-05-01] MEDS: Insulin GLARgine 100 Unit/mL Syringe SUBQ SCH ×2 (00:28→20:47)
--- NOTE | 2017-05-01 02:54 | CONS ---
[address] [address] CONSULTATION REPORT PATIENT: LARRY GRULLON : 1965 MR#: [id number] ADMIT: 04/30/2017 JOB ID: [id number] DATE OF SERVICE: 04/30/2017 CHIEF COMPLAINT/IDENTIFICATION: I have been asked to consult on this 51-year-old woman who is being admitted with infected left foot, regarding two issues of potential vascular disease. HISTORY OF PRESENT ILLNESS: The patient has an appointment on Sunday with Dr. Bacilio Frost for evaluation of possible left lower extremity inflow disease as she is having some problems with an ischemic toe on the left. She has been followed by Dr. Pardo. The patient is status post amputation of two toes on the left foot and now has developed a nonhealing infection of the fifth toe on the left foot. The patient was seen in the Podiatry Clinic today and sent directly to the emergency department for admission due to infection. The patient reports that she has stents in her heart and in her groin vessels, but upon review of her previous angiographies studies and procedures from 2014, it looks as if she did not have any significant inflow disease above the inguinal ligaments, but did have common femoral artery disease and superficial femoral artery disease that were treated with atherectomy and balloon angioplasty. As recently as December or January of this year she underwent radiologic evaluation by arterial duplex that was evaluated by Dr. Yeboah with feelings that the patient had no evidence of left lower extremity arterial insufficiency to the ankle. Regarding the symptoms of steal on her right hand, the patient has a right-sided AV fistula that was [place] in [address] Frost. She has dialyzed through this quite well, but recently notes that she has pain in her fingertips on the right hand, as well as small excoriations seen to scab over and heal slowly. The pain in her right hand is worse when she is on dialysis. She has not had any nonhealing ulcers on that right hand and does not describe right hand claudication. Significantly, regarding all of her vascular disease, the patient continues to smoke. She reports that the more she gets stressed the more she smokes. PAST MEDICAL HISTORY: 1. End-stage renal disease as above. 2. Coronary artery disease. 3. Status post CVA. 4. History of asthma. 5. History of type 2 diabetes. MEDICATIONS: Per med list, she has an extensive medication list, though does not appear to be on any anticoagulation other than aspirin 325 mg t.i.d. ALLERGIES: 1. ATENOLOL. 2. STATIN. 3. CLOPIDOGREL. 4. EZETIMIBE. SOCIAL HISTORY: As I stated above, the patient is a smoker. She lives with her family, three of her family members are in the room and I believe that I can smell smoke on all of them. REVIEW OF SYSTEMS: Per admission history and physical. PHYSICAL EXAMINATION: Overweight woman in no acute distress, though she seems restless. BMI is recorded at 39.7. She has central obesity. She is afebrile. Pulse is recorded in the 60s and 70s. Blood pressure is recorded at 167/86. Her sclerae are clear. Neck is supple. Heart and lungs are not examined. Her abdomen is protuberant. Right upper extremity has a palpable thrill and she has some Telfa dressings on her fingers. Her hand is warm to the touch. I have not taken down her dressings. The lower extremities reveal no edema, left foot dressing intact and I have not taken that down. I cannot palpate popliteal pulses. Her femoral pulses are difficult to evaluate given her body habitus, as well as her sensitivity to palpation. IMPRESSION AND PLAN: A 51-year-old woman being admitted to the Medicine Service for IV antibiotics, who appears to have two separate issues, though there is some possibility that they are related. Regarding her lower extremity, she has had a repeat arterial duplex today that appears to be quite similar to the one that she had earlier this year that demonstrates biphasic flow all the way down to the feet with flow and continuity down to the posterior tibial and anterior tibial vessels. Previous studies would not suggest that she has any significant inflow disease, but she is quite difficult to evaluate on physical examination, and my recommendations will include evaluation of her proximal arterial tree, as well she has a clinical picture consistent with arterial steal from her fistula with relative hand ischemia. Without the taking down her dressings it is hard to evaluate, but I guess there is some possibility that both of these issues are related from some sort of embolic phenomenon from shaggy proximal aorta. However, my overall impression is that she likely has small vessel disease and that her ongoing use of tobacco and exposure to secondhand smoke is likely the major contributing factor, as well as the greatest source for improvement with low risk intervention. Impression suggestion: I will discuss the case with Dr. Frost tomorrow, but my initial recommendation would be to obtain some noninvasive imaging of her aorta, either by MR or CT angiography, to make certain that she does not have inflow stenosis that would be amenable to some sort of a percutaneous dilation on the left. I think she should get an upper extremity arterial study looking for evidence of reversible flow in subclavian artery and steal from her fistula. If that is the case, either some sort of upper extremity bypassing or banding of her fistula would be warranted. Again, I will discuss both these issues with Dr. Frost prior to making any further recommendations.
[2017-05-01 04:55] LABS: BASOPHILS % (AUTO) 0.2 % (0-3); EOSINOPHILS % (AUTO) 1.8 % (0-5); MONOCYTES % (AUTO) 10.5 % (4-12); Mean Corpuscular Hemoglobin 30.9 pg (27.0-35.0); Mean Corpuscular Volume 100.3 fL (81-100); Platelet Count 334 bil/L (150-400)
[2017-05-01] MEDS ORDERED: Vancomycin Serum Trough XX ONE (05:00)
[2017-05-01] MEDS: Piperacillin-Tazo 3.375 Gm Inj 3.375 GM in Dextrose 5% Minibag Plus 50 ML IV SCH ×2 (07:35→18:53)
--- NOTE | 2017-05-01 07:42 | NUR ---
Arrival to floor from ED Pt. transfer for admission to Room 2030. Patient came tearful and indicated feeling anxious r/t being informed of dialysis as an inpatient and 10 pain in foot. Pt. stated she was refusing dialysis r/t to pain. Pain associated with acute illness, and the pain caused while undergoing dialysis. Educated pt regarding elevated potassium level (6.8), 4 mg Morphine given for pain control. MD ordered Kayexalate, pt. refused. MD (Dr. Dsouza) notified of pt. refusals, arrived to [facility] patient at bedside. Dialysis nurse (Joana)at bedside and aware of pt. requests, dialysis plan on hold, on coming dayshift dialysis nurse and Layout Artist notified. Addendum: 05/01/17 at 0758 by JUSTIN SMITH RN Pain consistent throughout shift. Medication ordered for q 3' admin, and given prn. aware and updated on pt. status, requested NPO after midnight for possible surgical consult/procedure. Pt. informed, at bedside through night. Pt. rested with eyes closed intermittently. VSS. Tele: SR in 60's. Report received that Nephrology to readdress dialysis this AM. Report given to gm LOWRY.
[2017-05-01] MEDS: Insulin LISPRO 300 Unit/3 mL Inj SUBQ SCH ×4 (08:00→20:47)
[2017-05-01] MEDS: Heparin 5,000 Unit/mL Inj SUBQ SCH ×2 (08:02→20:46)
--- NOTE | 2017-05-01 09:08 | CONS ---
[address] [address] CONSULTATION REPORT PATIENT: LARRY GRULLON : 1965 MR#: [id number] ADMIT: 04/30/2017 JOB ID: [id number] DATE OF SERVICE: 05/01/2017 INFECTIOUS DISEASE CONSULTATION: I thank Dr. Marquise Sandhu for this consult. REASON FOR CONSULTATION: Infected left forefoot in diabetic patient. HISTORY OF PRESENT ILLNESS: The patient is a 51-year-old woman with overlapping series of serious medical problems. The patient has underlying diabetes with retinopathy, nephropathy and neuropathy. She also has extensive vascular disease including peripheral vascular disease and coronary artery disease. She is also AN end-stage renal disease patient though she does make some urine and is dialyzed on an ongoing basis using a right forearm fistula. The patient notes that she had her 3rd and 4th toes on the left foot removed some time ago and that has healed reasonably well, but over the past several weeks has developed progressive problems involving the 5th toe on the left foot. The amputation of the other two toes was approximately five months ago and for the past several weeks there has been ongoing problems with the lateral left foot including especially the 5th toe which has become reddened and tender. For this, she took a course of Augmentin which actually seemed to help quite a bit and then ran out of the Augmentin about one week ago. Since then, the left lateral forefoot tenderness and redness have gotten worse and the little toe on the left foot has actually turned black. She was admitted to evaluate this process and undergo possible surgery. In addition she has noticed over the past two months that the fingers on the right hand where her fistula is present, have become tender, red and there has been some skin breakdown. She reports that she has been told she has a steal phenomenon and this may need to be corrected. Despite these ongoing problems with her left foot and right hand, the patient reports no fevers, chills or sweats. She has a persistent headache which is not new or different. Some minor sore throat and a chronic smoker's dry cough "around chronic smoker's dry cough." No new GI or symptoms. Note that she does continue to make some urine. PAST MEDICAL HISTORY: 1. End-stage renal disease. 2. Coronary artery disease. 3. Status post cerebrovascular accident. 4. Type 2 diabetes. a. With neuropathy. b. Nephropathy. c. Retinopathy. 5. Peripheral vascular disease. 6. Asthma. 7. Ongoing smoking in spite of the above problems. SOCIAL HISTORY: The patient lives with her family on [address]. She is an ongoing pack-a-day smoker. Does not drink alcohol. She was born and raised in [facility]. She never left. FAMILY HISTORY: Negative for tuberculosis in first degree relatives but positive for diabetes. REVIEW OF SYSTEMS: Was done. The patient reports she has intermittent headaches. These have not changed in frequency recently. She also notes she has had progressively declining "terrible" vision which has been declining at a steady pace. She notes she has very poor dentition and some of her few remaining teeth are painful. She has mild sore throat which is chronic. She denies stiff neck. She has minimal shortness of breath with exertion and some dry cough specially in the mornings. No chest pain. No recent nausea, vomiting or diarrhea. She does make some urine though not enough and she is a dialysis patient, but she does make some urine. No dysuria, urgency, or frequency are noted. She has chronic pain in her left foot and it has become worse recently since the ending of the Augmentin therapy and the increasing erythema of the left foot. The remainder of the review of systems is negative. PHYSICAL EXAMINATION: Reveals a chronically ill woman who looks much older than 51. Temperature is 36.6, pulse 70, respiratory rate 18, blood pressure 138/74, saturating 90%-96% on room air. She is in no acute distress at this time. Head without trauma. No temporal wasting. Eyes without conjunctivitis. Oral cavity notable for just a few remaining teeth and these are in poor condition. No obvious gingivitis or pharyngitis. Neck is reasonably supple without adenopathy. Lungs: Scattered wheezes. Cardiac tones: Regular rate and rhythm without murmur. There is a fistula in the right forearm with a good thrill. Unfortunately, she has bandages over her fingers on that right hand except the thumb. She reports there is ulcers, redness and pain present there and she does not wish those Telfa dressings removed at this time. The left upper extremity is benign. The patient's abdomen is soft and nontender without organomegaly. There is no suprapubic fullness or significant adenopathy. The patient's right lower extremity is notable for mild erythema or erythema around the 2nd and 3rd toes but these do not appear grossly infected. There are diminished pulses on both of her feet and I cannot appreciate much in the way of dorsal pedal or posterior tibial pulses on either foot. Capillary refill is delayed. On the left foot there is missing 2nd and 3rd toes and the entire lateral forefoot is erythematous and mildly tender. The 2nd and 3rd toes have been removed and the base of those toe areas is erythematous without purulence. The left 5th toe was grossly necrotic and has a foul odor consistent with anaerobic infection or necrotic tissue. She does have sensation in both feet but diminished. No obvious purulence is seen around that left foot erythema area. There is no evidence for synovitis. No skin rash is seen anywhere except on the left foot. LABORATORY STUDIES: Include white count 14,000 yesterday when she came in, now 10,000. Sed rate is greater than 140 but it has been for months according to values in the computer. Creatinine 8.03, potassium 6.3. LFTs normal. Albumin 3. Blood cultures are negative. Chest x-ray is basically clear and that is my interpretation is I saw there may be some degree of mild pulmonary edema but is quite subtle. That is the radiologist's opinion. The right arm arterial study shows that there is a steal phenomena arising from the fistula. The ultrasound of the left lower extremity artery shows no significant disease involving the femoral arteries, popliteal artery or posterior tibial artery. IMPRESSION: This patient has obviously ischemic and infected left lateral forefoot with a completely necrotic left 5th toe. Osteomyelitis of that toe seems apparent as there is markel necrosis of the toe and I wonder about the viability of the other tissues of the left lateral forefoot. We do not have any cultures at this point, there is nothing really there to culture from the foot though I anticipate there will be debridement and amputation forthcoming fairly soon and hopefully will get some good cultures at that time. I note the patient has been started on vanc and Zosyn and I am a bit concerned about that as a nephrotoxic regimen as the patient does in fact still have some reasonable urine output and would be unfortunate to lose that in a patient who is not always entirely compliant with dialysis according to the notes in the chart. RECOMMENDATION: 1. MRSA screen of the nares. If this is negative, I would stop the vanco. 2. X-ray of the left foot will be done to look for evidence of gas or other obvious destruction. 3. Debridement of the foot with appropriate cultures is certainly indicated in the near future. 4. The fistula in the right arm will likely need revision to reverse the ongoing steal syndrome and ischemia of the right hand. 5. Note that I will be out of town for the next week or so, returning to work May 08 likely be reached by telephone about this or any other patient.
--- NOTE | 2017-05-01 09:10 | PROG NOTE ---
[address] [address] PROGRESS NOTE PATIENT: LARRY GRULLON : 1965 MR#: [id number] ADMIT: 04/30/2017 JOB ID: [id number] DATE: 05/01/2017 SUBJECTIVE: The patient is seen in followup consultation. Per chart notes, she refused dialysis last night. According to the patient, she was just too tired and anticipates having dialysis this morning. Her symptoms remain the same regarding her foot and her hand. OBJECTIVE: I have taken down her dressings today. She does have areas of superficial skin loss and scabbing on the top of her three middle fingers on the right hand consistent with chronic ischemia. Her left 5th toe appears threatened but without wet gangrene, and there is minimal erythema in the proximal forefoot. Labs show a potassium of 6.3 this morning. IMPRESSION AND PLAN: I do believe that she does have symptomatic steal syndrome in her right hand. She had an arterial Doppler that showed retrograde flow on the radial artery. I have discussed the case with Dr. Frost who will see the patient. Most likely, she can have this addressed by ligation of the distal radial artery. Timing will be per Dr. Frost. Currently, she is n.p.o. for unclear reasons but it is possible that we will address this today. Regarding her left lower extremity, I do think she needs some sort of an aortogram, either contrast or MR study. Dr. Frost plans to see the patient today, and we will move ahead with ordering that study after dialysis.
--- NOTE | 2017-05-01 09:55 | DRSVH ---
PROCEDURE: X-RAY LEFT FOOT COMPLETE, MINIMUM THREE VIEWS ([id number]) INDICATIONS: Osteo/,Gas? TECHNIQUE: 3 views of the foot were acquired. COMPARISON: [facility], CR, XR FOOT 3VW LT, 11/16/2016, 16:41. FINDINGS: Bones: Interval amputation through the mid portions of the proximal left third and fourth phalanges. No acute fractures. No plain film evidence of osteomyelitis. Osteopenia. Normal left foot alignment. Soft tissues: No tibiotalar joint effusion. Achilles tendon appears normal. Extensive soft tissue calcification. IMPRESSION: 1. No plain film evidence of osteomyelitis. If there is clinical concern for osteomyelitis consider a n MRI with and without contrast. 2. Interval surgical resection through the proximal left third and fourth phalanges. Dictated by: Papito Grover M.D. on 05/01/2017 at 9:51 Approved by: Papito Grover M.D. on 05/01/2017 at 9:54
[2017-05-01] MEDS ORDERED: Lidocaine-Prilo 2.5-2.5% 30 Gm Cream TOPICAL SCH (10:20)
[2017-05-01] MEDS ORDERED: Lidocaine 5% 35.5 Gm Ointment TOPICAL PRN (11:00)
--- NOTE | 2017-05-01 12:14 | NUR ---
Social Work: Initial Assessment/Multidisciplinary Rounds D: Per EMR review, pt is a 51 year old female admitted for ESRD, Hyperkalemia. Pt is Medicare with [facility] supplement; pt has no LTC or VA Benefits. PCP is not listed- pt followed by nephrology as an outpatient. Advanced directives not on file- pt provided with information. Readmit score not entered at this time. Pt discussed in multidisciplinary rounds. Pt will likely require surgery for her foot infection. Pt also requires dialysis which she will receive today. Capacity for self-care addressed; no concerns identified and discharge needs are unknown at this time. FOREST ENGINEER met with the patient at bedside. Sw role explained, contact information and d/c planning checklist provided. See initial assessment. Pt lives in a 5th wheel trailer with her spouse on [address] with 3 steps to enter. Pt owns a w/c, walker and cane which she uses as needed. Pt states that she does not drive and relies on her spouse for transportation. The patient has never had HH or skilled rehab/nursing. Pt completed dialysis at [facility] [place]. A: Pt who lives with her spouse on [address]. P: Evolving; FOREST ENGINEER to continue to follow to assess for discharge and unmet needs. TG Sung Addendum: 05/01/17 at 1219 by CHELI CASTILLO Amended: Links added.
[2017-05-01] MEDS ORDERED: EZET10TA27 PO (13:12)
[2017-05-01] MEDS ORDERED: ASPI-973 PO (13:12)
[2017-05-01] MEDS ORDERED: AMLO5TAB2 PO (13:12)
[2017-05-01] MEDS ORDERED: CALC667T5 PO (13:12)
[2017-05-01] MEDS ORDERED: LOSA25TA21 PO (13:12)
--- NOTE | 2017-05-01 13:14 | NUR ---
Inpatient Wound Nurse Patient seen for Dialysis Steal wounds on first, second, and third fingers of R hand and non-healing L foot wound. Finger wounds were darkened areas of non-healing tissue, brown to beefy red in places, no truly granulating tissue was observed; tissue is dry and solid but appears that it would crack and drain with minimal trauma or full flexing of hand. Wounds were covered with Adaptic and nonstick gauze. Patient stated that wounds are painful. L foot healing amputation sites at toes three and four. Fifth toe is black and dusky, moist in places. Great and second toe are cool to touch. A red band is noted midfoot that encircles foot on dorsum and plantar surface. Fifth toe and healing sockets of third and fourth toe covered with Adaptic and nonstick gauze, then wrapped with ABD, Kerlix, and blue surgical bootie. CWON will follow, awaiting further wound care instructions resultant of surgical procedures likely to occur over next few days.
--- NOTE | 2017-05-01 13:18 | PROG NOTE ---
[address] [address] PROGRESS NOTE PATIENT: LARRY GRULLON : 1965 MR#: [id number] ADMIT: 04/30/2017 JOB ID: [id number] DATE: 05/01/2017 Dr. Chavez and I saw the patient later this morning together. Two and one-half years ago, I created a right radiocephalic fistula. It has functioned well as a fistula but she has developed ulceration on her right fingers. She also has developed acral ulceration of her left foot and has undergone amputation of her left 3rd and 4th toes and now has a gangrenous left 5th toe. Yesterday, she had a duplex exam of her right upper extremity and her left lower extremity. The right upper extremity duplex showed reversal of flow in the right radial artery. The ulnar artery was only described proximally but demonstrated antegrade flow. Her left lower extremity arterial duplex exam shows normal velocities through the popliteal artery. There posterior tibial also appeared normal. She has continued to smoke. She is dialyzed three times a week. She is scheduled to be dialyzed later today. EXAMINATION: Right upper extremity: She has a ulceration on her index, middle, and ring fingers on the dorsal surface. She has normal sensation but is hyperesthetic. She has a well functioning right radiocephalic fistula. With a Doppler, I could not identify a palmar arch but she does have a three component Doppler signal of the ulnar at the wrist. With occlusion of the radial artery distal to the fistula or occlusion of the fistula itself, I still cannot identify a palmar arch by Doppler. She has biphasic Doppler signals of her left dorsalis pedis and posterior tibial arteries, but there does appear to be the beginnings of demarcation of effective arterial flow in the left mid foot. IMPRESSION: Right hand ulceration and steal phenomenon. She does clinically and by duplex exam have steal through her fistula. The question is, what is going to improve flow to her hand. The typical thing to do is to ligate the radial artery distal to the fistula, but if the ulnar artery does not make any contribution to her right hand, that will not be of any benefit, and then in that case, she would need to have the fistula ligated. I have discussed with Radiology repeating the duplex exam. The idea is to see if a palmar arch can be identified. If it cannot be, then she is going to need an angiogram of her right upper extremity to identify if she does have an intact palmar arch. Regarding her left foot, she does need to get a CT aortogram and runoff. By physical examination and by duplex there is likely no intervention that will improve blood flow to her foot. Dr. Chavez did raise the appropriate question of whether she is embolizing to both her right hand and her left foot. That would obviously have to come from a cardiac or proximal aortic source. Time spent with patient, Dr. Chavez, Radiology and in coordination of care, one hour.
--- NOTE | 2017-05-01 14:05 | PCM.CHPMED ---
Subjective Date of Service: May 01, 2017 Primary Physician: Admitting Physician: Michael Sandhu MD Primary Care Physician: Rukhsana Triplett MD Attending Physician: Michael Sandhu MD Chief Complaint: Chief Complaint: ESRD on HD History of Present Illness: Ms. Robles is a 51-year-old female with past medical history of end-stage renal disease on hemodialysis, HTN, diabetes with retinopathy, neuropathy and nephropathy, extensive peripheral vascular and coronary artery disease, presented to the ED secondary to progressively worsening nonhealing left foot and right upper extremity digit wounds. She seems hemodialysis on Sunday and Sunday and was unable to complete her dialysis yesterday 04/30/2017 secondary to chronic extremity pain. Nephrology consult to manage hemodialysis and electrolyte disturbances. After admission to PCU patient was scheduled to receive emergent dialysis treatment which she refused stating that undergoing the treatment was "too painful. She also refused Kayexalate despite being warned against this secondary to hyperkalemia. Patient was confrontational to hospital staff and continued to refuse treatment. Today during interview patient states right hand/digit pain as well as left foot pain which radiates to the tibial area. She does not state she has any chest pain or shortness of breath though states there is some abdominal fullness. She states she missed her dialysis appointment because she does not like undergoing dialysis treatment stating that it hurts though she is willing to undergo treatment today. PMH Past Medical History End-stage renal disease. Coronary artery disease. CVA Type 2 diabetes. With neuropathy. Nephropathy. Retinopathy. Peripheral vascular disease. Asthma. Tobacco dependence Bedside Blood Glucose: 71 Surgical History Shunt R forearm Bilateral oophorectomy Cardiac stents 06/29/15 Reports: , Hysterectomy Reports: Tubal ligation Home Medications Albuterol/ipratropium inhaler when necessary Amlodipine 5 mg at bedtime when necessary Augmentin 875/125 (completed course recently) Aspirin 325 mg 3 times a day when necessary Carvedilol 25 mg twice a day Calcium acetate 667 mg 3 times a day Cholecalciferol 50,000 units weekly Furosemide 80 mg at bedtime Vicodin one tablet by mouth 4 times a day when necessary Glargine insulin 30 units at bedtime Regular insulin 3-6 units 3 times a day W am Lisinopril 5 mg at bedtime Lorazepam 0.5 mg 3 times a day Metolazone 5 mg every DHS Multivitamin Ranitidine 150 twice a day Kayexalate 15 g 3 times per week Sumatriptan when necessary Allergies: Coded Allergies: atenolol (Verified Adverse Reaction, Severe, PROFOUND HYPOTENSION, 11/16/16) Hxlbqdn-Ruq-Gri Reductase Inhibitor (Verified Adverse Reaction, Intermediate, Muscle Pain/Weakness, 11/16/16) clopidogrel (Verified Adverse Reaction, Intermediate, Bleeding, 11/16/16) ezetimibe (Verified Adverse Reaction, Intermediate, Muscle Pain/Muscle Weakness, 11/16/16) Family History Family History Mother colon cancer, several relatives with COPD. Type II diabetes mellitus. Social History Hx Alcohol Use: NoHx Substance Use: NoHx Tobacco Use: Yes Smoking Status: Current Every Day Smoker Living Arrangement: with Family Exam Vital Signs Vital Sign - Last Date Time Temp Pulse Resp B/P Pulse Ox O2 Delivery O2 Flow Rate FiO2 05/01/17 13:01 36.6 73 18 140/64 91 Room Air 04/30/17 20:04 2 Intake and Output 04/30/17 04/30/17 05/01/17 Cumulative From/Thru 15:00 23:00 07:00 04/30/17 14:02 - 05/01/17 04:47 Intake Total 250 ml 500 ml 750 ml Balance 250 ml 500 ml 750 ml Intake IV Total 250 ml 500 ml 750 ml General: Awake and alert laying in hospital bed in no acute distress, well- developed, well-nourished, appropriately interactive HEENT: Normocephalic, atraumatic. External ears without defect. Pupils equal, round, and reactive to light and accommodation. Moist mucosa, poor dentition many missing teeth Neck: Supple with full range of motion. No jugular venous distension. Cardiovascular: Regular rate and rhythm with no murmurs, rubs, or gallops appreciated Pulmonary: Diffuse wheezing upper anterior lobes. No use of accessory muscles, good air movement Abdomen: Soft, nontender to palpation 4 quadrants Extremities: Right forearm fistula with good thrill. Right upper extremity digits covered with bandages, middle finger bandage removed show redness and excoriation which appears to be chronic. Left foot missing second and third toes with necrosis of one of her remaining toes Psychiatric: Flat affect. Alert and oriented to person, place, and time. Lab and Diagnostics Result Diagram: 05/01/17 0435 05/01/17 0435 X-Rays, CTs and MRIs . X-RAY CHEST ONE VIEW, PORTABLE IMPRESSION: Suspect mild pulmonary edema, heart size at the upper limits of normal. Dictated by: Kiko Ferris M.D. on 04/30/2017 US DUPLEX DOPPLER OF UNILATERAL ARM ARTERIES, RIGHT IMPRESSION: 1. Fistula stealing from right radial artery with reversal of flow in the right radial artery. 2. Normal antegrade flow noted in the right ulnar artery. Dictated by: Heydi Solorzano MD, PhD on 04/30/2017 US DUPLEX DOPPLER UNILATERAL LEG ARTERIES, LEFT IMPRESSION: 1. Hemodynamically significant atherosclerotic disease involving the anterior tibial artery. 2. No hemodynamically significant disease involving the femoral arteries, popliteal artery or posterior tibial artery. Dictated by: Heydi Solorzano MD, PhD on 04/30/2017 X-RAY LEFT FOOT COMPLETE, MINIMUM THREE VIEWS IMPRESSION: 1. No plain film evidence of osteomyelitis. If there is clinical concern for osteomyelitis consider an MRI with and without contrast. 2. Interval surgical resection through the proximal left third and fourth phalanges. Dictated by: Papito Grover M.D. on 05/01/2017 Assessment & Plan Assessment . End Stage Renal Disease on hemodialysis, noncompliance -Hold IV fluids -Dialysis scheduled for today 05/01/2017 Hyperkalemia -Initial serum potassium 6.8 -Received insulin, glucose and calcium gluconate. No evidence of peaked T waves on EKG -Refused Kayexalate -Dialysis as above Diabetes mellitus type II insulin-dependent -A1c pending -Insulin management by primary team Hypertension -Consider discontinuation of KRIS inhibitor and beta renee secondary to hyperkalemia as above Suspected steal syndrome - We will consult Dr. Frost for his opinion. Patient was seen and examined. Case discussed with Dr. Bourgeois. Agree as detailed above. Jackie Stuart MD Problems: Pain Evaluation: Adequate Pain Control VTE Prophylaxis: Sub-Q Heparin (Unfractionated) Resuscitation Status: CPR: Attempt Resuscitation DASIA BOURGEOIS DO May 01, 2017 13:31 Rukhsana Triplett MD May 02, 2017 12:10
--- NOTE | 2017-05-01 14:21 | NUR ---
NON COMPLIANCE/DIALYSIS/PAIN Patient refusing Kayexalate with K+ of 6.3, education done on medication. Patient refused am dialysis due to not having topical Lidocaine, new order for Lidocaine received and applied to patient. Patient off to dialysis at 1330 room #244/1 report given to Romina LOWRYreferral and information aide nurse. Patient c/o foot and hand pain, 4mg MS Q3 given to control pain. This am Nephrology, wound care, infection specialist, and surgery in to visit patient in addition to hospitalist. Plan to u/s right arm to test profusion in relation to steal syndrome. Foot Xray (-) for osteomyelitis.
--- NOTE | 2017-05-01 16:12 | NUR ---
Hemodialysis note 3hr tx ordered, pt will only dialyze 2hrs, "get terrible H/A if I dialyze longer". Dr Stuart aware no fluid removed, 46.7L processed VSS, see DTR for addn'l VS
--- NOTE | 2017-05-01 17:18 | PCM.PNMED ---
Subjective Date of Service May 01, 2017 Subjective Overnight the patient declined dialysis although her potassium was elevated above 6. Her right hand pain continues to bother her and surgery is evaluating today. Her left foot is wrapped and was evaluated this morning by Dr. marin. She denies ongoing fevers, chills, or signs of systemic disease. Exam Vital Signs Vital Sign - Last Date Time Temp Pulse Resp B/P Pulse Ox O2 Delivery O2 Flow Rate FiO2 05/01/17 14:10 68 05/01/17 13:01 36.6 18 140/64 91 Room Air 04/30/17 20:04 2 Intake and Output 04/30/17 04/30/17 05/01/17 Cumulative From/Thru 15:00 23:00 07:00 04/30/17 14:02 - 05/01/17 04:47 Intake Total 250 ml 500 ml 750 ml Balance 250 ml 500 ml 750 ml Intake IV Total 250 ml 500 ml 750 ml Exam General: Awake and alert obese, no acute distress Cardiovascular: Regular rate and rhythm with no murmurs Pulmonary: CTA bilaterally with mild wheezing Abdomen: Soft, nontender Extremities: Right forearm fistula with good thrill. Right upper extremity digits covered with bandages, middle finger bandage removed show redness and excoriation which appears to be chronic. Left foot missing second and third toes with necrosis of one of her fifth toe Psychiatric: Flat affect. Alert and oriented to person, place, and time. IVs and Medications Medications Reviewed: Medications were reviewed in detail Lab and Diagnostics Result Diagram: 05/01/17 0435 05/01/17 0435 X-Rays, CTs and MRIs PROCEDURE: X-RAY CHEST ONE VIEW, PORTABLE ([id number]) IMPRESSION: Suspect mild pulmonary edema, heart size at the upper limits of normal. Dictated by: Kiko Ferris M.D. on 04/30/2017 at 16:40 . 12-lead ECG SR 70 incomplete LBBB, inferior lateral T-wave inversions, no acute peak T- waves (personally reviewed) Assessment & Plan 51-year-old woman presents with progressive diabetic foot ulcer and fluid/ electrolyte abnormalities related to missed dialysis Hyperkalemia, acute, present on admission. Initial serum potassium 6.8. Received insulin, glucose and calcium gluconate. No evidence of peaked T waves. - Kayexalate 1 was refused by patient - We will hold off on further calcium gluconate unless signs of EKG toxicity - Dialysis for 2 hours today Diabetic foot ulcer left foot. Acute on chronic. Likely osteomyelitis. ESR greater than 140. Clinical exam with necrotic fifth phalanx. Leukocytosis but no other signs of systemic sepsis. - Arterial Dopplers pending -Cultures to be obtained at time of debridement -Vancomycin and Zosyn at renally adjusted doses -Dr. Madison was able to evaluate the patient prior to leaving; recommends vancomycin and Zosyn until MRSA screen, as well as x-ray of the left foot -Pain management by mouth and/or IV -CT angio aortogram with runoff at 1000 tomorrow with dialysis scheduled for early afternoon; discussed with nephrology Right hand skin ulceration second to vascular steal syndrome, chronic. - Arterial Doppler shows fistula stealing from right radial artery - Repeat Doppler evaluation per Dr. Frost of surgery was already placed in order - Antibiotics as above End stage renal disease, hemodialysis, chronic. Chest x-ray suggests fluid overload the patient is asymptomatic with good oxygenation. - Oxygen as needed - No intravenous fluid resuscitation - Nephrology consult - Patient dialyzing today - Patient requires lidocaine ointment prior to dialysis were ordered negative Type II diabetes mellitus, insulin-dependent, chronic. - Hemoglobin A1c - Continue usual basal insulin - 30 units at bedtime - Nutritional and correctional lispro Resolving, stable and are chronic problems: Hypertension, chronic.Continue usual medications except reduce diuretics in light of acute infection Headache, chronic migraine. Patient states the trip tans are not effective. She endorses rest and Vicodin. History of CVA, chronic. Patient is on aspirin prophylaxis. Plan to continue Asthma - when necessary bronchodilators Disposition: Unknown timeline for discharge VTE Prophylaxis: Sub-Q Heparin (Unfractionated) Resuscitation Status: CPR: Attempt Resuscitation Time spent 45 minutes Attending Statement I interviewed and examined the patient on rounds today. I agree with the assessment and plan as stated above. Rajan Linton DO May 01, 2017 17:18 Michael Sandhu MD May 01, 2017 18:44
[2017-05-02] VITALS (11 sets, daily range): BP systolic 95–128; BP diastolic 58–77; PULSE 64–88; RESP 16–24; O2SAT 92–100
[2017-05-02] MEDS: Ondansetron 2 mg/mL 2 mL Inj IVPUSH PRN ×3 (00:25→10:59)
--- NOTE | 2017-05-02 03:35 | NUR ---
PAIN/FEVER Patient complained of 10/10 pain each time she was assessed. Morphine given for pain. Had some mild nausea, resolved with zofran. Fever at 38.6 in the evening. MD made aware and orders for BCs obtained. Patient irritated by blood draws and interrogated the pharmaceutical laboratory technician about the procedure of obtaining BCs. Patient appears to be sleeping well most of the night. Will continue to monitor. Addendum: 05/02/17 at 0650 by DINO BAKER RN Patient awoke in pool of sweat, reporting that she did not feel well, was SOB. Vss and BG WNL. CXR, duonebs, and labs ordered. Patient placed on oxygen and helped back to bed. Continuing to monitor.
[2017-05-02] MEDS: Piperacillin-Tazo 3.375 Gm Inj 3.375 GM in Dextrose 5% Minibag Plus 50 ML IV SCH ×2 (04:28→17:37)
[2017-05-02] MEDS ORDERED: Albuterol-Ipratropium 3 mL Inhalation Solution NEB ONE (05:10)
[2017-05-02 06:05] LABS: BASOPHILS % (AUTO) 0.1 % (0-3); EOSINOPHILS % (AUTO) 0.1 % (0-5); MONOCYTES % (AUTO) 6.9 % (4-12); Mean Corpuscular Volume 99.1 fL (81-100); NEUTROPHILS % (AUTO) 89.6 % (40-74); Platelet Count 326 bil/L (150-400)
[2017-05-02] MEDS: Insulin LISPRO 300 Unit/3 mL Inj SUBQ SCH ×4 (08:00→22:00)
--- NOTE | 2017-05-02 08:59 | DRSVH ---
PROCEDURE: X-RAY CHEST ONE VIEW ([id number]) INDICATIONS: increased O2 needs, fever TECHNIQUE: One view of the chest was acquired. COMPARISON: None. FINDINGS: Surgical changes and devices: None. Lungs and pleura: No pleural effusions or pneumothorax. Bibasilar interstitial pulmonary opacities c onsistent with atelectasis, scarring/fibrosis, or early infection. Prominent pulmonary venous vascula rity . Mediastinum: Mediastinal contours appear normal. Heart size is prominent. Bones and chest wall: No suspicious bony lesions. Overlying soft tissues appear unremarkable. IMPRESSION: 1. Bibasilar pulmonary opacities may represent infection, edema or scarring. 2. Prominent pulmonary venous vascularity consistent with early mild fluid imbalance. Dictated by: Papito Grover M.D. on 05/02/2017 at 8:56 Approved by: Papito Grover M.D. on 05/02/2017 at 8:58
[2017-05-02] MEDS: Heparin 5,000 Unit/mL Inj SUBQ SCH ×2 (09:56→22:23)
[2017-05-02] MEDS ORDERED: 0.9% Sodium Chloride 100 ML ONE (10:53)
--- NOTE | 2017-05-02 12:17 | NUR ---
Inpatient Wound Nurse Conversation completed with patient's primary nurse who stated that patient is, at the moment, declining dialysis but is likely to change her mind later today. The dressings applied to R hand and L foot are clean, dry, and intact. Surgeons and diagnostic team are continuing to plan care. CWON will be available for dressing changes PRN today, anticipate changing dressings tomorrow unless other interventions are priority (surgery).
--- NOTE | 2017-05-02 12:48 | PCM.PNSURG ---
Subjective Date of Service: May 02, 2017 Date of Service: May 02, 2017 Visit Information: Reason for Visit Esrd, Hyperkalemia Surgery/Surgery Date Post-Op Day # Date of Admission: Apr 30, 2017 at 19:09 Hospital Day # 3 Subjective: Dialysis completed last night. Patient recently had an ultrasound Doppler repeated of the right upper extremity and CT aortogram of the left lower extremity this morning. She continues to have associated pain, weakness, & loss of sensation in her related extremities. Pain Management: Continued Pain Issues Neurological: Weakness, Numbness, Tingling Objective Vital Sign- Last 8 Hours Date Time Temp Pulse Resp B/P Pulse Ox O2 Delivery O2 Flow Rate FiO2 05/02/17 10:29 71 05/02/17 09:46 Supplement Oxygen 05/02/17 09:46 36.8 69 16 120/71 95 Nasal Cannula 3.00 05/02/17 05:34 71 16 92 Nasal Cannula 3.00 Intake and Output- Last 8 Hour 05/02/17 Cumulative From/Thru 07:00 04/30/17 14:02 - 05/02/17 06:44 Intake Total 100 ml 1120 ml Balance 100 ml 1120 ml Intake Oral 120 ml IV Total 100 ml 1000 ml # Voids 0 General: Alert, No Acute Distress Lungs: Clear to Auscultation Heart: Exam Unremarkable Abdomen: Benign Extremities: Distal Pulses Absent (weak), Other (Palpable thrill of right upper extremity fistula, with ulcerations of the index middle and ring fingers on the dorsal aspect, & dorsal aspect of the left foot and fifth toe with dressings. Amputation of the left third and fourth toes.) Neuro: Normal Speech Result Diagram: 05/02/17 0550 05/02/17 0550 Diagnostics: [place]. [address] PATIENT NAME: LARRY GRULLON : 1965 GENDER: [employer] [place] EXAM DATE: 05/02/2017 10:37 ORDERED FROM: [facility] ORDERING PHYSICIAN: TYLER SCHMIDT CC: CARLA RUIZ CONTRAST: ISOVUE 300 145ML READING STATION ID: [id number] mGy: PROCEDURE: CT ANGIOGRAPHY OF THE AORTA WITH RUN-OFF WITH AND WITHOUT CONTRAST ([id number]) INDICATIONS: ischemic right foot TECHNIQUE: After the administration of intravenous contrast, 2 and 5 mm sections acquired from T12 to the feet, with optional delayed image acquisition from the knees to the feet. 3- dimensional maximum intensity projection (MIP) coronal and sagittal reformats, and/or 3- dimensional volume rendering reformatting was then performed. For radiation dose reduction, the following was used: automated exposure control. COMPARISON: [facility], [place], ANGIO AORTA WITH RUN, 02/09/2015, 7:23. FINDINGS: Image quality: Excellent. Extravascular tissues: There is a small low density right pleural effusion. There is mild atelectasis at the bilateral lung bases. The heart is enlarged. Heart size is normal. Liver and spleen are normal in size and enhancement. Gallbladder is unremarkable. Biliary system is non dilated. Pancreas enhances normally. No adrenal nodules. The bilateral kidneys are atrophic. Non opacified bowel loops demonstrate normal wall thickness and enhancement. The appendix is thin walled and gas filled. No free fluid or air. No retroperitoneal or mesenteric adenopathy. There is a subcentimeter fat containing ventral hernia. Bladder wall thickness is normal. No inguinal hernias or adenopathy. No suspicious bony lesions. No vertebral body compression fractures. Abdominal aorta: Dense atheromatous calcification is present throughout the abdominal aorta. The celiac axis and SMA are widely patent. The bilateral renal arteries are atrophic. The DELL is patent. No aortic aneurysm. Continued Report - Page 2 of 3 PATIENT NAME: LARRY GRULLON : 1965 GENDER: [employer] [place] EXAM DATE: 05/02/2017 10:37 ORDERED FROM: [facility] ORDERING PHYSICIAN: TYLER SCHMIDT CC: CARLA RUIZ CONTRAST: ISOVUE 300 145ML READING STATION ID: [id number] mGy: Right lower extremity: The right common iliac artery is patent with mild mural irregularity. The right external iliac artery is patent. Dense atheromatous calcification is present throughout the right internal iliac artery, which is patent. A focal dense calcification is present intraluminally within the right common femoral artery. There is likely trace flow around this dense calcification. The profunda is patent but heavily calcified. The right SFA demonstrates multiple focal moderate to high grade stenoses with diffuse atheromatous calcifications throughout. The popliteal artery is patent with multiple focal high-grade stenoses throughout. The right anterior tibial artery is patent to the level of the ankle. Multiple focal high-grade stenoses are present throughout the tibioperoneal trunk. The peroneal artery is patent to the level of the foot. The posterior tibial artery is patent to the level of the foot. Left lower extremity: The left common iliac artery is widely patent. The left internal iliac and external iliac arteries are patent with mild atheromatous calcification. The left common femoral artery is widely patent with mild mural irregularity. The profunda is patent. There are multiple focal high-grade stenoses throughout the left superficial femoral artery secondary to dense atheromatous calcifications. There is diffuse narrowing of the popliteal artery throughout secondary to dense atheromatous plaque and calcification. The anterior tibial artery is patent to the level of the distal ordoñez. The posterior tibial artery is patent to the foot with diffuse mural irregularity and dense atheromatous calcification. The peroneal artery is likely patent to the level of the foot with multifocal high-grade stenoses secondary to atheromatous calcifications. IMPRESSION: 1. Focal, dense intraluminal calcification of the right common femoral artery. An atherectomy was performed previously at this site. If the patient endorses recurrent symptoms of the right lower extremity, repeat atherectomy is recommended. Consider interventional radiology consultation. 2. Multifocal bilateral high-grade stenoses of the superficial femoral arteries. These are likely amenable to percutaneous angioplasty if clinically indicated to improve flow to the infrageniculate lower extremities. 3. Diffuse narrowing of the bilateral popliteal arteries secondary to dense atheromatous plaque and calcifications. 4. Diffuse multifocal narrowing and high-grade stenoses at the infrageniculate arteries bilaterally. There is 2 vessel bilateral lower extremity runoff. Continued Report - Page 3 of 3 PATIENT NAME: LARRY GRULLON : 1965 GENDER: [employer] [place] EXAM DATE: 05/02/2017 10:37 ORDERED FROM: [facility] ORDERING PHYSICIAN: TYLER SCHMIDT CC: CARLA RUIZ CONTRAST: ISOVUE 300 145ML READING STATION ID: [id number] mGy: Dictated by: Emi José M.D. on 05/02/2017 at 13:37 Approved by: Emi José M.D. on 05/02/2017 at 14:18 Assessment & Plan Impression Primary Diagnoses: 1. End-stage renal disease 2. RUE ulcers associated with steal syndrome- Review of repeat Doppler ultrasound study showed sullivan arch intact requiring ligation of the distal radial artery tomorrow. 3. LLE peripheral vascular disease with ulcer of the left foot & gangrene of the left fifth toe - Will likely need IR procedure for LLE Sunday Other Medical & Surgical History: Obesity Cerebrovascular disease Dyspnea Mitral stenosis Hypercholesterolemia Hypertension Leukocytosis Peripheral edema Chest pain Hyperlipidemia Diabetes mellitus History of diabetic ulcer of toe associated with diabetes mellitus Weakness Tobacco abuse Amputated toe of left foot History of pneumonia both lungs Problems: Plan 1. Change diet status to renal diet now 2. NPO after midnight 3. Ligation distal right radial artery tomorrow. 4. Likely IR procedure for LLE Sunday Pain Management: Morphine IV 2-4 mg every 3 hours when necessary VTE Prophylaxis: Sub-Q Heparin (Unfractionated) Resuscitation Status: CPR: Attempt Resuscitation Kiko Wasserman PA-C May 02, 2017 12:48
--- NOTE | 2017-05-02 13:53 | PCM.PNNEPH ---
DASIA BOURGEOIS DO 05/02/17 1352: Subjective Date of Service May 02, 2017 Subjective Patient received dialysis yesterday though only 2 hours instead of the prescribed 3-4. She stopped the treatment early secondary to reported headache. No fluid was removed. Throughout the night she complained of 10 out of 10 pain relieved somewhat with morphine. She had a fever spike of 38.6 blood cultures were taken. This morning patient was found to have an increase in her leukocytosis 18.6 from 10.4 yesterday with a left shift. A.m. labs showed normalization of potassium to 5.1 creatinine is trended down to 6.17 in the setting of ESRD on HD. ALT AST has increased significantly since yesterday. Patient is scheduled for additional imaging studies of her upper extremity and abdomen. She states she is not interested in future dialysis without increase in her pain medication. Exam Vital Signs Vital Sign - Last Date Time Temp Pulse Resp B/P Pulse Ox O2 Delivery O2 Flow Rate FiO2 05/02/17 13:03 37.0 68 18 111/66 92 Nasal Cannula 3.00 Intake and Output 05/01/17 05/01/17 05/02/17 Cumulative From/Thru 15:00 23:00 07:00 04/30/17 14:02 - 05/02/17 06:44 Intake Total 270 ml 100 ml 1120 ml Balance 270 ml 100 ml 1120 ml Intake Oral 120 ml 120 ml IV Total 150 ml 100 ml 1000 ml # Voids 0 0 Exam General: Awake and alert laying in hospital bed in no acute distress, well- developed, well-nourished, flat affect and somnolent HEENT: Normocephalic, atraumatic. External ears without defect. Pupils equal, round, and reactive to light and accommodation. Moist mucosa, poor dentition many missing teeth Neck: Supple with full range of motion. No jugular venous distension. Cardiovascular: Regular rate and rhythm with no murmurs, rubs, or gallops appreciated Pulmonary: Diffuse wheezing upper anterior lobes. No use of accessory muscles, good air movement Abdomen: Soft, nontender to palpation 4 quadrants Extremities: Right forearm fistula with good thrill. Right upper extremity digits covered with bandages, middle finger bandage removed show redness and excoriation which appears to be chronic. Left foot missing second and third toes with necrosis of one of her remaining toes Psychiatric: Flat affect. Alert and oriented to person, place, and time. IVs and Medications Medications Reviewed: Medications were reviewed in detail Lab and Diagnostics Result Diagram: 05/02/17 0550 05/02/17 0550 X-Rays, CTs and MRIs X-RAY CHEST ONE VIEW, PORTABLE IMPRESSION: Suspect mild pulmonary edema, heart size at the upper limits of normal. Dictated by: Kiko Ferris M.D. on 04/30/2017 X-RAY CHEST ONE VIEW IMPRESSION: 1. Bibasilar pulmonary opacities may represent infection, edema or scarring. 2. Prominent pulmonary venous vascularity consistent with early mild fluid imbalance. Dictated by: Papito Grover M.D. on 05/02/2017 12-lead ECG SR 70 incomplete LBBB, inferior lateral T-wave inversions, no acute peak T- waves (personally reviewed) Plan Impression End Stage Renal Disease on hemodialysis, noncompliance -Hold IV fluids -2 hours dialysis yesterday 05/01/2017, will repeat tomorrow 05/03/2070 Hyperkalemia -Initial serum potassium 6.8 -Received insulin, glucose and calcium gluconate. No evidence of peaked T waves on EKG -Refused Kayexalate -Dialysis as above -Potassium normalized to 5.1 today Diabetes mellitus type II insulin-dependent -A1c 7.2 -Insulin management by primary team Hypertension -Consider discontinuation of KRIS inhibitor and beta renee secondary to hyperkalemia as above Suspected steal syndrome - We will consult Dr. Frost for his opinion. Rukhsana Triplett MD 05/03/17 1500: Exam Lab and Diagnostics Result Diagram: 05/02/17 0550 05/02/17 0550 Plan Impression Pt was seen and examined. Case discussed with Dr. Bourgeois. Agree with assessment and plan as outlined above. Jackie Stuart MD. DASIA BOURGEOIS DO May 02, 2017 13:52 Rukhsana Triplett MD May 03, 2017 15:00
--- NOTE | 2017-05-02 14:20 | DRSVH ---
PROCEDURE: CT ANGIOGRAPHY OF THE AORTA WITH RUN-OFF WITH AND WITHOUT CONTRAST ([id number]) INDICATIONS: ischemic right foot TECHNIQUE: After the administration of intravenous contrast, 2 and 5 mm sections acquired from T12 to the feet, with optional delayed image acquisition from the knees to the feet. 3-dimensional maximum intensity projection (MIP) coronal and sagittal reformats, and/or 3-dimensional volume rendering reformatting w as then performed. For radiation dose reduction, the following was used: automated exposure control . COMPARISON: [facility], CT, ANGIO AORTA WITH RUN, 02/09/2015, 7:23. FINDINGS: Image quality: Excellent. Extravascular tissues: There is a small low density right pleural effusion. There is mild atelectasis at the bilateral lung bases. The heart is enlarged. Heart size is normal. Liver and spleen are nor mal in size and enhancement. Gallbladder is unremarkable. Biliary system is non dilated. Pancreas enhances normally. No adrenal nodules. The bilateral kidneys are atrophic. Non opacified bowel loops demonstrate normal wall thickness and enhancement. The appendix is thin walled and gas filled. No fr ee fluid or air. No retroperitoneal or mesenteric adenopathy. There is a subcentimeter fat containin g ventral hernia. Bladder wall thickness is normal. No inguinal hernias or adenopathy. No suspiciou s bony lesions. No vertebral body compression fractures. Abdominal aorta: Dense atheromatous calcification is present throughout the abdominal aorta. The jocelyn ac axis and SMA are widely patent. The bilateral renal arteries are atrophic. The DELL is patent. No a ortic aneurysm. Right lower extremity: The right common iliac artery is patent with mild mural irregularity. The righ t external iliac artery is patent. Dense atheromatous calcification is present throughout the right i nternal iliac artery, which is patent. A focal dense calcification is present intraluminally within t he right common femoral artery. There is likely trace flow around this dense calcification. The profu nda is patent but heavily calcified. The right SFA demonstrates multiple focal moderate to high grade stenoses with diffuse atheromatous calcifications throughout. The popliteal artery is patent with mu ltiple focal high-grade stenoses throughout. The right anterior tibial artery is patent to the level of the ankle. Multiple focal high-grade stenoses are present throughout the tibioperoneal trunk. The peroneal artery is patent to the level of the foot. The posterior tibial artery is patent to the leve l of the foot. Left lower extremity: The left common iliac artery is widely patent. The left internal iliac and exte rnal iliac arteries are patent with mild atheromatous calcification. The left common femoral artery i s widely patent with mild mural irregularity. The profunda is patent. There are multiple focal high-g rade stenoses throughout the left superficial femoral artery secondary to dense atheromatous calcific ations. There is diffuse narrowing of the popliteal artery throughout secondary to dense atheromatous plaque and calcification. The anterior tibial artery is patent to the level of the distal ordoñez. The posterior tibial artery is patent to the foot with diffuse mural irregularity and dense atheromatous calcification. The peroneal artery is likely patent to the level of the foot with multifocal high-gra de stenoses secondary to atheromatous calcifications. IMPRESSION: 1. Focal, dense intraluminal calcification of the right common femoral artery. An atherectomy was per formed previously at this site. If the patient endorses recurrent symptoms of the right lower extremi ty, repeat atherectomy is recommended. Consider interventional radiology consultation. 2. Multifocal bilateral high-grade stenoses of the superficial femoral arteries. These are likely arely nable to percutaneous angioplasty if clinically indicated to improve flow to the infrageniculate lowe r extremities. 3. Diffuse narrowing of the bilateral popliteal arteries secondary to dense atheromatous plaque and c alcifications. 4. Diffuse multifocal narrowing and high-grade stenoses at the infrageniculate arteries bilaterally. There is 2 vessel bilateral lower extremity runoff. Dictated by: Emi José M.D. on 05/02/2017 at 13:37 Approved by: Emi José M.D. on 05/02/2017 at 14:18
--- NOTE | 2017-05-02 15:42 | PCM.PNMED ---
Subjective Date of Service May 02, 2017 Subjective Pt underwent dialysis for 2 hours yesterday with resolution of her hyperkalemia. She is doing ok today. However, she complains about not eating food. So her brought in fast food because she "just doesn't want to follow the diabetic diet today." She also had a one time fever overnight and and increase in her white count. Exam Vital Signs Vital Sign - Last Date Time Temp Pulse Resp B/P Pulse Ox O2 Delivery O2 Flow Rate FiO2 05/02/17 13:03 37.0 68 18 111/66 92 Nasal Cannula 3.00 Intake and Output 05/01/17 05/01/17 05/02/17 Cumulative From/Thru 15:00 23:00 07:00 04/30/17 14:02 - 05/02/17 06:44 Intake Total 270 ml 100 ml 1120 ml Balance 270 ml 100 ml 1120 ml Intake Oral 120 ml 120 ml IV Total 150 ml 100 ml 1000 ml # Voids 0 0 Exam General: Awake and alert obese, no acute distress Cardiovascular: Regular rate and rhythm with no murmurs Pulmonary: CTA bilaterally with mild wheezing Abdomen: Soft, nontender Extremities: Right forearm fistula with good thrill. Right upper extremity digits covered with bandages, middle finger bandage removed show redness and excoriation which appears to be chronic. Left foot missing second and third toes with necrosis of one of her fifth toe Psychiatric: Flat affect. Alert and oriented to person, place, and time. IVs and Medications Medications Reviewed: Medications were reviewed in detail Lab and Diagnostics Result Diagram: 05/02/17 0550 05/02/17 0550 X-Rays, CTs and MRIs X-RAY CHEST ONE VIEW, PORTABLE IMPRESSION: Suspect mild pulmonary edema, heart size at the upper limits of normal. Dictated by: Kiko Ferris M.D. on 04/30/2017 X-RAY CHEST ONE VIEW IMPRESSION: 1. Bibasilar pulmonary opacities may represent infection, edema or scarring. 2. Prominent pulmonary venous vascularity consistent with early mild fluid imbalance. Dictated by: Papito Grover M.D. on 05/02/2017 12-lead ECG SR 70 incomplete LBBB, inferior lateral T-wave inversions, no acute peak T- waves (personally reviewed) Assessment & Plan 51-year-old woman presents with progressive diabetic foot ulcer and fluid/ electrolyte abnormalities related to missed dialysis Diabetic foot ulcer left foot. Acute on chronic. Likely osteomyelitis. ESR greater than 140. Clinical exam with necrotic fifth phalanx. Leukocytosis but no other signs of systemic sepsis. - Arterial Dopplers pending -Cultures to be obtained at time of debridement -Stopped Vancomycin due to MRSA neg -Continue Zosyn at renally adjusted doses -Pain management by mouth and/or IV -CT angio aortogram with runoff: radiology reported severe occlusion in LLE -Reportedly talking to Dr. Frost about plan going forward -Planning for surgery tomorrow -NPO at midnight Right hand skin ulceration second to vascular steal syndrome, chronic. - Arterial Doppler shows fistula stealing from right radial artery - Surgery is evaluating - Antibiotics as above End stage renal disease, hemodialysis, chronic. Chest x-ray suggests fluid overload the patient is asymptomatic with good oxygenation. - Oxygen as needed - No intravenous fluid resuscitation - Nephrology consult - Patient dialyzing today after getting contrast for aortic angiogram - Patient requires lidocaine ointment prior to dialysis were ordered negative Type II diabetes mellitus, insulin-dependent, chronic. - Hemoglobin A1c - Continue usual basal insulin - 30 units at bedtime - Nutritional and correctional lispro - Post op will consider moving to ggt is she is uncontrolled; currently doing great - 1 episode of hypoglycemia on lab work, but bedside BG checks were normal Resolving, stable and are chronic problems: Hyperkalemia, acute, present on admission. resolved Initial serum potassium 6.8. Received insulin, glucose and calcium gluconate. No evidence of peaked T waves. - Kayexalate 1 was refused by patient - We will hold off on further calcium gluconate unless signs of EKG toxicity - Dialysis for 2 hours today which resolved the problem Hypertension, chronic.Continue usual medications except reduce diuretics in light of acute infection Headache, chronic migraine. Patient states the trip tans are not effective. She endorses rest and Vicodin. History of CVA, chronic. Patient is on aspirin prophylaxis. Plan to continue; should not be on sumatriptan because she has this hx Asthma - when necessary bronchodilators Disposition: Unknown timeline for discharge VTE Prophylaxis: Sub-Q Heparin (Unfractionated) Resuscitation Status: CPR: Attempt Resuscitation Attending Statement The patient was seen and examined together with on May 02 and I agree with the history, exam findings, and plan as outlined in the note above. I did participate in all aspects of the services provided today, including documentation and the plan of care. The patient will continue on IV antibiotics for her ostial myelitis. She also has significant peripheral arterial disease and we will discuss the best vascular plan with Dr. Frost of general surgery. In addition we will continue to dialyze her and make plans for a revision of her fistula. Rajan Linton DO May 02, 2017 15:41 Evan Frost MD May 03, 2017 13:30
--- NOTE | 2017-05-02 16:17 | DRSVH ---
PROCEDURE: US DUPLEX DOPPLER OF UNILATERAL ARM ARTERIES, RIGHT INDICATIONS: right hand steal TECHNIQUE: Color and pulse Doppler interrogation was performed of right upper extremity arterial systems, with i mage documentation. COMPARISON: [facility], , US ARTERY ARM DUPLEX UNI RT, 04/30/2017, 17:10. FINDINGS: Right upper extremity: Subclavian artery (proximal): 114 cm/sec, with monophasic flow. Axillary artery: 196 cm/sec, with monophasic flow. Brachial artery (proximal): 269 cm/sec, with monophasic flow. Brachial artery (mid): 215 cm/sec, with monophasic flow. Brachial artery (distal): 182 cm/sec, with monophasic flow. Radial artery (proximal): 212 cm/sec, with monophasic flow. Radial artery (mid): 215 cm/sec, with monophasic flow. Radial artery (distal): Retrograde flow Ulnar artery (proximal): 135 cm/sec, with monophasic flow. Retrograde flow is visualized within the distal portion of the radial artery just peripheral to the a rteriovenous fistula. The more distal portion of the radial artery (at the base of the first metacarp al) demonstrates antegrade flow as expected. Pulido arch filling from the ulnar artery is demonstrated with occlusion of the distal radial artery at the base of the first metacarpal. IMPRESSION: 1. Retrograde flow in the radial artery just peripheral to the arteriovenous dialysis fistula. These findings are consistent with arterial steal. 2. Findings consistent with a patent palmar arch. Dictated by: Emi José M.D. on 05/02/2017 at 16:12 Approved by: Emi José M.D. on 05/02/2017 at 16:15
--- NOTE | 2017-05-02 16:44 | NUR ---
CT, Non-compliance 0840 - The CT department called and was given report in the patient's room. They asked if she would be given dialysis after as she would receive contract. Was about to say "yes" when the patient vigorously shook her head and said she would not go and have dialysis today. Informed CT of this. This nurse and her spoke with her afterwards trying to educate her on the importance of having her dialysis today, but she flat out refused. 0855 - Paged Yellow team to see if she needed to be NPO for any procedures today as the orders in her eChart were confusing. Spoke to Dr. Bourgeois from the renal team and he said to keep her NPO for now as she may be getting surgery today. He said he would try and contact the Surgical Team to find out if this would be the case. Informed him that she refused dialysis today. 0930 - Discussed her care with Dr. Frost and the rest of the multidisciplinary care team during morning rounds. Informed them that she was refusing dialysis. Dr. Frost acknowledged this information and also stated to keep her NPO until further notice. 1015 - Had noted with night club manager that some of the mixed antibiotic medication was still left in the vial and was unable to be made to go into the IV bag for administration. Pharmacist Kiko Seals, came by and was able to fix the situation. He said to run the rest of the solution with a piggyback of normal saline to dilute it. It wasn't started right away and she was preparing to go the CT. Once she got back it was hung and finished. 1025 - She left for CT via transporter and wheelchair. The Temporary Office Assistant was notified. 1030 - The Renal MD ordered a renal diet for her. Spoke to Santosh who said to keep her NPO diet instead as there was still a possibility of her going for surgery today. Dr. Linton from the surgical team stopped by and was updated on her care and refusal to have dialysis despite her receiving contrast. 1035 - Spoke to Alysia from Wound Therapy who said the she would hold off from changing her dressings today as she was having a few tests and her dressings were clean, dry, and intact. This nurse agreed with her. 1045 - She returned back to [facility] [address] and was settled back into her room. She received her ultrasound in the room shortly after. 1257 - Phone paged Dr. Frost as the patient was really wanting to eat and was anxious to know the surgical plan of care today. 1311 - There was no reply and so Dr. Frost was venu jarrett. He called back and said he still did not know, but that he would consult with Dr. Linton. The CT and ultrasound test results were still pending. Dr. Linton ordered a renal/diabetic diet and lunch was ordered for her. She ordered a fruit platter for lunch with sugar-free Jello. 1414 - Dr. Linton came by and was updated her care and non-compliance with her diet. 1447 - Spoke to ALEJANDRO Escalante on the phone who said that she would have a fistula surgery tomorrow in the afternoon with Dr. Vanda Frost and that she needed to be NPO after midnight. He said there may be a possibility of her going for surgery on Sunday for her foot. Care continues.
[2017-05-02] MEDS: HYDROcodone-APAP 5-325 mg Tablet PO PRN ×2 (17:48→22:23)
[2017-05-02] MEDS: Insulin GLARgine 100 Unit/mL Syringe SUBQ SCH (22:24)
[2017-05-03] VITALS (15 sets, daily range): BP systolic 97–146; BP diastolic 43–76; PULSE 61–106; RESP 15–22; O2SAT 93–98
[2017-05-03] MEDS: HYDROcodone-APAP 5-325 mg Tablet PO PRN ×4 (04:40→21:07)
[2017-05-03 04:42] LABS: BASOPHILS % (AUTO) 0.1 % (0-3); EOSINOPHILS % (AUTO) 0.9 % (0-5); MONOCYTES % (AUTO) 7.8 % (4-12); Mean Corpuscular Hemoglobin 30.8 pg (27.0-35.0); Mean Corpuscular Volume 99.3 fL (81-100); NEUTROPHILS % (AUTO) 84.6 % (40-74); Platelet Count 285 bil/L (150-400)
[2017-05-03 04:58] LABS: INR 1.17 ratio
[2017-05-03] MEDS: Piperacillin-Tazo 3.375 Gm Inj 3.375 GM in Dextrose 5% Minibag Plus 50 ML IV SCH ×2 (05:24→18:37)
--- NOTE | 2017-05-03 06:29 | NUR ---
Pain Patient reported pain at 5/10 at HS and this AM during shift, requesting 1 tab of [place] for pain relief, and stating medication effective upon reassessment. L foot rewrapped this AM due to dressing falling off throughout night. Mild hypotension at beginning of shift; MD consulted, blood pressure medications and diuretics held, with allowance for pain medication to be given. VSS, tele SR 60s. BGs 109 and 101. NPO after midnight.
[2017-05-03] MEDS: Insulin LISPRO 300 Unit/3 mL Inj SUBQ SCH ×4 (08:00→22:01)
--- NOTE | 2017-05-03 09:00 | NUR ---
Pt Refused Dialysis Pt refused dialysis this am, stating "I need 2hrs heads up so I can put my cream on". MD aware, Dialysis nurse Moni aware. will attempt again after pt back from procedure which is scheduled for 0. Ongoing care.
--- NOTE | 2017-05-03 09:03 | PCM.PNNEPH ---
DASIA BOURGEOIS DO 05/03/17 0902: Subjective Date of Service May 03, 2017 Subjective Patient received additional imaging studies yesterday including aortic arch arteriogram and upper extremity ultrasound which showed both calcification of the right common femoral as well as right upper extremity arterial steal syndrome. She is scheduled to undergo revision of the distal right radial artery today and will most likely receive IR procedure for the left lower extremity on Sunday. Vital signs remained mostly stable slightly hypotensive, remains afebrile with regular pulse. She is made approximately 500 mL of urine over the last 24 hours. White count continues to trend down as does H&H. Chem panel shows normalization of potassium to 5.1 though pro calcitonin of 10. Overall she feels much better and is in good spirits at interview, is looking forward to receiving surgical procedures may provide relief from her chronic pain. Exam Vital Signs Vital Sign - Last Date Time Temp Pulse Resp B/P Pulse Ox O2 Delivery O2 Flow Rate FiO2 05/03/17 05:36 63 05/03/17 04:29 36.7 18 128/58 97 Nasal Cannula 3.00 Intake and Output 05/02/17 05/02/17 05/03/17 Cumulative From/Thru 15:00 23:00 07:00 04/30/17 14:02 - 05/03/17 06:22 Intake Total 470 ml 640 ml 400 ml 2630 ml Output Total 500 ml 500 ml Balance -30 ml 640 ml 400 ml 2130 ml Intake Oral 400 ml 640 ml 400 ml 1560 ml IV Total 70 ml 1070 ml Output Urine Total 500 ml 500 ml # Voids 2 1 1 4 Exam General: Awake and alert laying in hospital bed in no acute distress, well- developed, well-nourished, normal mood and affect HEENT: Normocephalic, atraumatic. External ears without defect. Pupils equal, round, and reactive to light and accommodation. Moist mucosa, poor dentition - many missing teeth Neck: Supple with full range of motion. No jugular venous distension. Cardiovascular: Regular rate and rhythm with no murmurs, rubs, or gallops appreciated Pulmonary: Clear to auscultation upper anterior lobes. No use of accessory muscles, good air movement Abdomen: Soft, nontender to palpation 4 quadrants. Extremities: Right forearm fistula with good thrill. Right upper extremity digits covered with bandages. No edema in lower extremities Psychiatric: Alert and oriented to person, place, and time. Lab and Diagnostics Result Diagram: 05/03/17 0430 05/02/17 0550 X-Rays, CTs and MRIs X-RAY CHEST ONE VIEW, PORTABLE IMPRESSION: Suspect mild pulmonary edema, heart size at the upper limits of normal. Dictated by: Kiko Ferris M.D. on 04/30/2017 X-RAY CHEST ONE VIEW IMPRESSION: 1. Bibasilar pulmonary opacities may represent infection, edema or scarring. 2. Prominent pulmonary venous vascularity consistent with early mild fluid imbalance. Dictated by: Papito Grover M.D. on 05/02/2017 X-RAY LEFT FOOT COMPLETE, MINIMUM THREE VIEWS IMPRESSION: 1. No plain film evidence of osteomyelitis. If there is clinical concern for osteomyelitis consider an MRI with and without contrast. 2. Interval surgical resection through the proximal left third and fourth phalanges. Dictated by: Papito Grover M.D. on 05/01/2017 US DUPLEX DOPPLER OF UNILATERAL ARM ARTERIES, RIGHT IMPRESSION: 1. Fistula stealing from right radial artery with reversal of flow in the right radial artery. 2. Normal antegrade flow noted in the right ulnar artery. Dictated by: Heydi Solorzano MD, PhD on 04/30/2017 US DUPLEX DOPPLER UNILATERAL LEG ARTERIES, LEFT IMPRESSION: 1. Hemodynamically significant atherosclerotic disease involving the anterior tibial artery. 2. No hemodynamically significant disease involving the femoral arteries, popliteal artery or posterior tibial artery. Dictated by: Heydi Solorzano MD, PhD on 04/30/2017 US DUPLEX DOPPLER OF UNILATERAL ARM ARTERIES, RIGHT IMPRESSION: 1. Retrograde flow in the radial artery just peripheral to the arteriovenous dialysis fistula. These findings are consistent with arterial steal. 2. Findings consistent with a patent palmar arch. Dictated by: Emi José M.D. on 05/02/2017 CT ANGIOGRAPHY OF THE AORTA WITH RUN-OFF WITH AND WITHOUT CONTRAST IMPRESSION: 1. Focal, dense intraluminal calcification of the right common femoral artery. An atherectomy was performed previously at this site. If the patient endorses recurrent symptoms of the right lower extremity, repeat atherectomy is recommended. Consider interventional radiology consultation. 2. Multifocal bilateral high-grade stenoses of the superficial femoral arteries. These are likely amenable to percutaneous angioplasty if clinically indicated to improve flow to the infrageniculate lower extremities. 3. Diffuse narrowing of the bilateral popliteal arteries secondary to dense atheromatous plaque and calcifications. 4. Diffuse multifocal narrowing and high-grade stenoses at the infrageniculate arteries bilaterally. There is 2 vessel bilateral lower extremity runoff. Dictated by: Emi José M.D. on 05/02/2017 12-lead ECG SR 70 incomplete LBBB, inferior lateral T-wave inversions, no acute peak T- waves (personally reviewed) Plan Impression End Stage Renal Disease on hemodialysis, noncompliance -Hold IV fluids -Received dialysis 05/01/2017 -Scheduled for surgery today, consider dialysis postsurgery Hyperkalemia -Initial serum potassium 6.8, -Received insulin, glucose and calcium gluconate. No evidence of peaked T waves on EKG -Refused Kayexalate -Dialysis as above -Potassium normalized to 5.1 today -Repeat labs pending Diabetes mellitus type II insulin-dependent -A1c 7.2 -Insulin management by primary team Hypertension -Consider discontinuation of KRIS inhibitor and beta renee secondary to hyperkalemia as above Suspected steal syndrome - Scheduled for surgery today Rukhsana Triplett MD 05/03/17 1503: Exam Lab and Diagnostics Result Diagram: 05/03/17 0430 05/02/17 0550 Plan Impression Pt was seen and examined. Case discussed with Dr. Bourgeois. Agree with assessment and plan as outlined above. Jackie Stuart MD. DASIA BOURGEOIS DO May 03, 2017 09:02 Rukhsana Triplett MD May 03, 2017 15:03
[2017-05-03] MEDS: Heparin 5,000 Unit/mL Inj SUBQ SCH ×2 (09:22→21:06)
--- NOTE | 2017-05-03 11:03 | NUR ---
Inpatient Wound Nurse Patient seen for care of LLE wounds. 5th toe and lateral met head to tuberosity are dark, dusky and cool, toe frankly gangrenous but well-attached, oozing small amount of serosanguinous exudate. 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 Wounds were cleansed and covered with Adaptic and nonstick gauze, then entire foot wrapped with Kerlix. Patient requested no tension on Kerlix, stated that feet are sensitive despite neuropathy. Patient is expecting to go to OR at 1230, and so, no dressing changes to R fingers until after procedure. CWON will check on patient later today to assess for wound care to R hand post surgery.
--- NOTE | 2017-05-03 12:25 | NUR ---
Pt to procedure pt gone for surgery. Pt verbalized being NPO since midnight however had sips of water with morning meds. Report given to OR nurse. Pt off Tele at this time.
--- NOTE | 2017-05-03 12:45 | PCM.HPANE ---
Patient Data Surgeon Admitting Provider:Michael Sandhu MD Attending Provider:Evan Frost MD Primary Care Physician:Rukhsana Triplett MD Other Provider: Reason for Visit Esrd, Hyperkalemia Ht/WT & BMI Height (Feet): 5 Height (Inches): 6.00 Weight (Kilograms): 111.700 Body Mass Index 39.58 Allergies Coded Allergies: atenolol (Verified Adverse Reaction, Severe, PROFOUND HYPOTENSION, 11/16/16) Htlhdbq-Gih-Bkm Reductase Inhibitor (Verified Adverse Reaction, Intermediate, Muscle Pain/Weakness, 11/16/16) clopidogrel (Verified Adverse Reaction, Intermediate, Bleeding, 11/16/16) ezetimibe (Verified Adverse Reaction, Intermediate, Muscle Pain/Muscle Weakness, 11/16/16) Past Anesthesia History Anesthesia History: Denies:: Abnormal Airway, Anesthesia Reactions, Difficult Intubation, Fam Anesthesia Reaction, Fam Malignant Hypertherm, Malignant Hyperthermia Diabetes History Hx Diabetes?: Yes Type of Diabetes: Type II Glycemic Control: Insulin & Oral Medication Current Bedside Blood Glucose: 80 MRSA MRSA: No Medications Blood Thinner: Plavix Active Scripts Amoxicillin/Clav K 875-125 mg (Augmentin 875-125 mg)1 Each Tablet1 Tablet PO BID 7 Days Ref 0 Prov:Danis Thomas MD 11/20/16 Hydrocodone-Acetaminophen 5-325 mg 1 Each Tablet1 Tablet PO Q6 PRN For Mild Pain #14 TABLET Prov:Danis Thomas MD 11/20/16 Reported Medications Aspirin 81 Mg Zkmors17 Mg PO DAILY Ref 0 05/01/17 Calcium Acetate 667 Mg Flcwem379 Mg PO TIDWM 05/01/17 Losartan Potassium 25 Mg Rurbju37 Mg PO DAILY #90 05/01/17 Ezetimibe 10 Mg Oawgeq23 Mg PO DAILY #30 05/01/17 Aspirin 325 Mg Fjybej060 Mg PO DAILY #1 BOTTLE 11/16/16 Sodium Polystyrene Sulfonate (Kionex)15 Gm/60 Ml Oral.susp15 Gm PO //Sun11/16/16 Cholecalciferol (Vitamin D3) (Vitamin D3)50,000 Unit Ajqyybn84,000 Unit PO WEEKLY Takes on Mondays11/16/16 Ranitidine 150 Mg Elbgfzt746 Mg PO BID PRN acid reflux Ref 0 11/16/16 Sumatriptan Succinate (Imitrex)50 Mg Nyfliz95 Mg PO DAILY PRN Migraines 11/16/16 Metolazone 5 Mg Tablet5 Mg PO HS #1 TABLET 11/16/16 Multivitamin/Iron/Folic Acid (Cerovite Advanced Form Tab)1 Each Tablet1 Each PO DAILY 11/16/16 Furosemide 80 Mg Tab80 Mg PO HS 30 Days Ref 0 11/16/16 Lisinopril 5 Mg Tablet5 Mg PO HS #60 TABLET Ref 0 11/16/16 Albuterol HFA (Proair HFA)8.5 Gm Hfa.aer.ad2 Puffs INHALATION Q4H PRN For Shortness of Breath #1 INHALER 09/23/15 Lorazepam 0.5 Mg Tablet0.5 Mg PO TID PRN For Anxiety Ref 0 Uses mainly for insomnia 04/26/15 Amlodipine (Norvasc)5 Mg Tablet5 Mg PO HS Ref 0 04/26/15 Nitroglycerin SL 0.4 Mg Tab.subl0.4 Mg SL PRN HYPERtension 02/23/15 Carvedilol 25 Mg Tpzwfc22 Mg PO BIDWM 30 Days Ref 0 02/23/15 Insulin Regular, Human (HUMulin-R U100 Insulin Vial)100 Unit/1 Ml Vial3-6 Unit SUBQ TIDWM #1 VIAL Ref 0 SLIDING SCALE 11/06/14 Insulin Glargine (Lantus U100 Solostar Insulin Pen)100 Unit/1 Ml Insuln.pen30 Unit SUBQ HS #1 PENINJ Ref 0 11/06/14 Discontinued Reported Medications Amlodipine 5 Mg Tablet5 Mg PO HS #90 05/01/17 Aspirin 325 Mg Qjnbwh191-0,300 Mg PO TID PRN For Pain #1 BOTTLE 11/16/16 Calcium Acetate (Phoslyra)667 Mg/5 Ml Aifmzviy539 Mg PO TIDWM Doesn't remember to take often 11/16/16 Albuterol/Ipratropium (Combivent Respimat Inhal [place])120 Spr/4 Gm Inhaler1 Puff IH QID #1 INH Ref 0 Not taking 02/23/15 History History of ENT Problems?: Yes HEENT History: Positive for:: Cataracts Sinus Problem (congestion) Denies:: Abnormal Airway Difficult Intubation Dysphagia Hearing Problem Denture Type: None Teeth Condition: Missing Teeth Other HEENT Pertinent History: Missing upper teeth and loose lower with several missing Hx of Heart Problems?: Yes Cardiovascular History: Positive for:: Cardiac Surgery (4 stents) Chest Pain Congestive Heart Failure Edema Hypertension Denies:: Heart Murmur Irregular Heartbeat Pacemaker Thrombophlebitis Hx of Respiratory Problem?: Yes Respiratory History: Positive for:: Asthma (HAS INHALER) COPD Dyspnea (with exertion) Emphysema Pneumonia (HX OF) Denies:: Chest Surgery Hemoptysis Tuberculosis Hx Neurologic Problems?: Yes Neurological History: Positive for:: CVA (JUNE 2014, SLIGHT RIGHT SIDED WEAKNESS, SOME SPEECH ISSUES) Dizziness Headaches Denies:: Alzheimer's Disease Dementia Parkinson's Disease Seizures Hx of GI Problems?: Yes Hx of Problems?: Yes Genitourinary History: Positive for:: HX of Hemodialysis (3 TIMES WEEKLY-- LAST 04/23/17) Urinary Tract Infection Denies:: Kidney Stones HX of Peritoneal Dialysis: No Female Hx: Denies:: Currently Endometriosis Pelvic Inflammatory Problems with Breasts? Skin History: Denies:: History Skin Disorders? Pressure Ulcers Hx Musculoskeletal Problems?: Yes Musculoskeletal History: Positive for:: Back Injury (sciatica) Denies:: Joint Replacement Musculoskeletal Trauma Hx of Psycho/Social Problems?: Yes Psycho Social History: Positive for:: Anxiety Hx Depression Denies:: Bipolar Disorder Suicide Attempt Hx Surgeries?: Yes (tubal ligation, c section, hysterectomy) Hx Any Other Health Problems?: Yes Other History: Positive for:: Hospitalization (COFFEY,PNEUMONIA,CHF) Denies:: Cancer Endocrine Disease Thyroid Disease History Blood Transfusions: Positive for:: Accept Blood Products? Blood Transfusions Denies:: Blood Transfuse Reaction Hx Diabetes: YesBedside Blood Glucose: 80 Other Pertinent History: FISTULA IN RT. ARM - B/P LEFT ARM ONLY Hx Alcohol Use: NoHx Substance Use: No Smoking Status: Current Every Day Smoker Have You Smoked inLast 12 mo: YesApprox How Many Cigarettes/day: 10+ CIGARETTES Stop/Bang Treated for Sleep Apnea?: No Do You Have a CPAP Machine?: No S-Snoring: Do You Snore Loudly: No T-Tired: feel tired, fatigued: No O-Obsered: Observed not breath: No P-Blood Pressure: treated: No B- Body Mass Index > 35 kg/m2: Yes A- Age over 50: Yes N- Neck Large Circumference: No G- Gender Male: No DONAVON Total Score: 2 Risk Assessment Category Category 1A: Patient has history of documented sleep apnea, and HAS NOT received any narcotic, sedative or anesthesia administration during this stay. Category 1B: Patient has history of documented sleep apnea, and HAS received any narcotic , sedative or anesthesia administration during this stay Category 2: Patient has SUSPECTED Obstructive Sleep Apnea, and HAS received any narcotic , sedative or anesthesia administration during this stay. Category 3: Patient has SUSPECTED Obstructive Sleep Apnea and HAS NOT received narcotic, sedative or anesthesia administration during this stay. Category 4: Outpatient in Procedural Areas with known sleep apnea or who screen positive for High Risk via the STOP/BANG questionnaire. Exam Exam Vital Signs Vital Signs Date Time Temp Pulse Resp B/P Pulse Ox O2 Delivery O2 Flow Rate FiO2 05/03/17 10:19 61 05/03/17 09:43 Supplement Oxygen 05/03/17 09:40 36.7 61 22 117/74 97 05/03/17 05:36 63 General Appearance: Alert, Oriented X3, Cooperative, Mild Distress HEENT/AIRWAY: MP 3 Lungs: Clear to Auscultation Heart: Exam Unremarkable Meds/Labs/Diagnostics Bedside Blood Glucose: 80 Labs Test 04/30/17 15:22 05/01/17 04:35 05/03/17 04:30 Erythrocyte Sedimentation Rate > 140mm/hr (0-40) Lactic Acid Level 1.2mmol/L (0.4-2.0) Magnesium Level 2.4mg/dL (1.6-2.6) Hemoglobin A1c 7.2% (4.8-5.6) Vancomycin Level Trough 11.5mcg/mL White Blood Count 15.1th/mm3 (3.8-10.1) Red Blood Count 2.95mil/mm3 (3.90-5.20) Hemoglobin 9.1g/dL (12.0-15.6) Hematocrit 29.3% (35.0-46.0) Mean Corpuscular Volume 99.3fL (81-100) Mean Corpuscular Hemoglobin 30.8pg (27.0-35.0) Mean Corpuscular Hemoglobin Concent 31.1% (32.0-37.0) Red Cell Distribution Width 15.0% (12.3-15.4) Platelet Count 285bil/L (150-400) Neutrophils (%) (Auto) 84.6% (40-74) Lymphocytes (%) (Auto) 6.3% (14-46) Monocytes (%) (Auto) 7.8% (4-12) Eosinophils (%) (Auto) 0.9% (0-5) Basophils (%) (Auto) 0.1% (0-3) Prothrombin Time 12.6sec (8.1-12.5) Prothromb Time International Ratio 1.17ratio Sodium Level 138mEq/L (134-144) Potassium Level 4.8mEq/L (3.5-5.2) Chloride Level 93mEq/L (97-108) Carbon Dioxide Level 23mmol/L (18-29) Blood Urea Nitrogen 53mg/dL (6-24) Creatinine 7.66mg/dL (0.57-1.00) Estimat Glomerular Filtration Rate 8mL/min (>59) Glucose Level 100mg/dL (60-99) Calcium Level 8.0mg/dL (8.5-10.1) Total Bilirubin 0.2mg/dL (0.0-1.2) Aspartate Amino Transf (AST/SGOT) 76U/L (0-50) Alanine Aminotransferase (ALT/SGPT) 127U/L (0-32) Alkaline Phosphatase 70U/L (25-150) Total Protein 5.8g/dL (6.4-8.4) Albumin 3.0g/dL (3.4-5.0) Procalcitonin 10.22ng/mL (0.00-0.08) Plan Impression Patient chart reviewed, patient interviewed and anesthestic plan with risks, benefits, and alternatives discussed, and informed consent obtained. NPO per Anesth. Guidelines: Yes ASA Physical Status: ASA3 Severe Disease Anesthetic Plan: MAC Bene/Risks/Altern/Consents: Yes HP Complete Prior to Induction: Yes Al Thorpe MD May 03, 2017 12:45
[2017-05-03] MEDS ORDERED: 0.9% Sodium Chloride 1,000 ML IV ONE (13:05)
[2017-05-03] MEDS ORDERED: Bupivacaine-MPF 0.5% 30 mL Inj INFILTRATE ONE (13:35)
[2017-05-03] MEDS: Lactated Ringer's 1,000 ML IV SCH ×2 (13:46→22:57)
[2017-05-03] MEDS ORDERED: Lactated Ringer's 500 ML IV PRN (13:46)
[2017-05-03] MEDS ORDERED: Phenylephrine 10,000 mCg/mL Inj IVPUSH PRN (13:50)
[2017-05-03] MEDS ORDERED: HYDROmorphone 1 mg/mL Inj IVPUSH PRN (13:50)
[2017-05-03] MEDS ORDERED: MetoCLOpramide 5 mg/mL 2 mL Inj IVPUSH PRN (13:50)
[2017-05-03] MEDS ORDERED: Dexamethasone 4 mg/mL Inj IVPUSH PRN (13:50)
[2017-05-03] MEDS ORDERED: Ondansetron 2 mg/mL 2 mL Inj IVPUSH PRN (13:50)
[2017-05-03] MEDS ORDERED: EPHEDrine Sulfate 50 mg/mL Inj IVPUSH PRN (13:50)
[2017-05-03] MEDS: fentaNYL-PF 50 mCg/mL 2 mL Inj IVPUSH PRN ×2 (14:32→14:40)
--- NOTE | 2017-05-03 15:08 | PCM.PNMED ---
Subjective Date of Service May 03, 2017 Subjective Patient did well overnight. States she ate well yesterday. She is scheduled for surgery today and possible dialysis afterwards pending nephrology. Denies review of systems and actually states that her pain is well controlled. Exam Vital Signs Vital Sign - Last Date Time Temp Pulse Resp B/P Pulse Ox O2 Delivery O2 Flow Rate FiO2 05/03/17 14:58 36.8 67 18 123/62 94 Nasal Cannula 3.00 Intake and Output 05/02/17 05/02/17 05/03/17 Cumulative From/Thru 15:00 23:00 07:00 04/30/17 14:02 - 05/03/17 06:22 Intake Total 470 ml 640 ml 400 ml 2630 ml Output Total 500 ml 500 ml Balance -30 ml 640 ml 400 ml 2130 ml Intake Oral 400 ml 640 ml 400 ml 1560 ml IV Total 70 ml 1070 ml Output Urine Total 500 ml 500 ml # Voids 2 1 1 4 Exam He is obes Regular rate and rhythm with no murmurs Pulmonary: CTA bilaterally with mild wheezing Abdomen: Soft, nontender Extremities: Right forearm fistula with good thrill. Right upper extremity digits covered with bandages, middle finger bandage removed show redness and excoriation which appears to be chronic. Left foot missing second and third toes with necrosis of one of her fifth toe Psychiatric: Flat affect. Alert and oriented to person, place, and time. IVs and Medications Medications Reviewed: Medications were reviewed in detail Lab and Diagnostics Result Diagram: 05/03/17 0430 05/03/17 0430 X-Rays, CTs and MRIs X-RAY CHEST ONE VIEW, PORTABLE IMPRESSION: Suspect mild pulmonary edema, heart size at the upper limits of normal. Dictated by: Kiko Ferris M.D. on 04/30/2017 X-RAY CHEST ONE VIEW IMPRESSION: 1. Bibasilar pulmonary opacities may represent infection, edema or scarring. 2. Prominent pulmonary venous vascularity consistent with early mild fluid imbalance. Dictated by: Papito Grover M.D. on 05/02/2017 X-RAY LEFT FOOT COMPLETE, MINIMUM THREE VIEWS IMPRESSION: 1. No plain film evidence of osteomyelitis. If there is clinical concern for osteomyelitis consider an MRI with and without contrast. 2. Interval surgical resection through the proximal left third and fourth phalanges. Dictated by: Papito Grover M.D. on 05/01/2017 US DUPLEX DOPPLER OF UNILATERAL ARM ARTERIES, RIGHT IMPRESSION: 1. Fistula stealing from right radial artery with reversal of flow in the right radial artery. 2. Normal antegrade flow noted in the right ulnar artery. Dictated by: Heydi Solorzano MD, PhD on 04/30/2017 US DUPLEX DOPPLER UNILATERAL LEG ARTERIES, LEFT IMPRESSION: 1. Hemodynamically significant atherosclerotic disease involving the anterior tibial artery. 2. No hemodynamically significant disease involving the femoral arteries, popliteal artery or posterior tibial artery. Dictated by: Heydi Solorzano MD, PhD on 04/30/2017 US DUPLEX DOPPLER OF UNILATERAL ARM ARTERIES, RIGHT IMPRESSION: 1. Retrograde flow in the radial artery just peripheral to the arteriovenous dialysis fistula. These findings are consistent with arterial steal. 2. Findings consistent with a patent palmar arch. Dictated by: Emi José M.D. on 05/02/2017 CT ANGIOGRAPHY OF THE AORTA WITH RUN-OFF WITH AND WITHOUT CONTRAST IMPRESSION: 1. Focal, dense intraluminal calcification of the right common femoral artery. An atherectomy was performed previously at this site. If the patient endorses recurrent symptoms of the right lower extremity, repeat atherectomy is recommended. Consider interventional radiology consultation. 2. Multifocal bilateral high-grade stenoses of the superficial femoral arteries. These are likely amenable to percutaneous angioplasty if clinically indicated to improve flow to the infrageniculate lower extremities. 3. Diffuse narrowing of the bilateral popliteal arteries secondary to dense atheromatous plaque and calcifications. 4. Diffuse multifocal narrowing and high-grade stenoses at the infrageniculate arteries bilaterally. There is 2 vessel bilateral lower extremity runoff. Dictated by: Emi José M.D. on 05/02/2017 12-lead ECG SR 70 incomplete LBBB, inferior lateral T-wave inversions, no acute peak T- waves (personally reviewed) Assessment & Plan Social crease 51-year-old woman presents with progressive diabetic foot ulcer and fluid/electrolyte abnormalities related to missed dialysis Diabetic foot ulcer left foot. Acute on chronic. Likely osteomyelitis. ESR greater than 140. Clinical exam with necrotic fifth phalanx. Leukocytosis but no other signs of systemic sepsis. - Arterial Dopplers pending -Cultures to be obtained at time of debridement -Stopped Vancomycin due to MRSA neg -Continue Zosyn at renally adjusted doses -Pain management by mouth and/or IV -CT angio aortogram with runoff: radiology reported severe occlusion in LLE -Reportedly talking to Dr. Frost about plan going forward -Surgery reportedly tomorrow with Dr. Frost Right hand skin ulceration second to vascular steal syndrome, chronic. - Arterial Doppler shows fistula stealing from right radial artery - Antibiotics as above -Surgery today with Dr. Frost End stage renal disease, hemodialysis, chronic. Chest x-ray suggests fluid overload the patient is asymptomatic with good oxygenation. - Oxygen as needed - No intravenous fluid resuscitation - Nephrology consult - Patient dialyzing today after getting contrast for aortic angiogram - Patient requires lidocaine ointment prior to dialysis were ordered negative Type II diabetes mellitus, insulin-dependent, chronic. - Hemoglobin A1c - Continue usual basal insulin - 30 units at bedtime - Nutritional and correctional lispro - Post op will consider moving to ggt is she is uncontrolled; currently doing great - 1 episode of hypoglycemia on lab work, but bedside BG checks were normal -Strict postop glucose control less than 180 Resolving, stable and are chronic problems: Hyperkalemia, acute, present on admission. resolved Initial serum potassium 6.8. Received insulin, glucose and calcium gluconate. No evidence of peaked T waves. - Kayexalate 1 was refused by patient - We will hold off on further calcium gluconate unless signs of EKG toxicity - Dialysis for 2 hours today which resolved the problem Hypertension, chronic.Continue usual medications except reduce diuretics in light of acute infection Headache, chronic migraine. Patient states the trip tans are not effective. She endorses rest and Vicodin. History of CVA, chronic. Patient is on aspirin prophylaxis. Plan to continue; should not be on sumatriptan because she has this hx Asthma - when necessary bronchodilators Disposition: Unknown timeline for discharge VTE Prophylaxis: Sub-Q Heparin (Unfractionated) Resuscitation Status: CPR: Attempt Resuscitation Attending Statement The patient was seen and examined together with on May 03 and I agree with the history, exam findings, and plan as outlined in the note above. I did participate in all aspects of the services provided today, including documentation and the plan of care. She underwent a right radial artery ligation earlier today for her and steal. She will be dialyzed tonight or tomorrow morning and then we will address her peripheral arterial vascular disease. Rajan Linton DO May 03, 2017 15:08 Evan Frost MD May 04, 2017 14:04
--- NOTE | 2017-05-03 15:34 | OP ---
[address] [address] OPERATIVE REPORT PATIENT: LARRY GRULLON : 1965 MR#: [id number] ADMIT: 04/30/2017 JOB ID: [id number] DATE OF SURGERY: 05/03/2017 PREOPERATIVE DIAGNOSIS(ES): Ischemic right hand. POSTOPERATIVE DIAGNOSIS(ES): Ischemic right hand. PROCEDURE: Ligation of distal right radial artery. INDICATIONS: A 50-year-old female with a right forearm AV fistula who has signs and symptoms consistent with arterial steal. Preoperative workup has included Doppler studies of the ulnar, radial and palmar arch arteries which has demonstrated intact palmar arch with ulnar flow and retrograde flow in the distal right radial artery. She is brought to the operating room for exploration and planned ligation of the right radial artery. FINDINGS: See below for details. SURGEON: Dr. Jose Chavez DESCRIPTION OF PROCEDURE: The patient was brought to the operating room. SCOAP protocol was followed. Anesthetic was local with IV sedation. After surgical time-out and appropriate preoperative antibiotics, following prep and drape of the right arm in a sterile fashion, I began with a Doppler interrogation of the ulnar artery and palmar arch. Consistent with the previous study, there was a good Doppler signal at the ulnar and radial arteries just proximal to the wrist, but palmar arch was not found by bedside Doppler. However, I was able to find a digital signal on the 3rd and 4th digits, and with manual compression of the right radial artery, the signal did not disappear. I, therefore, instilled local anesthetic and made a longitudinal incision over the right radial artery distal to the fistula. I dissected down and identified the right radial artery, controlled it with a 2-0 silk proximal and distal. I pulled up on it to occlude it and the digital signals remained. The occlusion of the radial artery did not lead to being able to hear palmar arch signals. However, the digital signals remained as strong if not slightly augmented and I, therefore, I then occluded the right radial artery on the proximal side and made a small incision in the radial artery and established that indeed there was pulsatile flow in the reverse direction. I, therefore, ligated off the right radial artery on both sides of this arteriotomy and interrogated the area to be certain that I did not have any other significant pulsatile flow such as duplicated right radial artery. There was no flow. The patient still had a palpable thrill in her AV fistula and digital arterial signals continued to be present. I now irrigated out the wound, closed it in multiple layers with absorbable suture and applied dry dressings. The patient tolerated the procedure well.
--- NOTE | 2017-05-03 15:40 | NUR ---
Inpatient Wound Nurse Patient has returned to her room. Incision site on R arm is covered, clean, dry intact with Tegaderm over gauze. Index, middle, and ring finger of R hand are each wrapped with gauze, clean, dry, intact. CWON will check with patient tomorrow regarding need for new dressings on R fingers and L foot.
[2017-05-03] MEDS ORDERED: HYDROmorphone 1 mg/mL Inj ONE (16:39)
[2017-05-03] MEDS ORDERED: EPHEDrine/NS 5 mg/mL 5 mL Syringe ONE (16:39)
[2017-05-03] MEDS ORDERED: Ondansetron 2 mg/mL 2 mL Inj ONE (16:39)
[2017-05-03] MEDS ORDERED: Phenylephrine/NS 100 mCg/mL 10 mL Syringe IVPUSH ONE (16:39)
[2017-05-03] MEDS ORDERED: fentaNYL-PF 50 mCg/mL 2 mL Inj ONE (16:39)
[2017-05-03] MEDS ORDERED: Propofol 10,000 mCg/mL 20 mL Inj ONE (16:39)
--- NOTE | 2017-05-03 17:51 | PCM.ANEP1 ---
Post Anesthesia PACU Phase 1 Assessment Vital Signs Vital Signs Date Time Temp Pulse Resp B/P Pulse Ox O2 Delivery O2 Flow Rate FiO2 05/03/17 17:24 37.0 65 18 123/76 93 Nasal Cannula 3.00 05/03/17 14:58 36.8 67 18 123/62 94 Nasal Cannula 3.00 05/03/17 14:50 66 17 104/45 95 Nasal Cannula 2 05/03/17 14:35 64 15 106/44 97 Nasal Cannula 2 05/03/17 14:30 64 17 102/43 95 Nasal Cannula 3 05/03/17 14:25 61 15 103/58 97 Simple Mask 10 05/03/17 14:20 37.3 64 17 120/53 96 Simple Mask 10 05/03/17 10:19 61 Anesthetic Administered: MAC Level of Alertness: Awake, talking Pain: Yes Pain Scale Score: 8 Nausea or Vomiting: No CV Function & Hydration Stable: Yes Airway Device: None Lungs: Clear to Auscultation PACU Phase 2 Assessment Complications: No Follow up Care: N/A Patient Instructions Provided: N/A Al Thorpe MD May 03, 2017 17:51
--- NOTE | 2017-05-03 18:01 | DRSVH ---
PROCEDURE: US RENAL SONOGRAM INDICATIONS: hematuria TECHNIQUE: Real-time scanning was performed of the kidneys and bladder, with image documentation. COMPARISON: None. FINDINGS: Kidneys: Kidneys are reduced in cortical thickness. Right kidney measures 12.0 cm long; left kidney measures 12.3 cm long. Right renal cortical thickness is 0.8 cm; left renal cortical thickness is 0 .8 cm. Renal cortical echotexture is normal. No hydronephrosis or nephrolithiasis. No suspicious s olid mass lesions. Bladder: Accurate assessment of the bladder is not possible because the patient had voided just prio r to the beginning of the examination. Miscellaneous: No free pelvic fluid. IMPRESSION: No hydronephrosis or nephrolithiasis found. Bilateral renal cortical thinning. Bladder not effectively evaluated due to patient voiding just before beginning of the study. Dictated by: Kiko Ferris M.D. on 05/03/2017 at 17:58 Approved by: Kiko Ferris M.D. on 05/03/2017 at 18:00
--- NOTE | 2017-05-03 19:32 | NUR ---
blood in urine noted pt had blood in urine, Dr Triplett made aware. New order to bladder scan pt and if pt has more than 200 cc of retention to straight cath pt and send sample to lab. When bladder scanned pt, showing 0cc retention. Report given to oncoming RN.
[2017-05-03] MEDS: Insulin GLARgine 100 Unit/mL Syringe SUBQ SCH (22:00)
[2017-05-04] VITALS (13 sets, daily range): BP systolic 127–176; BP diastolic 65–76; PULSE 63–70; RESP 12–18; O2SAT 97–98
--- NOTE | 2017-05-04 02:54 | NUR ---
Tele/Pain A&O x 3 using call light appropriately, slight pain after surgery, gave additional 5 Mg Addison and was comfortable after. 3 L O2 per Nasal Cannula, NPO after Midnight pending procedure in morning, in ivonem assisting w ADL Dialysis @ 0800 , Saline locked x 2 left arm . All BP on left arm , rt arm has dialysis fistula. Tele: SR 70 Bundle Branch Block Addendum: 05/04/17 at 0414 by CIERA SANDERS RN UA set to :Lab
[2017-05-04] MEDS: HYDROcodone-APAP 5-325 mg Tablet PO PRN ×3 (04:12→12:44)
[2017-05-04] MEDS: Ondansetron 2 mg/mL 2 mL Inj IVPUSH PRN (04:12)
[2017-05-04 04:21] LABS: BASOPHILS % (AUTO) 0.1 % (0-3); EOSINOPHILS % (AUTO) 0 % (0-5); MONOCYTES % (AUTO) 4.9 % (4-12); Mean Corpuscular Hemoglobin 31.2 pg (27.0-35.0); Mean Corpuscular Volume 99.4 fL (81-100); NEUTROPHILS % (AUTO) 91.4 % (40-74); Platelet Count 356 bil/L (150-400)
[2017-05-04 04:29] LABS: APPEARANCE,URINE CLEAR (CLEAR,HAZY); COLOR,URINE YELLOW (YELLOW); OCCULT BLOOD,URINE TRACE (NEGATIVE); UROBILINOGEN,URINE NORMAL (NORMAL); YEAST,URINE MODERATE (NONE SEEN)
[2017-05-04] MEDS ORDERED: 0.9% Sodium Chloride 250 ML ONE (05:38)
[2017-05-04] MEDS: Piperacillin-Tazo 3.375 Gm Inj 3.375 GM in Dextrose 5% Minibag Plus 50 ML IV SCH (05:59)
[2017-05-04] MEDS: Insulin LISPRO 300 Unit/3 mL Inj SUBQ SCH ×2 (08:00→12:00)
[2017-05-04] MEDS: Heparin 5,000 Unit/mL Inj SUBQ SCH (08:09)
[2017-05-04] MEDS ORDERED: Heparin 1,000 Unit/mL 10 mL Inj ONE (09:57)
[2017-05-04] MEDS ORDERED: fentaNYL-PF 50 mCg/mL 2 mL Inj ONE ×3 (09:57→11:19)
[2017-05-04] MEDS ORDERED: Heparin 10,000 Unit/1,000 mL NS Premix IV ONE (09:59)
--- NOTE | 2017-05-04 10:38 | PCM.PNNEPH ---
DASIA BOURGEOIS DO 05/04/17 1038: Subjective Date of Service May 04, 2017 Subjective Received surgery yesterday ligation of right radial artery distal to fistula, tolerated procedure well. She complained of pain throughout the night which was relieved with additional pain medication. Today states she feels better though still states some pain in her right hand. Currently awaiting Lab/ dialysis/additional lower extremity surgery. Exam Vital Signs Vital Sign - Last Date Time Temp Pulse Resp B/P Pulse Ox O2 Delivery O2 Flow Rate FiO2 05/04/17 08:04 36.7 66 12 127/74 97 Nasal Cannula 3.00 Intake and Output 05/03/17 05/03/17 05/04/17 Cumulative From/Thru 15:00 23:00 07:00 04/30/17 14:02 - 05/04/17 06:47 Intake Total 150 ml 150 ml 100 ml 3030 ml Output Total 20 ml 200 ml 0 ml 720 ml Balance 130 ml -50 ml 100 ml 2310 ml Intake Oral 100 ml 100 ml 1760 ml IV Total 150 ml 50 ml 1270 ml Output Urine Total 200 ml 0 ml 700 ml Estimated Blood Loss 20 ml 20 ml # Voids 4 Exam General: Awake and alert laying in hospital bed in no acute distress, well- developed, well-nourished, normal mood and affect HEENT: Normocephalic, atraumatic. External ears without defect. Pupils equal, round, and reactive to light and accommodation. Moist mucosa, poor dentition - many missing teeth Neck: Supple with full range of motion. No jugular venous distension. Cardiovascular: Regular rate and rhythm with no murmurs, rubs, or gallops appreciated Pulmonary: Clear to auscultation upper anterior lobes. No use of accessory muscles, good air movement Abdomen: Soft, nontender to palpation 4 quadrants. Extremities: Right forearm fistula with good thrill. Swollen and tender to palpation, right extremity surgical bandage in place Psychiatric: Alert and oriented to person, place, and time. Lab and Diagnostics Result Diagram: 05/04/1740405/04/17404 X-Rays, CTs and MRIs X-RAY CHEST ONE VIEW, PORTABLE IMPRESSION: Suspect mild pulmonary edema, heart size at the upper limits of normal. Dictated by: Kiko Ferris M.D. on 04/30/2017 X-RAY CHEST ONE VIEW IMPRESSION: 1. Bibasilar pulmonary opacities may represent infection, edema or scarring. 2. Prominent pulmonary venous vascularity consistent with early mild fluid imbalance. Dictated by: Papito Grover M.D. on 05/02/2017 X-RAY LEFT FOOT COMPLETE, MINIMUM THREE VIEWS IMPRESSION: 1. No plain film evidence of osteomyelitis. If there is clinical concern for osteomyelitis consider an MRI with and without contrast. 2. Interval surgical resection through the proximal left third and fourth phalanges. Dictated by: Papito Grover M.D. on 05/01/2017 US DUPLEX DOPPLER OF UNILATERAL ARM ARTERIES, RIGHT IMPRESSION: 1. Fistula stealing from right radial artery with reversal of flow in the right radial artery. 2. Normal antegrade flow noted in the right ulnar artery. Dictated by: Heydi Solorzano MD, PhD on 04/30/2017 US DUPLEX DOPPLER UNILATERAL LEG ARTERIES, LEFT IMPRESSION: 1. Hemodynamically significant atherosclerotic disease involving the anterior tibial artery. 2. No hemodynamically significant disease involving the femoral arteries, popliteal artery or posterior tibial artery. Dictated by: Heydi Solorzano MD, PhD on 04/30/2017 US DUPLEX DOPPLER OF UNILATERAL ARM ARTERIES, RIGHT IMPRESSION: 1. Retrograde flow in the radial artery just peripheral to the arteriovenous dialysis fistula. These findings are consistent with arterial steal. 2. Findings consistent with a patent palmar arch. Dictated by: Emi José M.D. on 05/02/2017 CT ANGIOGRAPHY OF THE AORTA WITH RUN-OFF WITH AND WITHOUT CONTRAST IMPRESSION: 1. Focal, dense intraluminal calcification of the right common femoral artery. An atherectomy was performed previously at this site. If the patient endorses recurrent symptoms of the right lower extremity, repeat atherectomy is recommended. Consider interventional radiology consultation. 2. Multifocal bilateral high-grade stenoses of the superficial femoral arteries. These are likely amenable to percutaneous angioplasty if clinically indicated to improve flow to the infrageniculate lower extremities. 3. Diffuse narrowing of the bilateral popliteal arteries secondary to dense atheromatous plaque and calcifications. 4. Diffuse multifocal narrowing and high-grade stenoses at the infrageniculate arteries bilaterally. There is 2 vessel bilateral lower extremity runoff. Dictated by: Emi José M.D. on 05/02/2017 12-lead ECG SR 70 incomplete LBBB, inferior lateral T-wave inversions, no acute peak T- waves (personally reviewed) Plan Impression End Stage Renal Disease on hemodialysis, noncompliance -Hold IV fluids -Received dialysis 05/01/2017 -Radial artery ligation surgery yesterday, one half hour dialysis prior to cath procedure today. We will continue with dialysis this afternoon Hyperkalemia -Initial serum potassium 6.8, -Received insulin, glucose and calcium gluconate. No evidence of peaked T waves on EKG -Dialysis as above -Potassium stabilized to 5.1 -Continue to monitor Diabetes mellitus type II insulin-dependent -A1c 7.2 -Insulin management by primary team Hypertension -Consider discontinuation of KRIS inhibitor and beta renee secondary to hyperkalemia as above Suspected steal syndrome -Radial artery ligation artery surgery yesterday Rukhsana Triplett MD 05/04/17 1441: Exam Lab and Diagnostics Result Diagram: 05/04/17 0405 05/04/17 0405 Plan Impression Pt was seen and examined. Case discussed with Dr. Bourgeois. Agree with assessment and plan as outlined above. Jackie Stuart MD. DASIA BOURGEOIS DO May 04, 2017 10:38 Rukhsana Triplett MD May 04, 2017 14:41
--- NOTE | 2017-05-04 11:01 | PCM.PNSURG ---
Subjective Date of Service: May 04, 2017 Date of Service: May 04, 2017 Visit Information: Reason for Visit Esrd, Hyperkalemia Surgery/Surgery Date Post-Op Day # 1 Date of Admission: Apr 30, 2017 at 19:09 Hospital Day # Subjective: Reports improved pain and function in right upper extremity following surgery with Dr. Chavez yesterday. Dialysis was postponed this morning for lab assistant procedure and resume afterwards. Pain Management: Good Pain Control Objective Vital Sign- Last 8 Hours Date Time Temp Pulse Resp B/P Pulse Ox O2 Delivery O2 Flow Rate FiO2 05/04/17 08:04 36.7 66 12 127/74 97 Nasal Cannula 3.00 05/04/17 06:05 64 18 98 Nasal Cannula 3.00 05/04/17 05:44 64 05/04/17 03:23 36.8 65 18 133/75 98 Nasal Cannula 3.00 Intake and Output- Last 8 Hour 05/04/17 Cumulative From/Thru 07:00 04/30/17 14:02 - 05/04/17 06:47 Intake Total 100 ml 3030 ml Output Total 0 ml 720 ml Balance 100 ml 2310 ml Intake Oral 100 ml 1760 ml IV Total 1270 ml Output Urine Total 0 ml 700 ml Estimated Blood Loss 20 ml # Voids 4 General: Alert, Cooperative, No Acute Distress Lungs: Clear to Auscultation Heart: Exam Unremarkable Abdomen: Soft Extremities: Thigh&Calf Soft/Nontender, Other (improved left hand range of motion and sensation & continued necrosis of left fifth toe and dorsal foot with dressing intact) Neuro: Normal Speech Result Diagram: 05/04/17 0405 05/04/17 0405 Assessment & Plan Impression Primary Diagnoses: 1. End-stage renal disease 2. RUE ulcers associated with steal syndrome-Improved function postoperative day #1 status post right distal radial artery ligation. 3. LLE peripheral vascular disease with ulcer of the left foot & gangrene of the left fifth toe - Left femoral angiogram/angioplasty with possible stent to be completed today. Other Medical & Surgical History: Obesity Cerebrovascular disease Dyspnea Mitral stenosis Hypercholesterolemia Hypertension Leukocytosis Peripheral edema Chest pain Hyperlipidemia Diabetes mellitus History of diabetic ulcer of toe associated with diabetes mellitus Weakness Tobacco abuse Amputated toe of left foot History of pneumonia both lungs Problems: Plan 1. Cath-Lab LLE procedure today 2. Consider wound care consult 3. Appreciate continued ID input. 4. May require podiatry involvement. VTE Prophylaxis: Sub-Q Heparin (Unfractionated) Resuscitation Status: CPR: Attempt Resuscitation Kiko Wasserman PA-C May 04, 2017 11:01
--- NOTE | 2017-05-04 13:25 | NUR ---
NUTRITION ASSESSMENT: ASSESS:51 YO female presented with osteomyelitis and left diabetic foot ulcer, soft tissue infections of the right hand, and electrolyte disorders related to missed dialysis. RUE ulcers associated with steal syndrome with improved function postoperative day #1 status post right distal radial artery ligation. LLE peripheral vascular disease with ulcer of the left foot & gangrene of the left fifth toe; left femoral angiogram/angioplasty with possible stent to be completed today. PMHx:Class III obesity, CVA, dyspnea, mitral stenosis, hypercholesterolemia, HTN, leukocytosis, peripheral edema, chest pain, hyperlipidemia, type II diabetes, diabetic ulcers, weakness, smoking, amputated toe left foot. DIET:Consistent carbohydrate. PO intake 100% x 1 tray. LABS: Reviewed. Chloride 92, BUN 60, Cr 8.84, Glu 111, A1c 7.2, Ca 7.9, ALT 78, Procalcitonin 11.01. MEDICATIONS: Reviewed. NUTRITION FOCUSED PHYSICAL ASSESSMENT: GI symptoms / stool: No stool reported.Avery: 17. Skin Integrity: As noted in assessment above. ANTHROPOMETRICS: Current Wt: 109.3 kgBMI: 38.0 kg/m2.Admit weight: 111.7 kg IBW: 47.8 kg (233.7% IBW) ESTIMATED NEEDS (CLASS III OBESITY, WOUNDS): Calories: 1195 - 1434 kcal (25 - 30 kcal / kg IBW) Protein: 86 - 96 g protein (1.8 - 2.0 g / kg IBW) NUTRITION DIAGNOSIS: 1)Increased nutrient needs related to multiple skin issues, as evidenced by requirement for surgery. INTERVENTION: 1) Will add Glucerna to lunch and dinner trays. 2) MONITOR/EVALUATE: Diet / supplement tolerance, PO intake, labs, GI/nutrition status. Follow up per moderate nutrition risk guidelines.
--- NOTE | 2017-05-04 13:58 | DRSVH ---
PROCEDURE: 1. Abdominal aortogram. 2. Left lower extremity runoff. 3. Selective injection of left below-knee popliteal artery via right common femoral artery access. 4. Conventional angioplasty of left tibioperoneal trunk. 5. Conventional angioplasty of left popliteal artery. 6. Paclitaxel-eluting angioplasty of left popliteal artery. 7. Right groin closure device. 8. Conscious sedation x101 minutes. INDICATIONS: Left lower extremity toe necrosis. COMPARISON: [facility], XA, REVASC FEM/POP W/ ATHER, 05/14/2015, 9:57. [facility], XA, ARTERIO VENOUS FISTULOGRAM (PNL), 05/27/2015, 13:32. [facility], CT, CT ANGIO AORTA RUNOFF, 05/02/2017, 10:37. [facility], XA, ANGIO,EXTREM BILATERAL (PNL), 04/07/2015, 10:08. [facility], XA, ANGIO,EXTREM BILATERAL (PNL), 03/03/2015, 9:07. TECHNIQUE: Informed, written consent from the patient was obtained prior to the procedure. Patient wa s brought to the angiography suite, and conscious sedation was administered intravenously by prison staff, while continuous cardiorespiratory monitoring was performed. Maximal sterile barrier t echnique, hand hygiene, skin preparation, and sterile ultrasound technique (if ultrasound was utilize d) was followed. A mask, sterile gown, sterile gloves, a large sterile sheet, hand hygiene, and 2% ch lorhexidine or iodine was utilized for skin antisepsis. The bilateral groins were prepped and draped sterilely, and the skin and subcutaneous tissues overlying the right common femoral artery were infus ed with lidocaine. The right common femoral artery was accessed retrograde with a micropuncture set. A 5 [place] sheath was advanced. A 4 [place] pigtail catheter was advanced into the abdominal aorta and injected for AP aortography. The pigtail catheter was withdrawn into the distal aorta for bilateral oblique pelvic arteriography. A C2 catheter was advanced over an advantage Glidewire into the left co mmon femoral artery and was injected for left lower extremity runoff evaluation. Intravenous heparin was administered. A 4 [place] Vert catheter was used to advance an exchange length advanced Glidewire into the left popliteal artery, which was injected for selective left lower extremity arteriography. A 5 [place] Ansell sheath was then advanced and tip was placed in the left common femoral artery. An a ngioplasty balloon was advanced over an 018 wire into the left tibioperoneal trunk and was expanded t o 2.2 mm diameter, followed by repeat arteriography. A 40 mm long conventional angioplasty balloon wa s then used to angioplasty the proximal below-knee and distal above-knee popliteal artery to 4.2 mm d iameter. Subsequently, a 40 mm lung paclitaxel-eluting balloon was used to angioplasty the same locat ion of the popliteal artery. Repeat arteriography was performed. Sheath was removed and the right com mon femoral artery was closed with a Starclose device. FLUOROSCOPY TIME: 16 minutes FINDINGS: The abdominal aorta is widely patent. Right: The common, internal, and external iliac arteries are patent. There is a high-grade eccentric stenosi s within the distal common femoral artery which extends into the profunda femoral artery origin, whic h appears similarly compared to 2015. Superficial femoral artery is patent proximally. Left: Mild origin stenosis involves the common iliac artery, which is otherwise patent. Internal and graphic art designer al iliac arteries are patent. Common and profunda femoral arteries are patent. Superficial femoral ar joel demonstrates mild diffuse stenosis. High-grade stenosis within the distal above-knee and proxima l below-knee popliteal artery is present, resolved following conventional and paclitaxel-eluting richa oplasty. Anterior tibial artery is patent proximally, and not well-seen distally. Tibioperoneal trunk demonstrates a high-grade stenosis proximally, resolved following 2.2 mm angioplasty. Peroneal arter y occludes proximally. Posterior tibial artery demonstrates mild diffuse stenosis and is patent to di stal calf. IMPRESSION: 1. No significant inflow stenosis bilaterally. 2. Eccentric high-grade right common femoral artery bifurcation stenosis. Surgical revision of this l esion would be preferable, if clinically indicated. 3. High-grade left popliteal artery stenosis result following conventional and paclitaxel-eluting ang ioplasty. 4. High-grade tibial peroneal trunk stenosis resolved following conventional angioplasty. 5. Secondary to the patient's sensitivity to Plavix, oral aspirin therapy 325 mg p.o. q.d. was initia jaimie following the procedure. Patient should continue on this for life. Dictated by: Gregorio Yeboah M.D. on 05/04/2017 at 13:40 Approved by: Gregorio Yeboah M.D. on 05/04/2017 at 13:57
--- NOTE | 2017-05-04 14:42 | PCM.PNMED ---
Subjective Date of Service May 04, 2017 Subjective Patient did well overnight except for pain. Taken to manager labor delivery today and then dialysis. Exam Vital Signs Vital Sign - Last Date Time Temp Pulse Resp B/P Pulse Ox O2 Delivery O2 Flow Rate FiO2 05/04/17 09:50 66 05/04/17 08:04 36.7 12 127/74 97 Nasal Cannula 3.00 Intake and Output 05/03/17 05/03/17 05/04/17 Cumulative From/Thru 15:00 23:00 07:00 04/30/17 14:02 - 05/04/17 06:47 Intake Total 150 ml 150 ml 100 ml 3030 ml Output Total 20 ml 200 ml 0 ml 720 ml Balance 130 ml -50 ml 100 ml 2310 ml Intake Oral 100 ml 100 ml 1760 ml IV Total 150 ml 50 ml 1270 ml Output Urine Total 200 ml 0 ml 700 ml Estimated Blood Loss 20 ml 20 ml # Voids 4 Exam Gen: Obese, appears older than stated age Cardio: Regular rate and rhythm with no murmurs Pulmonary: CTA bilaterally with mild wheezing Abdomen: Soft, nontender Extremities: bandages as before Psychiatric: Flat affect. Alert and oriented to person, place, and time. IVs and Medications Medications Reviewed: Medications were reviewed in detail Lab and Diagnostics Result Diagram: 05/04/1740405/04/17404 X-Rays, CTs and MRIs X-RAY CHEST ONE VIEW, PORTABLE IMPRESSION: Suspect mild pulmonary edema, heart size at the upper limits of normal. Dictated by: Kiko Ferris M.D. on 04/30/2017 X-RAY CHEST ONE VIEW IMPRESSION: 1. Bibasilar pulmonary opacities may represent infection, edema or scarring. 2. Prominent pulmonary venous vascularity consistent with early mild fluid imbalance. Dictated by: Papito Grover M.D. on 05/02/2017 X-RAY LEFT FOOT COMPLETE, MINIMUM THREE VIEWS IMPRESSION: 1. No plain film evidence of osteomyelitis. If there is clinical concern for osteomyelitis consider an MRI with and without contrast. 2. Interval surgical resection through the proximal left third and fourth phalanges. Dictated by: Papito Grover M.D. on 05/01/2017 US DUPLEX DOPPLER OF UNILATERAL ARM ARTERIES, RIGHT IMPRESSION: 1. Fistula stealing from right radial artery with reversal of flow in the right radial artery. 2. Normal antegrade flow noted in the right ulnar artery. Dictated by: Heydi Solorzano MD, PhD on 04/30/2017 US DUPLEX DOPPLER UNILATERAL LEG ARTERIES, LEFT IMPRESSION: 1. Hemodynamically significant atherosclerotic disease involving the anterior tibial artery. 2. No hemodynamically significant disease involving the femoral arteries, popliteal artery or posterior tibial artery. Dictated by: Heydi Solorzano MD, PhD on 04/30/2017 US DUPLEX DOPPLER OF UNILATERAL ARM ARTERIES, RIGHT IMPRESSION: 1. Retrograde flow in the radial artery just peripheral to the arteriovenous dialysis fistula. These findings are consistent with arterial steal. 2. Findings consistent with a patent palmar arch. Dictated by: Emi José M.D. on 05/02/2017 CT ANGIOGRAPHY OF THE AORTA WITH RUN-OFF WITH AND WITHOUT CONTRAST IMPRESSION: 1. Focal, dense intraluminal calcification of the right common femoral artery. An atherectomy was performed previously at this site. If the patient endorses recurrent symptoms of the right lower extremity, repeat atherectomy is recommended. Consider interventional radiology consultation. 2. Multifocal bilateral high-grade stenoses of the superficial femoral arteries. These are likely amenable to percutaneous angioplasty if clinically indicated to improve flow to the infrageniculate lower extremities. 3. Diffuse narrowing of the bilateral popliteal arteries secondary to dense atheromatous plaque and calcifications. 4. Diffuse multifocal narrowing and high-grade stenoses at the infrageniculate arteries bilaterally. There is 2 vessel bilateral lower extremity runoff. Dictated by: Emi José M.D. on 05/02/2017 12-lead ECG SR 70 incomplete LBBB, inferior lateral T-wave inversions, no acute peak T- waves (personally reviewed) Assessment & Plan Social crease 51-year-old woman presents with progressive diabetic foot ulcer and fluid/electrolyte abnormalities related to missed dialysis Diabetic foot ulcer left foot. Acute on chronic. Likely osteomyelitis. ESR greater than 140. Clinical exam with necrotic fifth phalanx. Leukocytosis but no other signs of systemic sepsis. - Arterial Dopplers pending -Cultures to be obtained at time of debridement -Stopped Vancomycin due to MRSA neg -Continue Zosyn at renally adjusted doses -Pain management by mouth and/or IV -CT angio aortogram with runoff: radiology reported severe occlusion in LLE -Reportedly talking to Dr. 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 Right hand skin ulceration second to vascular steal syndrome, chronic. - Arterial Doppler shows fistula stealing from right radial artery - Antibiotics as above - Surgery yesterday with Dr. Frost; his note is in the chart End stage renal disease, hemodialysis, chronic. Chest x-ray suggests fluid overload the patient is asymptomatic with good oxygenation. - Oxygen as needed - No intravenous fluid resuscitation - Nephrology consult - DIALYSIS today - Patient requires lidocaine ointment prior to dialysis were ordered negative Type II diabetes mellitus, insulin-dependent, chronic. - Hemoglobin A1c - Continue usual basal insulin - 30 units at bedtime - Nutritional and correctional lispro - Post op will consider moving to ggt is she is uncontrolled; currently doing great - 1 episode of hypoglycemia on lab work, but bedside BG checks were normal - Strict postop glucose control less than 180 - Unsure why patient had a spike overnight. Suspect it is from outside fast food being brought in by Resolving, stable and are chronic problems: Hyperkalemia, acute, present on admission. resolved Initial serum potassium 6.8. Received insulin, glucose and calcium gluconate. No evidence of peaked T waves. - Kayexalate 1 was refused by patient - We will hold off on further calcium gluconate unless signs of EKG toxicity - Dialysis for 2 hours today which resolved the problem Hypertension, chronic.Continue usual medications except reduce diuretics in light of acute infection Headache, chronic migraine. Patient states the trip tans are not effective. She endorses rest and Vicodin. History of CVA, chronic. Patient is on aspirin prophylaxis. Plan to continue; should not be on sumatriptan because she has this hx Asthma - when necessary bronchodilators Disposition: Unknown timeline for discharge VTE Prophylaxis: Sub-Q Heparin (Unfractionated) Resuscitation Status: CPR: Attempt Resuscitation Attending Statement The patient was seen and examined together with on May 04 and I agree with the history, exam findings, and plan as outlined in the note above. I did participate in all aspects of the services provided today, including documentation and the plan of care. Patient is advised to stay overnight for observation of her after her lower extremity stenting procedure Rajan Linton DO May 04, 2017 14:42 Evan Frost MD May 05, 2017 15:47
--- NOTE | 2017-05-04 14:50 | NUR ---
Dialysis note Dialysis started at 0845, pt dialyzed 1/2 hour and tx dc'd, pt was to go to laborer pipeline for lower extrem angiogram. Dialysis restarted at 1250 after angiogram pt agreed to dialyze 1.5 hours to complete her requested time of 2hr tx. tx uneventful, VSS see DTR or [facility] record for complete VS 500ML removed from pt, 29.0L processed, pt laid flat for 1.5 hrs per post angio. protocol roin dressing Dry and intack, leg wm, Transfered to rm 2031after tx.
--- NOTE | 2017-05-04 16:09 | PCM.DIMED ---
Rajan Linton DO 05/04/17 1609: Discharge Instructions Date of Service May 04, 2017 Dates of Hospitalization Apr 30, 2017 at 19:09 Discharge Diagnosis Discharge Diagnosis Ischemic right hand s/p ligation of distal right radial artery. Ischemic left foot s/p angioplasty Call your provider Call your provider for: Fever or Chills, Shortness of breath, Bleeding, Chest pain Patient Instructions Patient Instructions You were admitted for pain in the right hand and left foot. You underwent surgical correction of you right hand and hand balloon angioplasty in the left leg. It was recommended that you stay overnight tonight but you declined, wishing to leave against medical advice. Please ensure that you follow up with Dr. Pardo within 1 week, as well as Dr. Frost's surgical group within 2 weeks. If you develop fever, chills, or severe pain in your extremities please return to the ED. Follow-up Provider: Radha Pardo DPM Follow-up with PCP in: 1 week Provider: Bacilio Frost MD Follow-up in: 2 weeks (within 2 weeks) Evan Frost MD 05/05/17 1747: Discharge Instructions Attending's Statement The patient was seen and examined together with on May 04 and I agree with the history, exam findings, and plan as outlined in the note above. I did participate in all aspects of the services provided today, including documentation and the plan of care. The patient refuses to stay overnight for observation as recommended by surgery after placement of her leg stent. Instructions are given as outlined above to maximize her ongoing care for her peripheral general disease and ongoing foot infection as well as her postoperative care for her right hand radial artery ligation for hand steal syndrome. Rajan Linton DO May 04, 2017 16:09 Evan Frost MD May 05, 2017 17:47
--- NOTE | 2017-05-04 16:52 | NUR ---
Inpatient Wound Nurse Patient seen for dressing change on R hand index, middle, and ring fingers. Patient stated that pain was greatly improved and wounds do appear improved since yesterday's procedure. Very minimal drainage noted on removed dressing and wound beds are pinker, less dusky. Wounds were cleansed with NS and blotted dry. Dorsum of fingers were covered with Adaptic and roll gauze, secured with retention tape. Patient was given supplies for two additional dressing changes and stated that he understood all steps of dressing change. Patient was instructed to call Wound Center for next appointment (as they are closed at this time and [facility] unable to schedule). Patient declined dressing change to LLE and stated that current dressing "will be fine." She is aware that she has dialysis on Sunday at 1 pm.
--- NOTE | 2017-05-04 17:33 | NUR ---
Left unit/AMA Pt left [facility] room 2030 at ~0830 for dialysis in [facility], called by sales representative raw fibers and informed that they were stopping dialysis and that wastewater analyst lab analyst was taking Pt in for procedure, Pt completed procedure and was transferred directly back to [facility] to resume dialysis, GERMÁN RN updated, Pt returned to [facility] room 2030 at ~1510 after completing dialysis. Pt verbalized at this time that she was going to leave today, made aware who came and spoke with Pt, AMA paperwork printed and Pt signed after reviewing some potential risks of leaving AMA at this time. Pt's IV access D/C'd and intact. Pt given discharge educational materials on osteomyelitis and diabetic foot ulcers. Pt instructed to f/u with Dr. Pardo within 1 week and with the surgical team within 2 weeks of leaving, Pt verbalized that she would f/u with Dr. Pardo via wound center. Pt left the floor at ~1650.
--- NOTE | 2017-05-04 17:56 | NUR ---
Social Work Note: Discharge/AMA Data& Assessment: Per MD and RN, pt left AMA. Juancarlos Robles is a 51 year old female admitted on 04/30/2017 for ESRD and hyperkalemia. Per MD pt is not willing to stay another night and leaving against medical advice. Pt transporting home via POV. No other MD orders or discharge needs identified. Plan: Pt left AMA. No other MD orders or discharge needs identified. TG Lott
--- NOTE | 2017-05-04 18:59 | PCM.DC.MED ---
Discharge Summary Date of Service May 04, 2017 Dates of Hospitalization Date of Hospital Admission Apr 30, 2017 at 19:09 Date of Discharge: May 04, 2017 Providers: Admitting Physician: Michael Sandhu MD Primary Care Physician: Rukhsana Triplett MD Attending Physician: Evan Frost MD Diagnosis at Time of Discharge Diagnosis at Time of Discharge Ischemic right hand s/p ligation of distal right radial artery. Ischemic left foot s/p angioplasty Procedures XRay, CTs & MRIs X-RAY CHEST ONE VIEW, PORTABLE IMPRESSION: Suspect mild pulmonary edema, heart size at the upper limits of normal. Dictated by: Kiko Ferris M.D. on 04/30/2017 X-RAY CHEST ONE VIEW IMPRESSION: 1. Bibasilar pulmonary opacities may represent infection, edema or scarring. 2. Prominent pulmonary venous vascularity consistent with early mild fluid imbalance. Dictated by: Papito Grover M.D. on 05/02/2017 X-RAY LEFT FOOT COMPLETE, MINIMUM THREE VIEWS IMPRESSION: 1. No plain film evidence of osteomyelitis. If there is clinical concern for osteomyelitis consider an MRI with and without contrast. 2. Interval surgical resection through the proximal left third and fourth phalanges. Dictated by: Papito Grover M.D. on 05/01/2017 US DUPLEX DOPPLER OF UNILATERAL ARM ARTERIES, RIGHT IMPRESSION: 1. Fistula stealing from right radial artery with reversal of flow in the right radial artery. 2. Normal antegrade flow noted in the right ulnar artery. Dictated by: Heydi Solorzano MD, PhD on 04/30/2017 US DUPLEX DOPPLER UNILATERAL LEG ARTERIES, LEFT IMPRESSION: 1. Hemodynamically significant atherosclerotic disease involving the anterior tibial artery. 2. No hemodynamically significant disease involving the femoral arteries, popliteal artery or posterior tibial artery. Dictated by: Heydi Solorzano MD, PhD on 04/30/2017 US DUPLEX DOPPLER OF UNILATERAL ARM ARTERIES, RIGHT IMPRESSION: 1. Retrograde flow in the radial artery just peripheral to the arteriovenous dialysis fistula. These findings are consistent with arterial steal. 2. Findings consistent with a patent palmar arch. Dictated by: Emi José M.D. on 05/02/2017 CT ANGIOGRAPHY OF THE AORTA WITH RUN-OFF WITH AND WITHOUT CONTRAST IMPRESSION: 1. Focal, dense intraluminal calcification of the right common femoral artery. An atherectomy was performed previously at this site. If the patient endorses recurrent symptoms of the right lower extremity, repeat atherectomy is recommended. Consider interventional radiology consultation. 2. Multifocal bilateral high-grade stenoses of the superficial femoral arteries. These are likely amenable to percutaneous angioplasty if clinically indicated to improve flow to the infrageniculate lower extremities. 3. Diffuse narrowing of the bilateral popliteal arteries secondary to dense atheromatous plaque and calcifications. 4. Diffuse multifocal narrowing and high-grade stenoses at the infrageniculate arteries bilaterally. There is 2 vessel bilateral lower extremity runoff. Dictated by: Emi José M.D. on 05/02/2017 ECG 12 Lead SR 70 incomplete LBBB, inferior lateral T-wave inversions, no acute peak T- waves (personally reviewed) Brief History Ms. Robles is a 51-year-old female with past medical history of end-stage renal disease on hemodialysis, HTN, diabetes with retinopathy, neuropathy and nephropathy, extensive peripheral vascular and coronary artery disease, presented to the ED secondary to progressively worsening nonhealing left foot and right upper extremity digit wounds. She seems hemodialysis on Sunday and Sunday and was unable to complete her dialysis yesterday 04/30/2017 secondary to chronic extremity pain. Nephrology consult to manage hemodialysis and electrolyte disturbances. After admission to PCU patient was scheduled to receive emergent dialysis treatment which she refused stating that undergoing the treatment was "too painful. She also refused Kayexalate despite being warned against this secondary to hyperkalemia. Patient was confrontational to hospital staff and continued to refuse treatment. Today during interview patient states right hand/digit pain as well as left foot pain which radiates to the tibial area. She does not state she has any chest pain or shortness of breath though states there is some abdominal fullness. She states she missed her dialysis appointment because she does not like undergoing dialysis treatment stating that it hurts though she is willing to undergo treatment today. Hospital Course 51-year-old woman presents with progressive diabetic foot ulcer and fluid/ electrolyte abnormalities related to missed dialysis. Patient was evaluated by our surgical and interventional radiology team's and radial ligation of the right hand was performed without complication at this point. The left lower leg underwent angioplasty to restore blood flow to the ischemic foot. Patient states that she is doing much better now. While in the hospital his sugars were fairly well-controlled although her appears to brought her fast food which may blood glucose control difficult. Patient was instructed on the risks and benefits of leaving today but decided she wished to leave AMA. Forms were signed and she was given clear follow-up instructions.. She is scheduled for follow-up in wound care next Sunday. She states that she will follow-up with surgery within 2 weeks. Her next dialysis is scheduled for Sunday. Problem list is as below. Ischemic left foot ulcer. Acute on chronic. - Arterial Dopplers pending -Cultures to be obtained at time of debridement -Stopped Vancomycin due to MRSA neg -Continue Zosyn at renally adjusted doses -Pain management by mouth and/or IV -CT angio aortogram with runoff: radiology reported severe occlusion in LLE -Reportedly talking to Dr. Frost about plan going forward -Cath for angioplasty Right hand skin ulceration second to vascular steal syndrome, chronic. - Arterial Doppler shows fistula stealing from right radial artery - Antibiotics as above - Surgery yesterday with Dr. Frost; his note is in the chart End stage renal disease, hemodialysis, chronic. Chest x-ray suggests fluid overload the patient is asymptomatic with good oxygenation. - Oxygen as needed - No intravenous fluid resuscitation - Nephrology consult - DIALYSIS today - Patient requires lidocaine ointment prior to dialysis were ordered negative Type II diabetes mellitus, insulin-dependent, chronic. - Hemoglobin A1c - Continue usual basal insulin - 30 units at bedtime - Nutritional and correctional lispro - Post op will consider moving to ggt is she is uncontrolled; currently doing great - 1 episode of hypoglycemia on lab work, but bedside BG checks were normal - Strict postop glucose control less than 180 - Unsure why patient had a spike overnight. Suspect it is from outside fast food being brought in by Resolving, stable and are chronic problems: Hyperkalemia, acute, present on admission. resolved Initial serum potassium 6.8. Received insulin, glucose and calcium gluconate. No evidence of peaked T waves. - Kayexalate 1 was refused by patient - We will hold off on further calcium gluconate unless signs of EKG toxicity - Dialysis for 2 hours today which resolved the problem Hypertension, chronic.Continue usual medications except reduce diuretics in light of acute infection Headache, chronic migraine. Patient states the trip tans are not effective. She endorses rest and Vicodin. History of CVA, chronic. Patient is on aspirin prophylaxis. Plan to continue; should not be on sumatriptan because she has this hx Asthma - when necessary bronchodilators Status: Patient discharged in improved and stable condition and AGAINST MEDICAL ADVICE. Exam Vital Signs (Last) Date Time Temp Pulse Resp B/P Pulse Ox O2 Delivery O2 Flow Rate FiO2 05/04/17 14:30 68 18 170/65 05/04/17 08:04 Supplement Oxygen 05/04/17 08:04 36.7 97 3.00 Exam Gen: Obese, appears older than stated age Cardio: Regular rate and rhythm with no murmurs Pulmonary: CTA bilaterally with mild wheezing Abdomen: Soft, nontender Extremities: bandages as before Psychiatric: Flat affect. Alert and oriented to person, place, and time. Test 04/30/17 15:22 05/01/17 04:35 05/03/17 04:30 05/04/17 04:00 Erythrocyte Sedimentation Rate > 140mm/hr (0-40) Lactic Acid Level 1.2mmol/L (0.4-2.0) Magnesium Level 2.4mg/dL (1.6-2.6) Hemoglobin A1c 7.2% (4.8-5.6) Vancomycin Level Trough 11.5mcg/mL Prothrombin Time 12.6sec (8.1-12.5) Prothromb Time International Ratio 1.17ratio Urine Color Yellow (YELLOW) Urine Appearance Clear (CLEAR,HAZY) Urine pH 7.0 (5.0-8.0) Urine Specific Garner 1.015 (1.003-1.035) Urine Protein 100mg/dL (NEG,TRACE) Urine Glucose (UA) Negativemg/dL (NEGATIVE) Urine Ketones Negativemg/dL (NEGATIVE) Urine Occult Blood Trace (NEGATIVE) Urine Nitrite Negative (NEGATIVE) Urine Bilirubin Negative (NEGATIVE) Urine Urobilinogen Normalmg/dL (NORMAL) Urine Leukocyte Esterase Negative (NEGATIVE) Urine RBC 0-2/hpf (0-2) Urine WBC 0-5/hpf (0-5) Urine Epithelial Cells Moderate/hpf (NONE-MOD) Urine Crystals None seen (NONE SEEN) Urine Bacteria Moderate/hpf (NONE-FEW) Urine Hyaline Casts None/lpf (NONE) Urine Granular Casts None seen (NONE SEEN) Urine Waxy Casts None seen (NONE SEEN) Urine Red Blood Cell Casts None seen (NONE SEEN) Urine White Blood Cell Casts None seen (NONE SEEN) Urine Mucus None seen (None Seen) Urine Trichomonas None seen (NONE SEEN) Urine Yeast Moderate (NONE SEEN) Urinalysis Comment None Urine Culture Reflexed Indicated Test 05/04/17 04:05 White Blood Count 18.9th/mm3 (3.8-10.1) Red Blood Count 3.08mil/mm3 (3.90-5.20) Hemoglobin 9.6g/dL (12.0-15.6) Hematocrit 30.6% (35.0-46.0) Mean Corpuscular Volume 99.4fL (81-100) Mean Corpuscular Hemoglobin 31.2pg (27.0-35.0) Mean Corpuscular Hemoglobin Concent 31.4% (32.0-37.0) Red Cell Distribution Width 14.9% (12.3-15.4) Platelet Count 356bil/L (150-400) Neutrophils (%) (Auto) 91.4% (40-74) Lymphocytes (%) (Auto) 3.3% (14-46) Monocytes (%) (Auto) 4.9% (4-12) Eosinophils (%) (Auto) 0% (0-5) Basophils (%) (Auto) 0.1% (0-3) Sodium Level 138mEq/L (134-144) Potassium Level 5.1mEq/L (3.5-5.2) Chloride Level 92mEq/L (97-108) Carbon Dioxide Level 24mmol/L (18-29) Blood Urea Nitrogen 60mg/dL (6-24) Creatinine 8.84mg/dL (0.57-1.00) Estimat Glomerular Filtration Rate 7mL/min (>59) Glucose Level 111mg/dL (60-99) Calcium Level 7.9mg/dL (8.5-10.1) Total Bilirubin 0.2mg/dL (0.0-1.2) Aspartate Amino Transf (AST/SGOT) 27U/L (0-50) Alanine Aminotransferase (ALT/SGPT) 78U/L (0-32) Alkaline Phosphatase 83U/L (25-150) Total Protein 6.5g/dL (6.4-8.4) Albumin 3.3g/dL (3.4-5.0) Procalcitonin 11.01ng/mL (0.00-0.08) Discharge Medications Discharge Medications Amlodipine (Norvasc) 5 Mg Tablet 5 MG PO HS (Reported) Amoxicillin/Clav K 875-125 mg (Augmentin 875-125 mg) 1 Each Tablet 1 TABLET PO BID Prescribed by: JAVY AHMADI MD Aspirin (Aspirin) 325 Mg Tablet 325 MG PO DAILY (Reported) Aspirin (Aspirin) 81 Mg Tablet 81 MG PO DAILY (Reported) Calcium Acetate (Calcium Acetate) 667 Mg Tablet 667 MG PO TIDWM (Reported) Carvedilol (Carvedilol) 25 Mg Tablet 25 MG PO BIDWM (Reported) Cholecalciferol (Vitamin D3) (Vitamin D3) 50,000 Unit Capsule 50,000 UNIT PO WEEKLY (Reported) Takes on Mondays Ezetimibe (Ezetimibe) 10 Mg Tablet 10 MG PO DAILY (Reported) Furosemide (Furosemide) 80 Mg Tab 80 MG PO HS (Reported) Insulin Glargine (Lantus U100 Solostar Insulin Pen) 100 Unit/1 Ml Insuln.pen 30 UNIT SUBQ HS (Reported) Insulin Regular, Human (HUMulin-R U100 Insulin Vial) 100 Unit/1 Ml Vial 3-6 UNIT SUBQ TIDWM (Reported) SLIDING SCALE Lisinopril (Lisinopril) 5 Mg Tablet 5 MG PO HS (Reported) Losartan Potassium (Losartan Potassium) 25 Mg Tablet 25 MG PO DAILY (Reported) Metolazone (Metolazone) 5 Mg Tablet 5 MG PO HS (Reported) Multivitamin/Iron/Folic Acid (Cerovite Advanced Form Tab) 1 Each Tablet 1 EACH PO DAILY (Reported) Sodium Polystyrene Sulfonate (Kionex) 15 Gm/60 Ml Oral.susp 15 GM PO //Sun ( Reported) As needed Albuterol HFA (Proair HFA) 8.5 Gm Hfa.aer.ad 2 PUFFS INHALATION Q4H PRN PRN For Shortness of Breath (Reported) Hydrocodone-Acetaminophen 5-325 mg (Hydrocodone-Acetaminophen 5-325 mg) 1 Each Tablet 1 TABLET PO Q6 PRN PRN For Mild Pain Prescribed by: JAVY AHMADI MD Lorazepam (Lorazepam) 0.5 Mg Tablet 0.5 MG PO TID PRN PRN For Anxiety (Reported ) Uses mainly for insomnia Nitroglycerin SL (Nitroglycerin SL) 0.4 Mg Tab.subl 0.4 MG SL PRN HYPERtension ( Reported) Ranitidine (Ranitidine) 150 Mg Capsule 150 MG PO BID PRN PRN acid reflux ( Reported) Sumatriptan Succinate (Imitrex) 50 Mg Tablet 50 MG PO DAILY PRN PRN Migraines ( Reported) Followup Plan Disposition: Home, AGAINST MEDICAL ADVICE. Gen. surgery requested that she stay overnight to be observed after placement of her leg stent. The patient however declined. Patient Instructions You were admitted for pain in the right hand and left foot. You underwent surgical correction of you right hand and hand balloon angioplasty in the left leg. It was recommended that you stay overnight tonight but you declined, wishing to leave against medical advice. Please ensure that you follow up with Dr. Pardo within 1 week, as well as Dr. Frost's surgical group within 2 weeks. If you develop fever, chills, or severe pain in your extremities please return to the ED. Follow-up Provider: Radha Pardo DPM Follow-up with PCP in: 1 week Provider: Bacilio Frost MD Follow-up in: 2 weeks (within 2 weeks) Time spent 50 minutes Attending Statement The patient was seen and examined together with on May 04 and I agree with the history, exam findings, and plan as outlined in the note above. I did participate in all aspects of the services provided today, including documentation and the plan of care. The patient declines stain and was adamant about leaving the hospital AGAINST MEDICAL ADVICE. She has had 2 procedures recently both stenting of the leg as well as her right radial artery ligation. The patient appears to be doing medically recently well and is on chronic antiplatelet therapy with aspirin. She was dialyzed on the day of discharge and notes that [facility] week as well as continue dialysis as scheduled on Sunday. Rajan Linton DO May 04, 2017 18:59 Evan Frost MD May 05, 2017 17:49
[2017-05-07] MEDS ORDERED: Ergocalciferol (Vit D2) 50,000 Unit Capsule PO SCH (08:30)
== END 2017-05-04 16:40 | disposition left against medical advice (07) | DRG 252 ==
LOC: SED 13:43 → PCC 19:09
PROVIDERS: ADMIT Internal Medicine; ATTEND Internal Medicine
PROC: 5A1D60Z (ICD-10-PCS; 2017-05-01)
PROC: 03LB0ZZ Occlusion of Right Radial Artery, Open Approach (ICD-10-PCS; principal; 2017-05-03 12:15)
PROC: 047N3Z1 Dilation of Left Popliteal Artery using Drug-Coated Balloon, Percutaneous Approach (ICD-10-PCS; 2017-05-04)
PROC: 047U3ZZ Dilation of Left Peroneal Artery, Percutaneous Approach (ICD-10-PCS; 2017-05-04)
DX: T82.898A Other specified complication of vascular prosthetic devices, implants and grafts, initial encounter (principal); N18.6 End stage renal disease; E11.52 Type 2 diabetes mellitus with diabetic peripheral angiopathy with gangrene; M86.172 Other acute osteomyelitis, left ankle and foot; I50.32 Chronic diastolic (congestive) heart failure; I12.0 Hypertensive chronic kidney disease with stage 5 chronic kidney disease or end stage renal disease; E11.621 Type 2 diabetes mellitus with foot ulcer; L97.529 Non-pressure chronic ulcer of other part of left foot with unspecified severity; E11.65 Type 2 diabetes mellitus with hyperglycemia; I70.245 Atherosclerosis of native arteries of left leg with ulceration of other part of foot; Z79.4 Long term (current) use of insulin; Z99.2 Dependence on renal dialysis; Z91.15 Patient's noncompliance with renal dialysis; E11.21 Type 2 diabetes mellitus with diabetic nephropathy; E11.43 Type 2 diabetes mellitus with diabetic autonomic (poly)neuropathy; K31.84 Gastroparesis; E66.9 Obesity, unspecified; Z68.37 Body mass index [BMI] 37.0-37.9, adult; E11.69 Type 2 diabetes mellitus with other specified complication; Z89.422 Acquired absence of other left toe(s); E87.5 Hyperkalemia; L08.9 Local infection of the skin and subcutaneous tissue, unspecified; I25.10 Atherosclerotic heart disease of native coronary artery without angina pectoris; E78.5 Hyperlipidemia, unspecified; F17.210 Nicotine dependence, cigarettes, uncomplicated; L98.499 Non-pressure chronic ulcer of skin of other sites with unspecified severity; J45.909 Unspecified asthma, uncomplicated

== ENCOUNTER → 2017-06-01 | Day surgery (SDC) | payer MEDICARE, MEDICAID ==
[~2017-06-01] VITALS: Ht 168.9 cm; Wt 95.2 kg
[2017-06-01] VITALS (11 sets, daily range): BP systolic 110–132; BP diastolic 48–95; PULSE 63–66; RESP 15–16; O2SAT 92–99
[~2017-06-01] MED LIST changes: +ASPI-973 PO; -CALC667S PO; +CALC667T5 PO; +EZET10TA27 PO; +Heparin 10,000 Unit/1,000 mL NS Premix IV ONE; -IPRA4AER IH; +LOSA25TA21 PO; +NITR0.4T38 SL; -NITR0.4T6 SL; +Sodium Chloride LOK Flush 10 mL Syringe IVFLUSH PRN; -Vancomycin Dose per Pharmacist XX ONE; +fentaNYL-PF 50 mCg/mL 2 mL Inj ONE
[2017-06-01 11:27] LABS: BASOPHILS % (AUTO) 0.5 % (0-3); EOSINOPHILS % (AUTO) 3.9 % (0-5); MONOCYTES % (AUTO) 7.3 % (4-12); Mean Corpuscular Volume 103.1 fL (81-100); NEUTROPHILS % (AUTO) 80.7 % (40-74); Platelet Count 363 bil/L (150-400)
[2017-06-01 11:45] LABS: INR 1.08 ratio
--- NOTE | 2017-06-01 16:58 | DRSVH ---
PROCEDURE: 1. Abdominal aortogram. 2. Bilateral pelvic arteriography. 3. Selective left lower extremity runoff evaluation. 4. Thoracic aortogram. 5. Selective right subclavian arteriography. 6. Conscious sedation x85 minutes. INDICATIONS: Left lower and right upper extremity ischemia. COMPARISON: [facility], XA, ANGIO,EXTREM BILATERAL (PNL), 05/04/2017, 10:04. TECHNIQUE: Informed, written consent from the patient was obtained prior to the procedure. Patient wa s brought to the angiography suite, and conscious sedation was administered intravenously by [facility] staff, while continuous cardiorespiratory monitoring was performed. Maximal sterile barrier t echnique, hand hygiene, skin preparation, and sterile ultrasound technique (if ultrasound was utilize d) was followed. A mask, sterile gown, sterile gloves, a large sterile sheet, hand hygiene, and 2% ch lorhexidine or iodine was utilized for skin antisepsis. The bilateral groins were prepped and draped sterilely, and the skin and subcutaneous tissues overlying the right common femoral artery were infus ed with lidocaine. The common femoral artery was accessed retrograde with a micropuncture set. A 4 Fr ench sheath was advanced, through which a 4 Gambian pigtail catheter was advanced into the distal abdo fiorella aorta, and was injected for aortography, as well as bilateral pelvic arteriography. Subsequentl y, a 4 Gambian C2 catheter was used to select the left common femoral artery, which was injected for l eft lower extremity runoff evaluation. A 4 Gambian pigtail catheter was advanced into the ascending th oracic aorta and injected for PORTUGUESE thoracic aortography. A 4 Gambian Vert catheter was then used to morgan ect the right subclavian artery, which was injected for right upper extremity runoff evaluation. FLUOROSCOPY TIME: 7.8 minutes FINDINGS: The lower abdominal aorta is widely patent. Right pelvic vessels: The common, internal, and external iliac arteries are patent. High-grade eccent crista stenosis within the inferior common femoral artery. High grade stenoses involve the profunda and superficial femoral artery origins. Left pelvic vessels and left lower extremity: Mild focal stenosis within the mid common iliac artery, which is otherwise patent. Internal and external iliac arteries patent. Common and profunda femoral arteries patent. Superficial femoral artery demonstrate mild diffuse stenosis. Mild diffuse stenosis within the above and below-knee popliteal artery. Anterior tibial artery is patent to the distal calf . Tibioperoneal trunk remains patent. Peroneal artery suboptimally visualized, but grossly patent as visualized. Posterior tibial artery is suboptimally visualized. Thoracic aorta: The thoracic aorta heart is widely patent. There is standard branching anatomy. Right upper extremity: The innominate and right subclavian arteries are patent. The right brachial ar joel is patent. The right radial artery is patent proximally, and there is prominent filling of the a rteriovenous fistula. Distal to the fistula, there is a high-grade focal stenosis, as well as a focal occlusion of the radial artery at the level of the radiocarpal joint. The ulnar artery demonstrates mild diffuse stenosis with superimposed high-grade stenosis distally at the level of the proximal met acarpals. IMPRESSION: 1. No significant pelvic inflow stenosis bilaterally. 2. No significant left-sided outflow stenosis. The site of previous popliteal artery angioplasty is p atent. 3. Left anterior tibial artery is patent the distal calf. Previously angioplastied tibial peroneal tr unk is patent. Suboptimally visualized peroneal and posterior tibial arteries. 4. Extensive small vessel disease involving the right upper extremity radial and ulnar arteries. It i s possible that arteriovenous fistula revision may restore adequate flow to the right upper extremity digits. Dictated by: Gregorio Yeboah M.D. on 06/01/2017 at 16:47 Approved by: Gregorio Yeboah M.D. on 06/01/2017 at 16:56
== END | disposition home or self-care (01) ==
LOC: SOUO 00:04
PROVIDERS: ATTEND Radiology Diagnostic Radiology
DX: I99.8 Other disorder of circulatory system (principal); Z98.62 Peripheral vascular angioplasty status; I77.89 Other specified disorders of arteries and arterioles; I70.201 Unspecified atherosclerosis of native arteries of extremities, right leg; Z89.422 Acquired absence of other left toe(s); E11.22 Type 2 diabetes mellitus with diabetic chronic kidney disease; I12.0 Hypertensive chronic kidney disease with stage 5 chronic kidney disease or end stage renal disease; F17.210 Nicotine dependence, cigarettes, uncomplicated; N18.6 End stage renal disease; Z99.2 Dependence on renal dialysis; Z79.4 Long term (current) use of insulin; Z86.73 Personal history of transient ischemic attack (TIA), and cerebral infarction without residual deficits; E78.5 Hyperlipidemia, unspecified; Z79.82 Long term (current) use of aspirin; E11.621 Type 2 diabetes mellitus with foot ulcer; L97.529 Non-pressure chronic ulcer of other part of left foot with unspecified severity